=== PATIENT | female | born 1985 | race Caucasian/White ===

== ENCOUNTER 2019-11-05 19:40 | Emergency (ER) | payer OTHER, SELFPAY ==
[2019-11-05 20:01] VITALS: BP 137/81; PULSE 79; O2SAT 95
[2019-11-05 20:04] VITALS: BP 137/81; PULSE 83; RESP 15; TEMP 37.4; O2SAT 99; BMI 31.1
[2019-11-05 20:36] LABS: Add Manual Diff / Slide Review NO; Basophils Absolute Auto 0 /uL (0-100); Basophils Percent Auto 0.4 % (0-2); Eosinophils Absolute Auto 200 /uL (0-450); Hematocrit 41.1 % (36-46); Hemoglobin 14.3 g/dL (12.0-16.0); Lymphocytes Absolute Auto 2500 /uL (1100-4500); Lymphocytes Percent Auto 29.3 % (25-40); Mean Corpuscular HGB Conc 34.7 % (30-36); Mean Corpuscular Hemoglobin 32.5 PG (26-34); Mean Corpuscular Volume 93.7 fL (80-100); Monocytes Absolute Auto 600 /uL (0-900); Monocytes Percent Auto 7.5 % (3-14); Neutrophils Absolute Auto 5300 /uL (1500-7000); Neutrophils Percent Auto 60.8 % (50-75); Platelet Count 215 X10^3/uL (150-400); Red Blood Cell Count 4.38 X10^6/uL (4.0-5.2); Red Cell Distribution Width 12.3 % (11.6-14.8); White Blood Cell Count 8.7 X10^3/uL (4.5-11.0)
[2019-11-05 20:40] LABS: Prothrombin Time 11.8 SECONDS (10.1-12.7)
[2019-11-05 20:43] LABS: PTT Partial Thromboplastin Tim 30 SECONDS (26.4-36.2)
--- NOTE | 2019-11-05 20:51 | ED_ITS ---
HPI - <PARADISE Steele - Last Filed: 11/05/19 21:43> General Chief complaint: Urogenital-Female Stated complaint: vrt mechanic problem, bleeding, positive test Time Seen by Provider: 11/05/19 19:57 Source: patient Mode of arrival: Ambulatory Limitations: no limitations History of Present Illness HPI Narrative: This is a 34-year-old female, nonsmoker, who presents to ED with vaginal bleeding with positive home test yesterday. LMP was 10/11/18. Patient reports with 2 electve AB and 3 spontaneous AB in the past. Patient reports [facility] [place] [facility] DEVI-3 and was to follow-up in 6 weeks if pathology test was normal. Patient states has had small amount of brownish vaginal discharge after the procedure but this morning she noticed brown and red vaginal spotting and this afternoon she had soaked a panty liner with blood before coming into ED. Patient reports she and her partner have been trying to conceive and currently takes folic acid, vitamin, vitamin-D, omega-3 and anti acid. Patient reports chronic medical history as scoliosis with a corrective surgery. Patient reports mild cramping in suprapubic region and rates 3 to 7/10 pain. Date of Last Menstrual Period: 10/12/19 Related Data Home Medications Medication Instructions Recorded Confirmed No Known Home Medications 06/14/18 06/14/18 Allergies Allergy/AdvReac Type Severity Reaction Status Date / Time No Known Drug Allergies Allergy Verified 06/14/18 11:06 Review of Systems <PARADISE Steele - Last Filed: 11/05/19 21:43> Review of Systems Narrative: General: Denies fever, chills, fatigue, malaise, sweats. HEENT: Denies sinus pain, ear pain, sore throat, difficulty swallowing, dizziness. Respiratory: Denies dyspnea, cough, wheezing, hemoptysis, sputum. Cardiovascular: Denies chest pain, palpitations, orthopnea, edema. Gastrointestinal: Denies nausea, vomiting, abdominal pain, diarrhea, constipation, melena. : See HPI Musculoskeletal: Denies weakness, joint pain or bony pain. Skin: Denies rash, skin lesions, or other. Neurologic: Denies weakness, headache, numbness, change in speech, confusion, seizures, incoordination. Psychiatric: No concerning psychosocial issues. 12-point review of systems is negative except for those stated above. PMFSH - <PARADISE Steele - Last Filed: 11/05/19 21:43> Past Medical History Additional medical history: Scoliosis Surgical history: Reports other (Scoliosis corrective surgery) INFORMATION SERVICES CONSULTANT history: Reports Spontaneous (3), Therapeutic (2) and Cervical Dysplasia (DEVI 3) Date of Last Menstrual Period: 10/12/19 Family History Family history: Reports non-contributory Exam <PARADISE Steele - Last Filed: 11/05/19 21:43> Narrative Exam Narrative: GEN: Alert, oriented x 3, well appearing and nourished, and in no acute distress. Head: Normal cephalic, atraumatic. No scalp or temporal tenderness, palpable mass or rash. EYES: Pupils are equal, round, and reactive to light and accommodation. Extraocular muscles are intact bilaterally. There is no subconjunctival hemorrhage, exudate and sclera non-icteric. ENT: Hearing grossly intact. Airway patent. Neck: Trachea in midline. No JVD, non-tender without lymphadenopathy. No masses or thyroid megaly. Supple, non-tender and no meningeal signs. RESPIRATORY:No cough, wheezes. No stridor, respiratory distress, increase work of breathing, or accessary muscle used. ABD: Abdomen soft, nontender and non-distended. No guarding or rebound tenderness to palpate. Bowel sounds are normal in all 4 quadrants. There is no palpable masses or organomegaly. EXT: Full painless ROM of all extremities with no loss of sensation, strength, effusion or edema. SKIN: Warm, dry, normal color for patient. No erythema, lesions or rash over visible areas. BACK: Nontender without deformity or crepitance. No flank tenderness. NEUROLOGICAL: Alert and oriented to place, time and person. Sensation and motor function intact bilaterally. No facial droops, dysphasia. PSYCHIATRIC: Good judgement and reason, without hallucinations, abnormal affect or abnormal behaviors during the examination. Patient is not suicidal. Initial Vital Signs Initial Vital Signs: Vital Signs Pulse Rate 79 11/05/19 20:01 Blood Pressure 137/81 11/05/19 20:01 Pulse Oximetry 95 11/05/19 20:01 External Female Exam: normal external appearance Speculum Exam - Vagina: normal appearance of the vagina, no lacerations, no lesions, No tissue present in vagina, no masses and no swelling Speculum Exam - Cervix: closed and abnormal cervical discharge (scant amount fo blood tinged discharge) bloody and clear OB/External & Speculum: no tissue noted in vagina <Sima Mcclellan MD - Last Filed: 11/05/19 23:05> Initial Vital Signs Initial Vital Signs: Vital Signs Pulse Rate 79 11/05/19 20:01 Blood Pressure 137/81 11/05/19 20:01 Pulse Oximetry 95 11/05/19 20:01 Scores <PARADISE Steele - Last Filed: 11/05/19 21:43> GCS Proctor coma scale eye opening: Spontaneous Proctor coma scale verbal response: Orientated Proctor coma scale motor response: Obey commands Proctor coma scale total score: 15 Course <PARADISE Steele - Last Filed: 11/05/19 21:43> Orders Ordered: ED Orders 11/05/19 20:25 ABO RH Type Stat Complete Blood Count AUTO DIFF Stat HCG Quantitative /Beta subunit Stat Partial Thromboplastin Time Stat Prothrombin Time INR Stat Vital Signs Vital signs: Vital Signs - 8 hr 11/05/19 20:01 11/05/19 20:04 11/05/19 21:32 Temperature 99.3 F Pulse Rate 79 83 84 Respiratory Rate 15 18 Blood Pressure 137/81 137/81 133/69 Pulse Oximetry 95 99 97 <Sima Mcclellan MD - Last Filed: 11/05/19 23:05> Orders Ordered: ED Orders 11/05/19 20:25 ABO RH Type Stat Complete Blood Count AUTO DIFF Stat HCG Quantitative /Beta subunit Stat Partial Thromboplastin Time Stat Prothrombin Time INR Stat Vital Signs Vital signs: Vital Signs - 8 hr 11/05/19 20:01 11/05/19 20:04 11/05/19 21:32 Temperature 99.3 F Pulse Rate 79 83 84 Respiratory Rate 15 18 Blood Pressure 137/81 137/81 133/69 Pulse Oximetry 95 99 97 MDM - OB/Uterine Contractions <PARADISE Steele - Last Filed: 11/05/19 21:43> Differential Diagnosis Differential diagnosis: Likely other (vaginal bleedin during , threaten , s/p LEEP procedure and bleeding) Medical Records Attestation: I reviewed the patient's medical records. Lab Data Attestation: I reviewed the patient's lab results. Result diagrams: 11/05/19 20:25 Labs: Lab Results 11/05/19 11/05/19 11/05/19 Range/Units 20:25 20:25 20:25 WBC 8.7 (4.5-11.0) X10^3/uL RBC 4.38 (4.0-5.2) X10^6/uL Hgb 14.3 (12.0-16.0) g/dL Hct 41.1 (36-46) % MCV 93.7 (80-100) fL MCH 32.5 (26-34) PG MCHC 34.7 (30-36) % RDW 12.3 (11.6-14.8) % Plt Count 215 (150-400) X10^3/uL Neut % (Auto) 60.8 (50-75) % Lymph % (Auto) 29.3 (25-40) % [place] % (Auto) 7.5 (3-14) % Eos % (Auto) 2.0 (2-4) % Baso % (Auto) 0.4 (0-2) % Neut # (Auto) 5300 (5307-0116) /uL Lymph # (Auto) 2500 (2399-1493) /uL [place]eman # (Auto) 600 (0-900) /uL Eos # (Auto) 200 (0-450) /uL Baso # (Auto) 0 (0-100) /uL PT 11.8 (10.1-12.7) SECONDS INR 1.0 (0.9-1.3) APTT 30 (26.4-36.2) SECONDS HCG, Quant 54.8 mIU/mL Blood Type 11/05/19 Range/Units 20:25 WBC (4.5-11.0) X10^3/uL RBC (4.0-5.2) X10^6/uL Hgb (12.0-16.0) g/dL Hct (36-46) % MCV (80-100) fL MCH (26-34) PG MCHC (30-36) % RDW (11.6-14.8) % Plt Count (150-400) X10^3/uL Neut % (Auto) (50-75) % Lymph % (Auto) (25-40) % [place]eman % (Auto) (3-14) % Eos % (Auto) (2-4) % Baso % (Auto) (0-2) % Neut # (Auto) (7760-0827) /uL Lymph # (Auto) (9449-4476) /uL Hardeman # (Auto) (0-900) /uL Eos # (Auto) (0-450) /uL Baso # (Auto) (0-100) /uL PT (10.1-12.7) SECONDS INR (0.9-1.3) APTT (26.4-36.2) SECONDS HCG, Quant mIU/mL Blood Type O Positive Point of Care Testing Test Results Positive Urine Dip Bedside Urine Glucose Negative Bedside Urine Bilirubin - Negative Bedside Urine Ketone - Negative Urine Specific [place] 1.025 Bedside Urine Occult Blood + Bedside Urine pH 6.0 Bedside Urine Protein - Negative Bedside Urine Urobilinogen - Negative Bedside Urine Nitrite - Negative Bedside Urine Leukocytes - Negative Esterase MDM Narrative Medical decision making narrative: This is a 34 year old female with and s/p LEEP procedure 1 week ago presents to ED with positive home test and small amount of vaginal bleeding. Patient reports she had negative test done before the LEEP procedure and had positive urine test at home yesterday. Patient reports mild suprapubic cramping pain without nausea or vomiting. Patient reports has been healing well after LEEP with small amount of brownish vaginal discharge which turned more red today. Normal external vaginal exam with very scant of lightly blood tinged and clear fluid from cervix os and around the cervix. Normal CBC and coag results with B-HCG of 54.8 today and not meeting discriminatory quant level for ultrasound test to see a viable at this time due to early . We discussed close follow-up to recheck B-HCG, abdominal pain and bleeding in 2 days. Patient is in process of setting up PCP. Advised to call back the clinic or [place] [facility] for follow up and if unable to for next 2-3 days, then return to ED for re-evaluation. Patient advise continue her outpatient medication and informed to take Tylenol as needed for pain management. Patient verbalized understanding and in agreement with treatment plan. No further question has been expressed. <Sima Mcclellan MD - Last Filed: 11/05/19 23:05> Lab Data Labs: Lab Results 11/05/19 11/05/19 11/05/19 Range/Units 20:25 20:25 20:25 WBC 8.7 (4.5-11.0) X10^3/uL RBC 4.38 (4.0-5.2) X10^6/uL Hgb 14.3 (12.0-16.0) g/dL Hct 41.1 (36-46) % MCV 93.7 (80-100) fL MCH 32.5 (26-34) PG MCHC 34.7 (30-36) % RDW 12.3 (11.6-14.8) % Plt Count 215 (150-400) X10^3/uL Neut % (Auto) 60.8 (50-75) % Lymph % (Auto) 29.3 (25-40) % [place]eman % (Auto) 7.5 (3-14) % Eos % (Auto) 2.0 (2-4) % Baso % (Auto) 0.4 (0-2) % Neut # (Auto) 5300 (1037-9795) /uL Lymph # (Auto) 2500 (1314-8199) /uL Hardeman # (Auto) 600 (0-900) /uL Eos # (Auto) 200 (0-450) /uL Baso # (Auto) 0 (0-100) /uL PT 11.8 (10.1-12.7) SECONDS INR 1.0 (0.9-1.3) APTT 30 (26.4-36.2) SECONDS HCG, Quant 54.8 mIU/mL Blood Type 11/05/19 Range/Units 20:25 WBC (4.5-11.0) X10^3/uL RBC (4.0-5.2) X10^6/uL Hgb (12.0-16.0) g/dL Hct (36-46) % MCV (80-100) fL MCH (26-34) PG MCHC (30-36) % RDW (11.6-14.8) % Plt Count (150-400) X10^3/uL Neut % (Auto) (50-75) % Lymph % (Auto) (25-40) % Hardeman % (Auto) (3-14) % Eos % (Auto) (2-4) % Baso % (Auto) (0-2) % Neut # (Auto) (1165-7291) /uL Lymph # (Auto) (1582-5131) /uL Hardeman # (Auto) (0-900) /uL Eos # (Auto) (0-450) /uL Baso # (Auto) (0-100) /uL PT (10.1-12.7) SECONDS INR (0.9-1.3) APTT (26.4-36.2) SECONDS HCG, Quant mIU/mL Blood Type O Positive Point of Care Testing Test Results Positive Urine Dip Bedside Urine Glucose Negative Bedside Urine Bilirubin - Negative Bedside Urine Ketone - Negative Urine Specific [place] 1.025 Bedside Urine Occult Blood + Bedside Urine pH 6.0 Bedside Urine Protein - Negative Bedside Urine Urobilinogen - Negative Bedside Urine Nitrite - Negative Bedside Urine Leukocytes - Negative Esterase Discharge Plan Departure Patient Disposition: Home Clinical Impression: Vaginal bleeding during , Status post LEEP (loop electrosurgical excision procedure) of cervix Discharge Date/Time: 11/05/19 21:43 Instructions: DI for Loop Electrosurgical Excision Procedure, DI for Vaginal Bleeding During Activity Restrictions/Additional Instructions: You have been diagnosed with [vaginal bleeding during early and s/p L EEP procedure. CBC and coag tests were unremarkable. Your blood type is O positive. Quantitative hCG today is 54.8 and normal level during 1-10 week is between 44-256,740. No significant vaginal bleeding according to pelvic exam. At this time, it is unable to see viable pulse ultrasound test since your is too early given 1 week ago test was negative before LEEP procedure. It is not clear the vaginal bleeding is due to early , threatened , or s/p LEEP procedure at this time.]. What to do: *Take your medications as directed. You can continue your current medications vitamin, folic acid and etc. you can take Tylenol as needed for pain management. *Follow up with your primary care provider in 2-3 days, call for an appointment. It is very important to follow-up on quantitative hCG and abdominal pain. Let them know you were seen in the ED and that we asked you to be seen in follow up. If you are not be able [facility] or future primary care physician, you can return to ED for the follow-up test. *Return to ED if you have any new, worsening, or concerning symptoms, such as [chest pain, breathing difficulty, fever, increasing bleeding that you have to change regular pad every hour for 3 hours, dizziness, severe abdominal pain or any other acute concerns]. Prescriptions: No Action No Known Home Medications RF: 0 <Sima Mcclellan MD - Last Filed: 11/05/19 23:05> Cosign ED Attending Cosignature Attestation: I was immediately available in the department for consultation throughout this patient's visit. I agree with documentation as above. Sima Mcclellan MD
[2019-11-05 21:01] LABS: HCG Quantitative /Beta subunit 54.8 mIU/mL
[2019-11-05 21:32] VITALS: BP 133/69; PULSE 84; RESP 18; O2SAT 97
== END 2019-11-05 21:43 | disposition home or self-care (01) ==
PROVIDERS: Emergency Provider Nurse Practitioner Family
DX: Z98.890 Other specified postprocedural states (principal); O20.9 Hemorrhage in early pregnancy, unspecified
CPT/HCPCS: 36415; 81003; 81025; 84702; 85025; 85610; 85730; 86900; 86901; 99282; 99283

== ENCOUNTER → 2019-12-10 19:23 | Outpatient (ROUT) | payer OTHER, SELFPAY ==
[2019-12-10 21:08] LABS: Urine N gonorrhoeae NOT DETECTED
[2019-12-10 21:13] LABS: Urine Chlamydia NOT DETECTED
== END ==
PROVIDERS: Visit Provider Obstetrics & Gynecology
DX: Z34.81 Encounter for supervision of other normal pregnancy, first trimester (principal); Z3A.08 8 weeks gestation of pregnancy
CPT/HCPCS: 87491; 87591

== ENCOUNTER → 2019-12-31 15:49 | Outpatient (CLI) | payer OTHER, SELFPAY ==
[2019-12-31 17:30] LABS: Appearance Urine UA CLEAR; Bilirubin Urine UA NEGATIVE (NEGATIVE); Color Urine UA YELLOW; Glucose Urine UA NEGATIVE (Negative); Ketones Urine UA NEGATIVE (NEGATIVE); Leukocyte Esterase Urine UA NEGATIVE (NEGATIVE); Nitrite Urine UA NEGATIVE (Negative); Occult Blood Urine UA NEGATIVE (Negative); Protein Urine UA NEGATIVE (Negative); Specific Gravity Urine UA 1.015 (1.000-1.035); Urobilinogen Urine UA 0.2 E.U./dL (0.2)
[2019-12-31 18:07] LABS: Add Manual Diff / Slide Review NO; Basophils Absolute Auto 0 /uL (0-100); Basophils Percent Auto 0.3 % (0-2); Eosinophils Absolute Auto 0 /uL (0-450); Eosinophils Percent Auto 0.6 % (2-4); Hematocrit 42.5 % (36-46); Hemoglobin 14.8 g/dL (12.0-16.0); Lymphocytes Absolute Auto 1700 /uL (1100-4500); Lymphocytes Percent Auto 20.4 % (25-40); Mean Corpuscular HGB Conc 34.7 % (30-36); Mean Corpuscular Hemoglobin 33.1 PG (26-34); Mean Corpuscular Volume 95.6 fL (80-100); Monocytes Absolute Auto 600 /uL (0-900); Monocytes Percent Auto 6.5 % (3-14); Neutrophils Absolute Auto 6200 /uL (1500-7000); Neutrophils Percent Auto 72.2 % (50-75); Platelet Count 190 X10^3/uL (150-400); Red Blood Cell Count 4.45 X10^6/uL (4.0-5.2); Red Cell Distribution Width 12.5 % (11.6-14.8); White Blood Cell Count 8.5 X10^3/uL (4.5-11.0)
[2020-01-01 06:01] LABS: RPR Screen Non Reactive (Non Reactive)
[2020-01-01 08:09] LABS: Varicella IgG Antibody >4000 index (Immune >165)
[2020-01-03 17:45] LABS: HIV 1 & 2 Ab/Ag 4th Gen Combo NEGATIVE (NEGATIVE); Hep C Virus Ab w/Reflex Quant NEGATIVE s/c (NEGATIVE); Hepatitis B Surface Antigen NEGATIVE s/c (NEGATIVE); Rubella Antibody IgG 34.5 IU/mL (>15)
== END ==
PROVIDERS: Referring Provider Obstetrics & Gynecology; Visit Provider Obstetrics & Gynecology
DX: Z34.01 Encounter for supervision of normal first pregnancy, first trimester (principal)
CPT/HCPCS: 36415; 80055; 81003; 86787; 86803; 86850; 86900; 86901; 87086; 87389

== ENCOUNTER → 2020-02-01 16:26 | Outpatient (CLI) | payer OTHER, SELFPAY ==
[2020-02-04 21:07] LABS: AFP Value 38.8 ng/mL (.); Gestational Age Ultrasound (.); Insulin Dep Diabetes No (.); OSBR Risk 1IN 3600 (.); Results Report (.); Test Results *Screen Negative* (.)
== END ==
PROVIDERS: PCP Obstetrics & Gynecology; Referring Provider Obstetrics & Gynecology; Visit Provider Obstetrics & Gynecology
DX: Z34.82 Encounter for supervision of other normal pregnancy, second trimester (principal); Z3A.16 16 weeks gestation of pregnancy
CPT/HCPCS: 36415; 82105

== ENCOUNTER → 2020-03-02 12:46 | Outpatient (CLI) | payer OTHER, SELFPAY ==
--- NOTE | 2020-03-02 12:46 | DI.US.S_ITS ---
PROCEDURE: US OB >= 14 WEEKS FETUS INDICATIONS: 20 week anatomy scan OUTSIDE/PRIOR DATING DATA: Last menstrual period (LMP): 10/12/19. LMP-based estimated date of delivery (MARJORIE): 07/18/20 First dating scan (date and location): 03/02/20 Estimated date of delivery (MARJORIE) from first dating scan: 07/11/20 TECHNIQUE: Real-time scanning was performed of the fetus, with image documentation and biometric measurements. Endovaginal scanning: Not needed. COMPARISON: [facility], , OB >= 14 WEEKS FETUS, 01/31/2020, 16:38. FINDINGS: General: A single living intrauterine gestation is present. Presentation: Vertex. Placenta: Placental position is anterior , without previa. Amniotic fluid index: 16.2 cm, normal range is 5-24 cm. heart rate: 162 beats per minute. Maternal cervical canal: 4.0 cm long. Normal lower limit is 2.5 cm. biometrics: Biparietal diameter: 5.0 cm, 21 weeks 1 day Head circumference: 18.8 cm, 21 weeks 1 day Abdominal circumference: 16.5 cm, 21 weeks 4 days Femur length: 3.6 cm, 21 weeks 3 days Estimated gestational age from initial scan: not applicable. Composite gestational age from present scan: 21 weeks 2 days Estimated weight and percentile: 424 g, upper 95th percentile Measurement variability for biometric dating: +/- 7 days from 14 weeks to 15 weeks 6 days gestation, +/- 10 days from 16 weeks to 21 weeks 6 days gestation, +/- 2 weeks from 22 weeks to 27 weeks 6 days gestation, +/- 3 weeks for 28 weeks gestation or later. weight reference: 4500 g or EFW >90/95% is considered macrosomia or large for gestational age. EFW <10% is small for gestational age. EFW 5% or less is considered intra-uterine growth restriction. Anatomic survey: Neuro: Ventricles are non-dilated at less than 10 mm. Cisterna magna is normal at 3-11 mm. Cerebellum is normal in size and morphology. Nuchal skin fold: Normal at less than 6 mm between 14-21 weeks gestational age. Face: Nose and lips, facial profile are normal. Spine: No evidence for spina bifida. Heart: 4-chambered heart is present, with normal ventricular outflow tracts. Diaphragm: Diaphragm is intact. Stomach: Left-sided stomach is present. Kidneys: No hydronephrosis. Normal is less than 5 mm in 2nd trimester, less than 7 mm in 3rd trimester. Cord: 3-vessel cord has orthotopic insertion. Bladder: Normal in size. Extremities: All 4 extremities identified. IMPRESSION: The current estimated weight is at the upper 95th percentile in this with current gestational age estimate 21 weeks 2 days. Follow-up biometry is recommended in 2 weeks to determine whether early macrosomia is developing. Normal survey of anatomy. The delivery date is projected to be centered on 07/11/20. Dictated by: Vern Brandon M.D. on 03/02/2020 at 14:14 Approved by: Vern Brandon M.D. on 03/02/2020 at 14:17
== END ==
PROVIDERS: Referring Provider Obstetrics & Gynecology; Visit Provider Obstetrics & Gynecology
DX: Z34.82 Encounter for supervision of other normal pregnancy, second trimester (principal); Z3A.21 21 weeks gestation of pregnancy
CPT/HCPCS: 76811

== ENCOUNTER 2020-03-18 07:33 | Emergency (ER) | payer OTHER, MEDICAID, SELFPAY ==
[2020-03-18 07:39] VITALS: BP 122/84; PULSE 91; RESP 16; TEMP 36.5; O2SAT 98; BMI 34.0
--- NOTE | 2020-03-18 07:42 | ED_ITS ---
HPI - URI/Sore Throat General Chief Complaint: Upper Respiratory Symptoms Stated Complaint: asthma issues/couldnt sleep Time Seen by Provider: 03/18/20 07:38 Source: patient Mode of arrival: Ambulatory Limitations: no limitations History of Present Illness HPI Narrative: Patient is a 34-year-old female who is , currently 20 weeks with history of asthma presenting with shortness of breath. She states she could not sleep lying down last night because she was so short of breath she needed to sleep with 4 pillows. She denies any dyspnea with exertion. She does have some cough but it is just phlegm. She feels some chest pressure. She has not had any asthma related issues for years. They are doing some construction at home and thought that some of the dust may have irritated her asthma. She feels that she is wheezing now. She has not had any fever. She denies any abdominal pain vaginal bleeding or fluid. She has noticed some blood streaked stools off and on. MD Complaint: cough Related Data Home Medications Medication Instructions Recorded Confirmed calcium carbonate-magnesium tab PO 11/24/19 01/31/20 hydroxide 412 mg-80 mg chewable tablet cholecalciferol (vitamin D3) 50 50 mcg PO DAILY 11/24/19 01/31/20 mcg (2,000 unit) capsule docosahexaenoic acid 200 mg capsule mg PO 11/24/19 01/31/20 folic acid 800 mcg tablet 0.8 mg PO DAILY 11/24/19 01/31/20 prenat.vits,eber,mty-zbdm-swmsh 1 tab PO DAILY 11/24/19 01/31/20 Previous Rx's Medication Instructions Recorded ondansetron 4 mg disintegrating 4 mg PO Q8H PRN #20 tab 02/24/20 tablet Allergies Allergy/AdvReac Type Severity Reaction Status Date / Time mint Allergy Severe Lips swell Verified 03/18/20 07:41 up Review of Systems Review of Systems Narrative: GENERAL: Denies chills, fatigue, malaise, fever, sweats, travel HEENT: Denies sinus pain, ear pain, sore throat, difficulty swallowing, neck pain RESPIRATORY: See HPI CARDIOVASCULAR: Denies chest pain, palpitations, orthopnea, edema GASTROINTESTINAL: Denies nausea, vomiting, abdominal pain, diarrhea, constipation, melena. : Denies dysuria, frequency, incontinence, hematuria, urinary retention, flank pain. MUSCULOSKELETAL: Denies weakness, joint pain, or bony pain SKIN: No rash, no erythema, no pruritus NEUROLOGIC: Denies weakness, dizziness, headache, numbness, change in speech, confusion PSYCHIATRIC: No concerning psychosocial issues. 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 Father Medication administered in error Grandfather Hepatic sclerosis Grandmother No problems noted. 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 HEENT: Head atraumatic,EOMI, pupils reactive, face symmetric, moist mucous membr anes CARDIOVASCULAR: Regular rate and rhythm without murmurs, rubs or gallops. RESPIRATORY: Speaks in full sentences without difficulty wheezing is noted on right no sign of respiratory distress ABDOMEN: Soft, gravid nontender EXTREMITIES: Normal range of motion, no clubbing or edema. Neurovascularly intact NEUROLOGICAL: Alert and oriented x4.Normal gait and speech. SKIN: Warm, dry, no laceration, no petechiae, no rashes or lesions. Course Orders Ordered: ED Orders 03/18/20 07:43 RT Consult Eval and Treat NOW 03/18/20 07:50 Consult to Respiratory Therapy Evaluate & Treat EKG-12 Lead Stat 03/18/20 07:55 Complete Blood Count AUTO DIFF Stat Comprehensive Metabolic Panel Stat Magnesium Stat NT-proBNP (BNP-Adult 18+) Stat Troponin & CK Cardiac Panel Stat Discontinued Medications Albuterol (Albuterol Hfa Prepack) 1 box MISC SEEINSTR ONE Stop: 03/18/20 07:50 Last Admin: 03/18/20 08:30 Dose: 1 box Documented by: Vital Signs Vital signs: Vital Signs - 8 hr 03/18/20 07:39 03/18/20 08:34 03/18/20 08:40 Temperature 97.7 F Pulse Rate 91 H 89 Respiratory Rate 16 18 12 Blood Pressure 122/84 Pulse Oximetry 98 98 99 MDM - URI/Sore Throat Lab Data Attestation: I reviewed the patient's lab results. Result diagrams: 03/18/20 07:55 03/18/20 07:55 Labs: Lab Results 03/18/20 03/18/20 03/18/20 Range/Units 07:55 07:55 07:55 WBC 10.1 (4.5-11.0) X10^3/uL RBC 3.81 L (4.0-5.2) X10^6/uL Hgb 12.6 (12.0-16.0) g/dL Hct 36.5 (36-46) % MCV 95.9 (80-100) fL MCH 33.2 (26-34) PG MCHC 34.6 (30-36) % RDW 13.0 (11.6-14.8) % Plt Count 140 L (150-400) X10^3/uL Neut % (Auto) 66.6 (50-75) % Lymph % (Auto) 23.6 L (25-40) % [place] % (Auto) 7.7 (3-14) % Eos % (Auto) 1.7 L (2-4) % Baso % (Auto) 0.4 (0-2) % Neut # (Auto) 6700 (2815-3763) /uL Lymph # (Auto) 2400 (4984-8734) /uL [place] # (Auto) 800 (0-900) /uL Eos # (Auto) 200 (0-450) /uL Baso # (Auto) 0 (0-100) /uL Sodium 133 L (137-145) mmol/L Potassium 3.9 (3.4-5.1) mmol/L Chloride 106 (98-107) mmol/L Carbon Dioxide 25 (22-32) mmol/L BUN 8 (7-17) mg/dL Creatinine 0.42 L (0.52-1.04) mg/dL Estimated GFR > 60.0 (>60) mL/min BUN/Creatinine Ratio 19.0 (6-22) Glucose 94 (70-100) mg/dL Calcium 8.8 (8.4-10.2) mg/dL Magnesium 1.7 (1.6-2.3) mg/dL Total Bilirubin 0.3 (0.2-1.3) mg/dL AST 39 H (14-36) IU/L ALT 46 H (<35) IU/L Alkaline Phosphatase 63 (38-126) U/L Total Creatine Kinase 49 (30-135) U/L CK-MB (CK-2) TNP CK-MB (CK-2) Rel Index TNP Troponin I < 0.012 (0.01-0.034) ng/mL NT-Pro-B Natriuret Pep 26 (<125) pg/mL Total Protein 6.7 (6.3-8.2) g/dL Albumin 3.5 (3.5-5.0) g/dL Globulin 3.2 (1.7-4.1) g/dL Albumin/Globulin Ratio 1.1 (1.0-2.8) ECG Data Attestation: I personally reviewed and interpreted this ECG as follows: Prior ECG tracings: not available for review Interpretation: Normal sinus rhythm rate 91 p.r. interval 132 QRS [address] changes or T-wave inversions MDM Narrative Medical decision making narrative: Patient improved significantly with al buterol. BNP is negative no sign of -induced congestion of heart failure/cardiomyopathy. At this time recommend outpatient follow-up. Discharge Plan Departure Patient Disposition: Home Clinical Impression: Acute asthma exacerbation Qualifiers: Asthma severity: moderate Asthma persistence: unspecified Qualified Code(s): J45.901 - Unspecified asthma with (acute) exacerbation Instructions: Asthma -- Adult Activity Restrictions/Additional Instructions: *You have been diagnosed with asthma *What to do: At this time it appears that her having an asthma reaction. *Continue to take medications as directed Albuterol inhaler 1-2 puffs with spacer if needed for shortness of breath or wheezing *Follow up with your primary care provider in 2-3 days *Return to ER if you should have increasing shortness of breath, chest pain[or] any new, worsening or concerning symptoms Prescriptions: No Action prenat.vits,eber,pfl-sexk-ncfdk Tablet 1 tab PO DAILY RF: 0 folic acid 800 mcg tablet 0.8 mg PO DAILY RF: 0 cholecalciferol (vitamin D3) 50 mcg (2,000 unit) capsule 50 mcg PO DAILY RF: 0 ondansetron 4 mg tablet,disintegrating 4 mg PO Q8H PRN (Reason: nausea and vomiting) Qty: 20 RF: 2 Algal [place]occas[place]-3 DHA 200 mg capsule PO RF: 0 calcium carbonate-mag hydroxid 412-80 mg tablet,chewable PO RF: 0 Referrals: Paulina Burch MD [Primary Care Provider] -
[2020-03-18 08:05] LABS: Add Manual Diff / Slide Review NO; Basophils Absolute Auto 0 /uL (0-100); Basophils Percent Auto 0.4 % (0-2); Eosinophils Absolute Auto 200 /uL (0-450); Eosinophils Percent Auto 1.7 % (2-4); Hematocrit 36.5 % (36-46); Hemoglobin 12.6 g/dL (12.0-16.0); Lymphocytes Absolute Auto 2400 /uL (1100-4500); Lymphocytes Percent Auto 23.6 % (25-40); Mean Corpuscular HGB Conc 34.6 % (30-36); Mean Corpuscular Hemoglobin 33.2 PG (26-34); Mean Corpuscular Volume 95.9 fL (80-100); Monocytes Absolute Auto 800 /uL (0-900); Monocytes Percent Auto 7.7 % (3-14); Neutrophils Absolute Auto 6700 /uL (1500-7000); Neutrophils Percent Auto 66.6 % (50-75); Platelet Count 140 X10^3/uL (150-400); Red Blood Cell Count 3.81 X10^6/uL (4.0-5.2); White Blood Cell Count 10.1 X10^3/uL (4.5-11.0)
[2020-03-18 08:15] LABS: Alanine Aminotransferase 46 IU/L (<35); Albumin 3.5 g/dL (3.5-5.0); Albumin Globulin Ratio 1.1 (1.0-2.8); Alkaline Phosphatase 63 U/L (38-126); Aspartate Aminotransferase 39 IU/L (14-36); Bilirubin Total 0.3 mg/dL (0.2-1.3); Blood Urea Nitrogen 8 mg/dL (7-17); Calcium 8.8 mg/dL (8.4-10.2); Carbon Dioxide 25 mmol/L (22-32); Chloride 106 mmol/L (98-107); Creatine Kinase 49 U/L (30-135); Estimated Glomerular Filt Rate > 60.0 mL/min (>60); Globulin 3.2 g/dL (1.7-4.1); Glucose 94 mg/dL (70-100); HEMOLYSIS < 15 (0-50); Magnesium 1.7 mg/dL (1.6-2.3); Potassium 3.9 mmol/L (3.4-5.1); Sodium 133 mmol/L (137-145); Total Protein 6.7 g/dL (6.3-8.2)
[2020-03-18 08:23] LABS: NT-proBNP (BNP-Adult 18+) 26 pg/mL (<125)
[2020-03-18 08:26] LABS: Troponin I < 0.012 ng/mL (0.01-0.034)
[2020-03-18] MEDS: ALBUTEROL HFA PREPACK 1 BOX MISC (08:30)
[2020-03-18 08:34] VITALS: PULSE 89; RESP 18; O2SAT 98
[2020-03-18 08:40] VITALS: RESP 12; O2SAT 99
[2020-03-18 08:54] VITALS: BP 121/74
== END 2020-03-18 08:56 | disposition home or self-care (01) ==
PROVIDERS: Emergency Provider Emergency Medicine; PCP Obstetrics & Gynecology
DX: J45.901 Unspecified asthma with (acute) exacerbation (principal); J02.9 Acute pharyngitis, unspecified; R05 Cough
CPT/HCPCS: 36415; 80053; 81003; 82550; 83735; 83880; 84484; 85025; 93005; 93010; 94150; 94640; 99283

== ENCOUNTER → 2020-03-31 10:57 | Outpatient (CLI) | payer OTHER, MEDICAID, SELFPAY ==
--- NOTE | 2020-03-31 10:58 | DI.US.S_ITS ---
PROCEDURE: US OB FOLLOW UP INDICATIONS: GROWTH OUTSIDE/PRIOR DATING DATA: Last menstrual period (LMP): 09/22/2019. LMP-based estimated date of delivery (MARJORIE): 07/18/2020 . First dating scan (date and location): 03/02/2020 . Estimated date of delivery (MARJORIE) from first dating scan: 07/11/2020 . TECHNIQUE: Real-time scanning was performed of the fetus, with image documentation and biometric measurements. Endovaginal scanning: No COMPARISON: [facility], OB >= 14 WEEKS FETUS, 01/31/2020, 16:38. [facility], , OB >= 14 WEEKS FETUS, 03/02/2020, 13:16. FINDINGS: General: A single living intrauterine gestation is present. Presentation: Transverse. Placenta: Placental position is anterior , without previa. Amniotic fluid index: 19.8 cm, normal range is 5-24 cm. heart rate: 140 beats per minute. Maternal cervical canal: 3.8 cm long. Normal lower limit is 2.5 cm. biometrics: Biparietal diameter: 25 weeks 0 days Head circumference: 24 weeks 3 days Abdominal circumference: 26 weeks 4 days Femur length: 24 weeks 6 days Estimated gestational age from initial scan: 25 weeks 3 days Composite gestational age from present scan: 25 weeks 2 days Estimated weight and percentile: 840 g; 51st percentile Measurement variability for biometric dating: +/- 7 days from 14 weeks to 15 weeks 6 days gestation, +/- 10 days from 16 weeks to 21 weeks 6 days gestation, +/- 2 weeks from 22 weeks to 27 weeks 6 days gestation, +/- 3 weeks for 28 weeks gestation or later. weight reference: 4500 g or EFW >90/95% is considered macrosomia or large for gestational age. EFW <10% is small for gestational age. EFW 5% or less is considered intra-uterine growth restriction. Other: Not applicable. IMPRESSION: 1. Single living IUP redemonstrated and interval growth is normal. Dictated by: Vladimir Simons [facility] Interpreted: Delmy Herron MD on 03/31/2020 at 16:55 Approved by: Delmy Herron M.D. on 03/31/2020 at 17:58
== END ==
PROVIDERS: PCP Registered Nurse; Referring Provider Obstetrics & Gynecology; Visit Provider Obstetrics & Gynecology
DX: Z36.89 Encounter for other specified antenatal screening (principal); Z3A.25 25 weeks gestation of pregnancy
CPT/HCPCS: 76816

== ENCOUNTER → 2020-04-27 13:24 | Outpatient (CLI) | payer OTHER, MEDICAID, SELFPAY ==
[2020-04-27 15:41] LABS: Hematocrit 37.7 % (36-46); Hemoglobin 13.1 g/dL (12.0-16.0)
[2020-04-27 16:15] LABS: GTT (PREG) 1 Hour PP 50gm Dose 123 mg/dL (76-139)
== END ==
PROVIDERS: PCP Registered Nurse; Referring Provider Obstetrics & Gynecology; Visit Provider Obstetrics & Gynecology
DX: Z34.82 Encounter for supervision of other normal pregnancy, second trimester (principal); Z3A.26 26 weeks gestation of pregnancy
CPT/HCPCS: 36415; 82950; 85014; 85018

== ENCOUNTER 2020-05-23 05:35 | Observation (INO) | payer OTHER, MEDICAID, SELFPAY | END 2020-05-23 06:05 | disposition home or self-care (01) | LOC: AC 05:39 → LABOR 07:38 | PROVIDERS: Admitting Provider Obstetrics & Gynecology; PCP Registered Nurse; Referring Provider Obstetrics & Gynecology; Visit Provider Obstetrics & Gynecology | DX: O99.213 Obesity complicating pregnancy, third trimester (principal); R07.81 Pleurodynia; R06.02 Shortness of breath; Z3A.32 32 weeks gestation of pregnancy | CPT/HCPCS: G0378; G0379 ==

== ENCOUNTER 2020-05-23 06:07 | Emergency (ER) | payer OTHER, MEDICAID, SELFPAY ==
[2020-05-23] VITALS (10 sets, daily range): BP systolic 109–138; BP diastolic 67–87; PULSE 89–115; RESP 15–22; TEMP 37; O2SAT 94–98; BMI 35.8
--- NOTE | 2020-05-23 06:21 | DI.US.S_ITS ---
PROCEDURE: US PERIPH VENOUS LOW EXTREM BI INDICATIONS: CHEST PAIN TECHNIQUE: Real-time imaging, as well as color and pulse Doppler interrogation, were performed of the deep veins of both legs from the inguinal ligament to the popliteal fossa. COMPARISON: None. FINDINGS: Right: The common femoral, femoral and popliteal veins are normally compressible, and free of intraluminal thrombus. Color and pulse Doppler demonstrate normal phasic intravascular flow. There is normal augmentation response to distal compression maneuver. Left: The common femoral, femoral and popliteal veins are normally compressible, and free of intraluminal thrombus. Color and pulse Doppler demonstrate normal phasic intravascular flow. There is normal augmentation response to distal compression maneuver. IMPRESSION: No sonographic evidence of deep venous thrombosis in the bilateral lower extremities. Dictated by: Sharif Foote M.D. on 05/23/2020 at 8:07 Approved by: Sharif Foote M.D. on 05/23/2020 at 8:08
--- NOTE | 2020-05-23 06:24 | ED.CHESTPAIN ---
HPI - Chest Pain <Joyce C OscaredgardoDO - Last Filed: 05/30/20 09:26> General Chief Complaint: Abdominal Pain Stated Complaint: sharp pain right side Time Seen by Provider: 05/23/20 06:19 Source: patient and family Mode of arrival: Wheelchair Limitations: no limitations History of Present Illness HPI narrative: This is a 34-year-old female comes to the emergency department with complaint of pain on the right side of her chest, patient describes it as pleuritic, worse with cough, sneeze or deep inspiration. She denies fevers or chills. She has had a cough, she does have a history of asthma. She tried her albuterol healer which is helpful for the cough which then resulted in her not being is uncomfortable. She states she does not really feel like she is tight or wheezy. Pain is on the right lateral side of her chest. She denies any falls, trauma, ecchymosis or skin changes. Patient denies any abdominal pain. She has had morning sickness throughout her and states that it got significantly worse and she threw up multiple times over the last day or so. She has not had any changes with bowel movements. She has had some urinary frequency but no urgency, dysuria. No vaginal bleeding or discharge. She is 32 weeks . She states she has had 3 prior miscarriages all before 20 weeks, with 2 prior abortions. She does have a history of Asthma, Spinal fusion surgery for scoliosis. Patient states she has had a sister who had a DVT in her upper extremity with her 4th . Patient denies any tob, etoh or illicit. Related Data Home Medications Medication Instructions Recorded Confirmed calcium carbonate-magnesium tab PO 11/24/19 05/29/20 hydroxide 412 mg-80 mg chewable tablet cholecalciferol (vitamin D3) 50 50 mcg PO DAILY 11/24/19 05/29/20 mcg (2,000 unit) capsule folic acid 800 mcg tablet 0.8 mg PO DAILY 11/24/19 05/29/20 prenat.vits,eber,xrw-zepx-anqru 1 tab PO DAILY 11/24/19 05/29/20 acetaminophen 325 mg capsule 325 mg PO ONCE PRN 03/27/20 05/29/20 Previous Rx's Medication Instructions Recorded albuterol sulfate 90 mcg/actuation 2 puff INHALATION Q4-6H PRN #18 g 03/27/20 aerosol inhaler budesonide 90 mcg/actuation breath 1 inh INHALATION DAILY #1 ea 03/28/20 activated powder inhaler ondansetron 4 mg disintegrating 4 mg PO Q8H PRN #20 tab 04/25/20 tablet Double Electric Breast Pump 1 ea TOPICAL .prn #1 ea 05/01/20 cefuroxime axetil 250 mg tablet 250 mg PO BID #20 tab 05/10/20 pantoprazole 20 mg tablet,delayed 20 mg PO DAILY #30 tab 05/29/20 release Allergies Allergy/AdvReac Type Severity Reaction Status Date / Time mint Allergy Severe Lips swell Verified 05/30/20 08:39 up Review of Systems <Joyce Daly DO - Last Filed: 05/30/20 09:26> Review of Systems ROS Unobtainable: All systems reviewed & are unremarkable except as noted in HPI and below Patient History <Joyce Daly DO - Last Filed: 05/30/20 09:26> Medical History Acne (~2002) Asthma DEVI III (cervical intraepithelial neoplasia grade III) with severe dysplasia (~09/06/18) Heart burn HPV (human papilloma virus) 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 Father Medication administered in error Grandfather Hepatic sclerosis Grandmother No problems noted. 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 Patient ambulated into the department. HEENT: Head normocephalic, atraumatic, EOMI, pupils reactive, face symmetric, moist mucous membranes NECK: Supple, full range of motion CARDIOVASCULAR: Tachycardic but Regular rate and rhythm without murmurs, rubs or gallops. RESPIRATORY: Breath sounds equal bilaterally, no wheezes rales or rhonchi. Mild tachypnea. The patient speaks in full sentences. ABDOMEN: Soft, nontender. Normoactive bowel sounds all 4 quadrants. No guarding or rebound, rigidity, no mass : No CVA tenderness EXTREMITIES: Normal range of motion, no clubbing, mild bilateral lower extremity edema. Neurovascularly intact NEUROLOGICAL: Cranial nerves II through XII grossly intact. Moving all extremities SKIN: Warm, dry, no petechiae, no rashes or lesions. Initial Vital Signs Initial Vital Signs: Vital Signs Temperature 98.6 F 05/23/20 06:10 Pulse Rate 103 H 05/23/20 06:10 Respiratory Rate 05/23/20 06:10 Blood Pressure 136/87 05/23/20 06:10 Pulse Oximetry 97 05/23/20 06:10 <Nik Herron DO - Last Filed: 05/23/20 10:12> Initial Vital Signs Initial Vital Signs: Vital Signs Temperature 98.6 F 05/23/20 06:10 Pulse Rate 103 H 05/23/20 06:10 Respiratory Rate 05/23/20 06:10 Blood Pressure 136/87 05/23/20 06:10 Pulse Oximetry 97 05/23/20 06:10 Course <DO Eduar Santos Last Filed: 05/30/20 09:26> Orders Ordered: Discontinued Medications Acetaminophen (Acetaminophen 325 Mg Tablet) 650 mg PO NOW ONE Stop: 05/23/20 06:20 Last Admin: 05/23/20 06:32 Dose: 650 mg Documented by: JUANA Al Hydrox/Mg Hydrox/Simethicone 20 ml/ Lidocaine HCl 15 ml 0 ml PO NOW ONE Stop: 05/23/20 06:20 Last Admin: 05/23/20 07:19 Dose: Not Given Documented by: JUANA Sodium Chloride (Normal Saline 0.9%) 1,000 mls @ 1,000 mls/hr IV BOLUS ONE Stop: 05/23/20 07:18 Last Infusion: 05/23/20 07:38 Dose: 0 mls/hr Documented by: Admin: 05/23/20 06:32 Dose: 1,000 mls/hr Documented by: JUANA Pantoprazole Sodium (Pantoprazole 40 Mg Vial) 40 mg IV NOW ONE Stop: 05/23/20 06:32 Last Admin: 05/23/20 06:35 Dose: 40 mg Documented by: JUANA Vital Signs Vital signs: Vital Signs - 8 hr 05/23/20 06:10 05/23/20 06:30 05/23/20 06:31 Temperature 98.6 F Pulse Rate 103 H 115 H Respiratory Rate 22 Blood Pressure 136/87 113/77 Pulse Oximetry 97 96 05/23/20 07:00 05/23/20 07:30 Temperature Pulse Rate 99 H 112 H Respiratory Rate Blood Pressure 111/70 Pulse Oximetry 97 94 <Nik Herron DO - Last Filed: 05/23/20 10:12> Orders Ordered: Discontinued Medications Acetaminophen (Acetaminophen 325 Mg Tablet) 650 mg PO NOW ONE Stop: 05/23/20 06:20 Last Admin: 05/23/20 06:32 Dose: 650 mg Documented by: JUANA Randall Hydrox/Mg Hydrox/Simethicone 20 ml/ Lidocaine HCl 15 ml 0 ml PO NOW ONE Stop: 05/23/20 06:20 Last Admin: 05/23/20 07:19 Dose: Not Given Documented by: JUANA Sodium Chloride (Normal Saline 0.9%) 1,000 mls @ 1,000 mls/hr IV BOLUS ONE Stop: 05/23/20 07:18 Last Infusion: 05/23/20 07:38 Dose: 0 mls/hr Documented by: Admin: 05/23/20 06:32 Dose: 1,000 mls/hr Documented by: JUANA Pantoprazole Sodium (Pantoprazole 40 Mg Vial) 40 mg IV NOW ONE Stop: 05/23/20 06:32 Last Admin: 05/23/20 06:35 Dose: 40 mg Documented by: JUANA Vital Signs Vital signs: Vital Signs - 8 hr 05/23/20 06:10 05/23/20 06:30 05/23/20 06:31 Temperature 98.6 F Pulse Rate 103 H 115 H Respiratory Rate 22 Blood Pressure 136/87 113/77 Pulse Oximetry 97 96 05/23/20 07:00 05/23/20 07:30 Temperature Pulse Rate 99 H 112 H Respiratory Rate Blood Pressure 111/70 Pulse Oximetry 97 94 MDM - Chest Pain <Joyce Daly DO - Last Filed: 05/30/20 09:26> Lab Data Attestation: I reviewed the patient's lab results. Result diagrams: 05/23/20 06:10 05/23/20 06:10 Labs: Lab Results 05/23/20 05/23/20 05/23/20 Range/Units 06:10 06:10 06:10 WBC 12.1 H (4.5-11.0) X10^3/uL RBC 4.28 (4.0-5.2) X10^6/uL Hgb 13.7 (12.0-16.0) g/dL Hct 40.7 (36-46) % MCV 95.1 (80-100) fL MCH 31.9 (26-34) PG MCHC 33.5 (30-36) % RDW 13.1 (11.6-14.8) % Plt Count 153 (150-400) X10^3/uL Neut % (Auto) 71.8 (50-75) % Lymph % (Auto) 18.7 L (25-40) % Brantley % (Auto) 8.3 (3-14) % Eos % (Auto) 1.0 L (2-4) % Baso % (Auto) 0.2 (0-2) % Neut # (Auto) 8700 H (7979-2772) /uL Lymph # (Auto) 2300 (5215-0908) /uL Brantley # (Auto) 1000 H (0-900) /uL Eos # (Auto) 100 (0-450) /uL Baso # (Auto) 0 (0-100) /uL PT 11.6 (10.1-12.7) SECONDS INR 1.0 (0.9-1.3) APTT 26 L (26.4-36.2) SECONDS D-Dimer 430 H (<230) ng/mL Sodium 134 L (137-145) mmol/L Potassium 3.7 (3.4-5.1) mmol/L Chloride 103 (98-107) mmol/L Carbon Dioxide 25 (22-32) mmol/L BUN 4 L (7-17) mg/dL Creatinine 0.55 (0.52-1.04) mg/dL Estimated GFR > 60.0 (>60) mL/min BUN/Creatinine Ratio 7.3 (6-22) Glucose 123 H (70-100) mg/dL Calcium 9.7 (8.4-10.2) mg/dL Total Bilirubin 0.3 (0.2-1.3) mg/dL AST 25 (14-36) IU/L ALT 16 (<35) IU/L Alkaline Phosphatase 108 (38-126) U/L Total Creatine Kinase 58 (30-135) U/L CK-MB (CK-2) TNP CK-MB (CK-2) Rel Index TNP Troponin I < 0.012 (0.01-0.034) ng/mL Total Protein 7.2 (6.3-8.2) g/dL Albumin 3.9 (3.5-5.0) g/dL Globulin 3.3 (1.7-4.1) g/dL Albumin/Globulin Ratio 1.2 (1.0-2.8) Lipase 50 (23-300) U/L SARS-CoV-2 (PCR) (Negative) 05/23/20 Range/Units 07:05 WBC (4.5-11.0) X10^3/uL RBC (4.0-5.2) X10^6/uL Hgb (12.0-16.0) g/dL Hct (36-46) % MCV (80-100) fL MCH (26-34) PG MCHC (30-36) % RDW (11.6-14.8) % Plt Count (150-400) X10^3/uL Neut % (Auto) (50-75) % Lymph % (Auto) (25-40) % Brantley % (Auto) (3-14) % Eos % (Auto) (2-4) % Baso % (Auto) (0-2) % Neut # (Auto) (2957-5041) /uL Lymph # (Auto) (9838-8111) /uL Brantley # (Auto) (0-900) /uL Eos # (Auto) (0-450) /uL Baso # (Auto) (0-100) /uL PT (10.1-12.7) SECONDS INR (0.9-1.3) APTT (26.4-36.2) SECONDS D-Dimer (<230) ng/mL Sodium (137-145) mmol/L Potassium (3.4-5.1) mmol/L Chloride (98-107) mmol/L Carbon Dioxide (22-32) mmol/L BUN (7-17) mg/dL Creatinine (0.52-1.04) mg/dL Estimated GFR (>60) mL/min BUN/Creatinine Ratio (6-22) Glucose (70-100) mg/dL Calcium (8.4-10.2) mg/dL Total Bilirubin (0.2-1.3) mg/dL AST (14-36) IU/L ALT (<35) IU/L Alkaline Phosphatase (38-126) U/L Total Creatine Kinase (30-135) U/L CK-MB (CK-2) CK-MB (CK-2) Rel Index Troponin I (0.01-0.034) ng/mL Total Protein (6.3-8.2) g/dL Albumin (3.5-5.0) g/dL Globulin (1.7-4.1) g/dL Albumin/Globulin Ratio (1.0-2.8) Lipase (23-300) U/L SARS-CoV-2 (PCR) Negative (Negative) ECG Data Attestation: I personally reviewed and interpreted this ECG as follows: Prior ECG tracings: not available for review Interpretation: Sinus tachycardia, rate of 102, pr of 124, qrs of 88, qtc of 450. Non specific change. MDM Narrative Medical decision making narrative: Patient signed out to Dr. Herron while pending imaging results and covid swab. Discussed concerns for asthma exacerbation in , pe, cardiac involvement. Patient was seen in center initially and fetus was evaluated and cleared to come to ER. <Nik Herron, DO - Last Filed: 05/23/20 10:12> Lab Data Attestation: I reviewed the patient's lab results. Labs: Lab Results 05/23/20 05/23/20 05/23/20 Range/Units 06:10 06:10 06:10 WBC 12.1 H (4.5-11.0) X10^3/uL RBC 4.28 (4.0-5.2) X10^6/uL Hgb 13.7 (12.0-16.0) g/dL Hct 40.7 (36-46) % MCV 95.1 (80-100) fL MCH 31.9 (26-34) PG MCHC 33.5 (30-36) % RDW 13.1 (11.6-14.8) % Plt Count 153 (150-400) X10^3/uL Neut % (Auto) 71.8 (50-75) % Lymph % (Auto) 18.7 L (25-40) % Brantley % (Auto) 8.3 (3-14) % Eos % (Auto) 1.0 L (2-4) % Baso % (Auto) 0.2 (0-2) % Neut # (Auto) 8700 H (4954-7105) /uL Lymph # (Auto) 2300 (7573-1358) /uL Brantley # (Auto) 1000 H (0-900) /uL Eos # (Auto) 100 (0-450) /uL Baso # (Auto) 0 (0-100) /uL PT 11.6 (10.1-12.7) SECONDS INR 1.0 (0.9-1.3) APTT 26 L (26.4-36.2) SECONDS D-Dimer 430 H (<230) ng/mL Sodium 134 L (137-145) mmol/L Potassium 3.7 (3.4-5.1) mmol/L Chloride 103 (98-107) mmol/L Carbon Dioxide 25 (22-32) mmol/L BUN 4 L (7-17) mg/dL Creatinine 0.55 (0.52-1.04) mg/dL Estimated GFR > 60.0 (>60) mL/min BUN/Creatinine Ratio 7.3 (6-22) Glucose 123 H (70-100) mg/dL Calcium 9.7 (8.4-10.2) mg/dL Total Bilirubin 0.3 (0.2-1.3) mg/dL AST 25 (14-36) IU/L ALT 16 (<35) IU/L Alkaline Phosphatase 108 (38-126) U/L Total Creatine Kinase 58 (30-135) U/L CK-MB (CK-2) TNP CK-MB (CK-2) Rel Index TNP Troponin I < 0.012 (0.01-0.034) ng/mL Total Protein 7.2 (6.3-8.2) g/dL Albumin 3.9 (3.5-5.0) g/dL Globulin 3.3 (1.7-4.1) g/dL Albumin/Globulin Ratio 1.2 (1.0-2.8) Lipase 50 (23-300) U/L SARS-CoV-2 (PCR) (Negative) 05/23/20 Range/Units 07:05 WBC (4.5-11.0) X10^3/uL RBC (4.0-5.2) X10^6/uL Hgb (12.0-16.0) g/dL Hct (36-46) % MCV (80-100) fL MCH (26-34) PG MCHC (30-36) % RDW (11.6-14.8) % Plt Count (150-400) X10^3/uL Neut % (Auto) (50-75) % Lymph % (Auto) (25-40) % Brantley % (Auto) (3-14) % Eos % (Auto) (2-4) % Baso % (Auto) (0-2) % Neut # (Auto) (0296-2252) /uL Lymph # (Auto) (9912-5753) /uL Brantley # (Auto) (0-900) /uL Eos # (Auto) (0-450) /uL Baso # (Auto) (0-100) /uL PT (10.1-12.7) SECONDS INR (0.9-1.3) APTT (26.4-36.2) SECONDS D-Dimer (<230) ng/mL Sodium (137-145) mmol/L Potassium (3.4-5.1) mmol/L Chloride (98-107) mmol/L Carbon Dioxide (22-32) mmol/L BUN (7-17) mg/dL Creatinine (0.52-1.04) mg/dL Estimated GFR (>60) mL/min BUN/Creatinine Ratio (6-22) Glucose (70-100) mg/dL Calcium (8.4-10.2) mg/dL Total Bilirubin (0.2-1.3) mg/dL AST (14-36) IU/L ALT (<35) IU/L Alkaline Phosphatase (38-126) U/L Total Creatine Kinase (30-135) U/L CK-MB (CK-2) CK-MB (CK-2) Rel Index Troponin I (0.01-0.034) ng/mL Total Protein (6.3-8.2) g/dL Albumin (3.5-5.0) g/dL Globulin (1.7-4.1) g/dL Albumin/Globulin Ratio (1.0-2.8) Lipase (23-300) U/L SARS-CoV-2 (PCR) Negative (Negative) Imaging Data US - DVT: Radiologist's Impression: [address] [id number] ReportSigned Patient: Arleen Higgins R#: [id number]: 1985Acct:[id number]/Sex: 34 / FDate of Service: 05/23/20Loc: EDAccession Number: [id number] Procedure: US periph venous low extrem bi Ordering Provider: Joyce Daly D.O. PROCEDURE: US PERIPH VENOUS LOW EXTREM BI INDICATIONS: CHEST PAIN TECHNIQUE: Real-time imaging, as well as color and pulse Doppler interrogation, were performed of the deep veins of both legs from the inguinal ligament to the popliteal fossa. COMPARISON: None. FINDINGS: Right: The common femoral, femoral and popliteal veins are normally compressible, and free of intraluminal thrombus. Color and pulse Doppler demonstrate normal phasic intravascular flow. There is normal augmentation response to distal compression maneuver. Left: The common femoral, femoral and popliteal veins are normally compressible, and free of intraluminal thrombus. Color and pulse Doppler demonstrate normal phasic intravascular flow. There is normal augmentation response to distal compression maneuver. IMPRESSION: No sonographic evidence of deep venous thrombosis in the bilateral lower extremities. Dictated by: Sharif Foote M.D. on 05/23/2020 at 8:07 Approved by: Sharif Foote M.D. on 05/23/2020 at 8:08 Chest x-ray: Radiologist's Impression: [address] [id number] ReportSigned Patient: Arleen Higgins RMR#: [id number]: 1985Acct:[id number]/Sex: 34 / FDate of Service: 05/23/20Loc: EDAccession Number: [id number] Procedure: XR chest 1V Ordering Provider: Joyce Daly D.O. PROCEDURE: XR CHEST 1V INDICATIONS: shortness of breath, right sided chest pain, TECHNIQUE: One view of the chest was acquired. COMPARISON: None. FINDINGS: Surgical changes and devices: Thoracic spinal fixation hardware is seen and there is dextroconvex curvature of the midthoracic spine. Lungs and pleura: Mildly low lung volumes bilaterally. Slightly prominent perihilar interstitial markings are seen bilaterally without a focal airspace opacity. No pleural effusion or pneumothorax. Mediastinum: Mediastinal contours appear normal. Heart size is normal. Bones and chest wall: No suspicious bony lesions. Overlying soft tissues appear unremarkable. IMPRESSION: Mildly prominent interstitial markings are seen in both lungs, which are nonspecific and may be related to low lung volumes, mild volume overload, and/or an infectious or inflammatory interstitial process. There is no significant discrepancy when compared to the overnight Teleradiology report. Dictated by: Sharif Foote M.D. on 05/23/2020 at 8:03 Approved by: Sharif Foote M.D. on 05/23/2020 at 8:07 [facility] Narrative Medical decision making narrative: Dr herron: Received turned over from Dr daly. Reviewed patient's history and physical. Review patient's labs and workup up to this point. Performed my own independent examination. Patient's EKG is unremarkable. Chest x-ray shows no definitive diagnosis for her symptoms today. Her ultrasound of lower extremities showed no signs of DVT. Had a long discussion with her regarding her symptoms. We did discuss the concerns about pulmonary embolism. We did discuss CT scans of the risks and benefits of this to include finding the pulmonary embolism which would result in treatment with anticoagulation. We discussed the risks with this. We also discuss radiation exposure to both her and her child. We also discussed the risks of not doing the CT scan. After this discussion the patient opted to not have the CT scan performed. I do have a low suspicion for pulmonary embolism given her presentation. She has been vomiting. He suspect this is musculoskeletal. She is going to use Tylenol at home. She is not having any cramping or vaginal bleeding. She is afebrile. Will have her keep all of her scheduled OB appointments. She was given strict return precautions. She expressed understanding and agreement. Discharge Plan Departure Patient Disposition: Home Clinical Impression: , Right-sided chest wall pain Activity Restrictions/Additional Instructions: The CT scan today showed no signs of pulmonary embolism or other lung issues. Continue all of your medications as directed. Keep all of your scheduled medical ointments. You can take Tylenol for any discomfort like we discussed. Return to the emergency department for any new or worsening symptoms Prescriptions: No Action prenat.vits,eber,usz-pcjs-eulrb Tablet 1 tab PO DAILY RF: 0 folic acid 800 mcg tablet 0.8 mg PO DAILY RF: 0 cholecalciferol (vitamin D3) 50 mcg (2,000 unit) capsule 50 mcg PO DAILY RF: 0 budesonide 90 mcg/actuation aerosol powdr breath activated 1 inh inhalation DAILY Qty: 1 RF: 2 ondansetron 4 mg tablet,disintegrating 4 mg PO Q8H PRN (Reason: nausea and vomiting) Qty: 20 RF: 2 Double Electric Breast Pump 1 ea topical .prn Qty: 1 RF: 0 calcium carbonate-mag hydroxid 412-80 mg tablet,chewable PO RF: 0 acetaminophen [Tylenol] 325 mg capsule 325 mg PO ONCE PRNRF: 0 albuterol sulfate 90 mcg/actuation HFA aerosol inhaler 2 puff inhalation Q4-6H PRN (Reason: shortness of breath or wheezing) Qty: 18 RF: 3 cefuroxime axetil 250 mg tablet 250 mg PO BID Qty: 20 RF: 0 pantoprazole 20 mg tablet,delayed release (DR/EC) 20 mg PO DAILY Qty: 30 RF: 2 Referrals: Boo Oliver ARNP [Primary Care Provider] -
[2020-05-23 06:29] LABS: Add Manual Diff / Slide Review NO; Basophils Absolute Auto 0 /uL (0-100); Basophils Percent Auto 0.2 % (0-2); Eosinophils Absolute Auto 100 /uL (0-450); Hematocrit 40.7 % (36-46); Hemoglobin 13.7 g/dL (12.0-16.0); Lymphocytes Absolute Auto 2300 /uL (1100-4500); Lymphocytes Percent Auto 18.7 % (25-40); Mean Corpuscular HGB Conc 33.5 % (30-36); Mean Corpuscular Hemoglobin 31.9 PG (26-34); Mean Corpuscular Volume 95.1 fL (80-100); Monocytes Absolute Auto 1000 /uL (0-900); Monocytes Percent Auto 8.3 % (3-14); Neutrophils Absolute Auto 8700 /uL (1500-7000); Neutrophils Percent Auto 71.8 % (50-75); Platelet Count 153 X10^3/uL (150-400); Red Blood Cell Count 4.28 X10^6/uL (4.0-5.2); Red Cell Distribution Width 13.1 % (11.6-14.8); White Blood Cell Count 12.1 X10^3/uL (4.5-11.0)
[2020-05-23 06:30] LABS: Prothrombin Time 11.6 SECONDS (10.1-12.7)
[2020-05-23] MEDS: SODIUM CHLORIDE 0.9% 1,000 ML 1000 ML IV (06:32)
[2020-05-23] MEDS: ACETAMINOPHEN 325 MG TABLET 650 MG PO (06:32)
[2020-05-23 06:33] LABS: PTT Partial Thromboplastin Tim 26 SECONDS (26.4-36.2)
[2020-05-23 06:35] LABS: Alanine Aminotransferase 16 IU/L (<35); Albumin 3.9 g/dL (3.5-5.0); Albumin Globulin Ratio 1.2 (1.0-2.8); Alkaline Phosphatase 108 U/L (38-126); Aspartate Aminotransferase 25 IU/L (14-36); BUN Creatinine Ratio 7.3 (6-22); Bilirubin Total 0.3 mg/dL (0.2-1.3); Blood Urea Nitrogen 4 mg/dL (7-17); Calcium 9.7 mg/dL (8.4-10.2); Carbon Dioxide 25 mmol/L (22-32); Chloride 103 mmol/L (98-107); Creatine Kinase 58 U/L (30-135); Estimated Glomerular Filt Rate > 60.0 mL/min (>60); Globulin 3.3 g/dL (1.7-4.1); Glucose 123 mg/dL (70-100); HEMOLYSIS < 15 (0-50); Lipase 50 U/L (23-300); Potassium 3.7 mmol/L (3.4-5.1); Sodium 134 mmol/L (137-145); Total Protein 7.2 g/dL (6.3-8.2)
[2020-05-23] MEDS: PANTOPRAZOLE 40 MG VIAL IV (06:35)
[2020-05-23 06:36] LABS: D Dimer 430 ng/mL (<230)
[2020-05-23 06:47] LABS: Troponin I < 0.012 ng/mL (0.01-0.034)
--- NOTE | 2020-05-23 06:57 | DI.RAD.S_ITS ---
PROCEDURE: XR CHEST 1V INDICATIONS: shortness of breath, right sided chest pain, TECHNIQUE: One view of the chest was acquired. COMPARISON: None. FINDINGS: Surgical changes and devices: Thoracic spinal fixation hardware is seen and there is dextroconvex curvature of the midthoracic spine. Lungs and pleura: Mildly low lung volumes bilaterally. Slightly prominent perihilar interstitial markings are seen bilaterally without a focal airspace opacity. No pleural effusion or pneumothorax. Mediastinum: Mediastinal contours appear normal. Heart size is normal. Bones and chest wall: No suspicious bony lesions. Overlying soft tissues appear unremarkable. IMPRESSION: Mildly prominent interstitial markings are seen in both lungs, which are nonspecific and may be related to low lung volumes, mild volume overload, and/or an infectious or inflammatory interstitial process. There is no significant discrepancy when compared to the overnight Teleradiology report. Dictated by: Sharif Foote M.D. on 05/23/2020 at 8:03 Approved by: Sharif Foote M.D. on 05/23/2020 at 8:07
[2020-05-23 07:30] LABS: COVID19 -Nasal RAPID Negative (Negative)
--- NOTE | 2020-05-23 08:57 | DI.CT.S_ITS ---
PROCEDURE: CT ANGIO CHEST PE PROTOCOL INDICATIONS: , right-sided chest pain, eval for PE TECHNIQUE: After the administration of intravenous contrast, 2 mm thick sections acquired from the pulmonary apices to the posterior costophrenic angles. 3-dimensional maximum intensity projection (MIP) coronal and sagittal reformats were then acquired through the thorax. For radiation dose reduction, the following was used: automated exposure control, adjustment of mA and/or kV according to patient size. COMPARISON: None. FINDINGS: Image quality: Distal branches are suboptimally opacified for evaluation. Pulmonary arteries: Pulmonary arteries are normal in size, and demonstrate no intraluminal filling defects to suggest central pulmonary embolism. Lungs and pleura: Lungs are clear. No pleural effusions or pneumothorax. Central and peripheral airways are patent. Mediastinum: Heart size is normal, with trace pericardial effusion. No mediastinal or hilar adenopathy. Thoracic aorta is normal in caliber and enhancement. Esophagus demonstrates mild distal thickening with hiatal hernia. Bones and chest wall: No suspicious bony lesions. Ribs and thoracic spine appear intact throughout. Thyroid gland demonstrates bilateral low attenuation foci. No axillary or supraclavicular adenopathy. Abdomen: Visualized upper abdominal solid organs appear normal in the early arterial phase of enhancement. IMPRESSION: 1. No central pulmonary embolism. Distal branches are suboptimally evaluated secondary to contrast injection timing. 2. No consolidations or effusions. 3. Mild distal esophageal thickening with hiatal hernia. Thickening could be secondary to esophagitis. However, recommend clinical correlation and further evaluation with upper GI or endoscopy as indicated. Dictated by: Adrienne Joseph M.D. on 05/23/2020 at 9:14 Approved by: Adrienne Joseph M.D. on 05/23/2020 at 9:59
== END 2020-05-23 10:22 | disposition home or self-care (01) ==
PROVIDERS: Emergency Medicine; Emergency Provider Emergency Medicine; PCP Registered Nurse
DX: O26.893 Other specified pregnancy related conditions, third trimester (principal); R07.81 Pleurodynia; R06.02 Shortness of breath; O99.213 Obesity complicating pregnancy, third trimester; Z3A.32 32 weeks gestation of pregnancy
CPT/HCPCS: 36415; 59025; 71045; 71275; 80053; 82550; 83690; 84484; 85025; 85379; 85610; 85730; 87635; 93005; 93970; 96361; 96374; 99284; C9803; G0378; C9113; G0379; Q9967

== ENCOUNTER → 2020-06-22 16:26 | Outpatient (CLI) | payer OTHER, MEDICAID, SELFPAY ==
[2020-06-23 16:03] LABS: Strep Grp B PCR NEG for Grp B Strep
== END ==
PROVIDERS: PCP Registered Nurse; Visit Provider Obstetrics & Gynecology
DX: Z34.83 Encounter for supervision of other normal pregnancy, third trimester (principal); Z3A.36 36 weeks gestation of pregnancy
CPT/HCPCS: 87653

== ENCOUNTER 2020-07-20 16:35 | Observation (INO) | payer OTHER, MEDICAID, SELFPAY ==
[2020-07-20 18:16] LABS: Creatinine Urine Random 61.4 mg/dL; Protein (Total) Urine Random 18 mg/dL (0-12); Protein Creatinine Ratio Urine 0.29 GRAM/24H
[2020-07-20 18:27] LABS: Add Manual Diff / Slide Review NO; Basophils Absolute Auto 100 /uL (0-100); Basophils Percent Auto 0.4 % (0-2); Eosinophils Absolute Auto 100 /uL (0-450); Eosinophils Percent Auto 1.1 % (2-4); Hematocrit 36.6 % (36-46); Hemoglobin 12.6 g/dL (12.0-16.0); Lymphocytes Absolute Auto 2100 /uL (1100-4500); Lymphocytes Percent Auto 16.7 % (25-40); Mean Corpuscular HGB Conc 34.4 % (30-36); Mean Corpuscular Hemoglobin 32.1 PG (26-34); Mean Corpuscular Volume 93.4 fL (80-100); Monocytes Absolute Auto 900 /uL (0-900); Neutrophils Absolute Auto 9300 /uL (1500-7000); Neutrophils Percent Auto 74.8 % (50-75); Platelet Count 108 X10^3/uL (150-400); Red Blood Cell Count 3.93 X10^6/uL (4.0-5.2); Red Cell Distribution Width 13.8 % (11.6-14.8); White Blood Cell Count 12.5 X10^3/uL (4.5-11.0)
[2020-07-20 18:36] LABS: Alanine Aminotransferase 14 IU/L (<35); Albumin 3.5 g/dL (3.5-5.0); Albumin Globulin Ratio 1.1 (1.0-2.8); Alkaline Phosphatase 160 U/L (38-126); Aspartate Aminotransferase 28 IU/L (14-36); BUN Creatinine Ratio 13.8 (6-22); Bilirubin Total 0.3 mg/dL (0.2-1.3); Blood Urea Nitrogen 8 mg/dL (7-17); Calcium 9.1 mg/dL (8.4-10.2); Carbon Dioxide 20 mmol/L (22-32); Chloride 104 mmol/L (98-107); Estimated Glomerular Filt Rate > 60.0 mL/min (>60); Globulin 3.1 g/dL (1.7-4.1); Glucose 78 mg/dL (70-100); HEMOLYSIS < 15 (0-50); Lactate Dehydrogenase 373 U/L (313-618); Potassium 3.8 mmol/L (3.4-5.1); Sodium 133 mmol/L (137-145); Total Protein 6.6 g/dL (6.3-8.2)
[2020-07-20 20:06] VITALS: BP 131/78; PULSE 90
[2020-07-20] MEDS: LABETALOL 100 MG TABLET PO (20:06)
[2020-07-20 20:36] LABS: COVID19 - ADMIT (NP swab/PCR) Negative (Negative)
[2020-07-21 00:28] LABS: Add Manual Diff / Slide Review NO; Basophils Absolute Auto 0 /uL (0-100); Basophils Percent Auto 0.2 % (0-2); Eosinophils Absolute Auto 100 /uL (0-450); Eosinophils Percent Auto 0.6 % (2-4); Hemoglobin 11.9 g/dL (12.0-16.0); Lymphocytes Absolute Auto 2000 /uL (1100-4500); Mean Corpuscular HGB Conc 33.8 % (30-36); Mean Corpuscular Hemoglobin 31.9 PG (26-34); Mean Corpuscular Volume 94.3 fL (80-100); Monocytes Absolute Auto 900 /uL (0-900); Monocytes Percent Auto 7.2 % (3-14); Neutrophils Absolute Auto 9600 /uL (1500-7000); Platelet Count 109 X10^3/uL (150-400); Red Blood Cell Count 3.71 X10^6/uL (4.0-5.2); Red Cell Distribution Width 13.7 % (11.6-14.8); White Blood Cell Count 12.7 X10^3/uL (4.5-11.0)
[2020-07-21 00:35] LABS: Alanine Aminotransferase 15 IU/L (<35); Albumin 3.2 g/dL (3.5-5.0); Albumin Globulin Ratio 1.1 (1.0-2.8); Alkaline Phosphatase 142 U/L (38-126); Aspartate Aminotransferase 27 IU/L (14-36); BUN Creatinine Ratio 13.3 (6-22); Bilirubin Total 0.2 mg/dL (0.2-1.3); Blood Urea Nitrogen 8 mg/dL (7-17); Calcium 8.8 mg/dL (8.4-10.2); Carbon Dioxide 23 mmol/L (22-32); Chloride 104 mmol/L (98-107); Estimated Glomerular Filt Rate > 60.0 mL/min (>60); Globulin 2.9 g/dL (1.7-4.1); Glucose 125 mg/dL (70-100); HEMOLYSIS < 15 (0-50); Potassium 3.5 mmol/L (3.4-5.1); Sodium 134 mmol/L (137-145); Total Protein 6.1 g/dL (6.3-8.2); Uric Acid 4.5 mg/dL (2.5-6.2)
--- NOTE | 2020-07-21 07:26 | PM.OBHP.1 ---
OB HPI Date/Time Date of admission: 07/20/20 Date Patient Seen: 07/20/20 Time Patient Seen: 16:30 History of Present Condition Chief complaint: EVAL OF LABOR : 6 Para: 1 Estimated Date of Delivery: 07/18/20 Estimated Gestational Age (weeks): 40 Narrative: Arleen Higgins is a 34 year old [id number] @40+2 by 1st trimester US, presenting for postdates testing and found to have elevated BPs. Patient reports feeling well with no dFM, contractions, VB, or LOF, and denies BELLO, visual changes, RUQ pain, chest pain, malaise, increased swelling, or any additional symptoms. Patient has had a complicated by asthma and by persistent musculoskeletal pain, which has been effectively managed by OMT performed by Dr. Moncada. She has a history of genital herpes and has been on suppressive valtrex since 36 weeks, a history of a LEEP for CIN3, and of multiple early SABs and two elective abortions. History of Present Dating criteria: LMP confirmed by 1st trimester US Ultrasounds: normal mid trimester US Obstetrical complications: other (elevated BPs not meeting diagnostic criteria for gHTN) Medical complications: respiratory (worsening asthma) Preadmission Labs Blood type: O (+) positive -: Antibody screen: negative, GBS status: negative, HBsAG: negative, HIV: negative and RPR/VDLR: negative -: Rubella: immune and Varicella: immune PAP: Normal Cell-free DNA: wnl, MSAFP wnl Urine: no growth 1 hr GTT: 123 Prior (ies) History: G1: 04/21/05, 16 weeks, elective , [place] G2: 04/21/06, 5 weeks, SAB, [place] G3: 07/20/10, 12 weeks, elective , [place] G4: 04/21/14, 8 weeks SAB, [place] G5: 06/20/15, 4 weeks, SAB, [place] Evaluation Evaluation Baseline heart rate: 125 Variability: Moderate (11-25) monitor accelerations: Present monitor decelerations: Absent Contraction Frequency (minutes): 15 Category of Tracing: Reactive Status: Category l Cervical dilation (cm): 1 Cervical effacement (%): 50 station: -2 Laboratory results: Laboratory Tests 07/20/20 07/20/20 07/20/20 17:50 18:20 18:20 WBC 12.5 H RBC 3.93 L Hgb 12.6 Hct 36.6 MCV 93.4 MCH 32.1 MCHC 34.4 RDW 13.8 Plt Count 108 L Neut % (Auto) 74.8 Lymph % (Auto) 16.7 L [place] % (Auto) 7.0 Eos % (Auto) 1.1 L Baso % (Auto) 0.4 Neut # (Auto) 9300 H Lymph # (Auto) 2100 [place] # (Auto) 900 Eos # (Auto) 100 Baso # (Auto) 100 Sodium 133 L Potassium 3.8 Chloride 104 Carbon Dioxide 20 L BUN 8 Creatinine 0.58 Estimated GFR > 60.0 BUN/Creatinine Ratio 13.8 Glucose 78 Uric Acid 4.0 Calcium 9.1 Total Bilirubin 0.3 AST 28 ALT 14 Alkaline Phosphatase 160 H Lactate Dehydrogenase 373 Total Protein 6.6 Albumin 3.5 Globulin 3.1 Albumin/Globulin Ratio 1.1 U Random Total Protein 18 H Urine Creatinine 61.4 Protein/Creatinin Ratio 0.29 SARS-CoV-2 (PCR) Blood Type Antibody Screen 07/20/20 07/20/20 07/21/20 18:50 19:20 00:15 WBC 12.7 H RBC 3.71 L Hgb 11.9 L Hct 35.0 L MCV 94.3 MCH 31.9 MCHC 33.8 RDW 13.7 Plt Count 109 L Neut % (Auto) 76.0 H Lymph % (Auto) 16.0 L [place] % (Auto) 7.2 Eos % (Auto) 0.6 L Baso % (Auto) 0.2 Neut # (Auto) 9600 H Lymph # (Auto) 2000 [place] # (Auto) 900 Eos # (Auto) 100 Baso # (Auto) 0 Sodium Potassium Chloride Carbon Dioxide BUN Creatinine Estimated GFR BUN/Creatinine Ratio Glucose Uric Acid Calcium Total Bilirubin AST ALT Alkaline Phosphatase Lactate Dehydrogenase Total Protein Albumin Globulin Albumin/Globulin Ratio U Random Total Protein Urine Creatinine Protein/Creatinin Ratio SARS-CoV-2 (PCR) Negative Blood Type O Positive Antibody Screen Negative 07/21/20 07/21/20 00:15 00:15 WBC RBC Hgb Hct MCV MCH MCHC RDW Plt Count Neut % (Auto) Lymph % (Auto) [place] % (Auto) Eos % (Auto) Baso % (Auto) Neut # (Auto) Lymph # (Auto) [place] # (Auto) Eos # (Auto) Baso # (Auto) Sodium 134 L Potassium 3.5 Chloride 104 Carbon Dioxide 23 BUN 8 Creatinine 0.60 Estimated GFR > 60.0 BUN/Creatinine Ratio 13.3 Glucose 125 H Uric Acid 4.5 Calcium 8.8 Total Bilirubin 0.2 AST 27 ALT 15 Alkaline Phosphatase 142 H Lactate Dehydrogenase Total Protein 6.1 L Albumin 3.2 L Globulin 2.9 Albumin/Globulin Ratio 1.1 U Random Total Protein Urine Creatinine Protein/Creatinin Ratio SARS-CoV-2 (PCR) Blood Type Antibody Screen Comments: EFW 8#8 [facility] Medical History Acne (~2002) Acute pain of right shoulder Asthma Bilateral carpal tunnel syndrome Cervical somatic dysfunction DEVI III (cervical intraepithelial neoplasia grade III) with severe dysplasia (~09/06/18) Heart burn 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 Father Medication administered in error Grandfather Hepatic sclerosis Grandmother No problems noted. 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 Smoking Status: Never smoker Tobacco: How many years used: 15 second hand exposure: No alcohol intake: former substance use type: does not use Meds Home Medications and Allergies Home Medications Medication Instructions Recorded Confirmed Type calcium carbonate-magnesium tab PO 11/24/19 07/11/20 History hydroxide 412 mg-80 mg chewable tablet cholecalciferol (vitamin D3) 50 50 mcg PO DAILY 11/24/19 07/11/20 History mcg (2,000 unit) capsule folic acid 800 mcg tablet 0.8 mg PO DAILY 11/24/19 07/11/20 History prenat.vits,eber,ioq-qjzm-tubzq 1 tab PO DAILY 11/24/19 07/11/20 History acetaminophen 325 mg capsule 325 mg PO ONCE PRN 03/27/20 07/11/20 History albuterol sulfate 90 mcg/actuation 2 puff INHALATION Q4-6H PRN #18 g 03/27/20 07/11/20 Rx aerosol inhaler budesonide 90 mcg/actuation breath 1 inh INHALATION DAILY #1 ea 03/28/20 07/11/20 Rx activated powder inhaler Double Electric Breast Pump 1 ea TOPICAL .prn #1 ea 05/01/20 07/11/20 Rx cefuroxime axetil 250 mg tablet 250 mg PO BID #20 tab 05/10/20 07/11/20 Rx famotidine 20 mg tablet 20 mg PO BID #180 tab 06/09/20 07/11/20 Rx ondansetron 4 mg disintegrating 4 mg PO Q8H PRN #20 tab 07/19/20 Rx tablet pantoprazole 20 mg tablet,delayed 20 mg PO DAILY #30 tab 07/19/20 Rx release valacyclovir 500 mg tablet 500 mg PO .COMPLEX #60 tab 07/19/20 Rx labetalol 100 mg PO BID #30 tab 07/21/20 Rx Allergies Allergy/AdvReac Type Severity Reaction Status Date / Time mint Allergy Severe Lips swell Verified 07/21/20 02:56 up Review of Systems Constitutional Constitutional: Reports system reviewed and no additional complaints, except as documented Cardiovascular Cardiovascular: Reports system reviewed and no additional complaints, except as documented Respiratory Respiratory: Reports system reviewed and no additional complaints, except as documented Gastrointestinal Gastrointestinal: Reports system reviewed and no additional complaints, except as documented Genitourinary Genitourinary: Reports system reviewed and no additional complaints, except as documented Musculoskeletal Musculoskeletal: Reports system reviewed and no additional complaints, except as documented Neurologic Neurologic: Reports system reviewed and no additional complaints, except as documented Hematologic/Lymphatic Hematologic/Lymphatic: Reports system reviewed and no additional complaints, except as documented Exam Narrative Exam Narrative: Patient well appearing, resting in bed eating breakfast. Reports copious movement overnight. Const General: cooperative, healthy appearing and comfortable Resp Effort & Inspection: normal respiratory effort Auscultation: clear to auscultation bilaterally Cardio Rate: regular rate Rhythm: regular rhythm GI Palpation: soft and No tender Extrem General: normal to inspection (LE trace edema, 1+ DTRs) Objective Labs Result Diagrams: 07/21/20 07:35 07/21/20 07:35 Labs: Laboratory Results - last 24 hr 07/20/20 07/20/20 07/20/20 17:50 18:20 18:20 WBC 12.5 H RBC 3.93 L Hgb 12.6 Hct 36.6 MCV 93.4 MCH 32.1 MCHC 34.4 RDW 13.8 Plt Count 108 L Neut % (Auto) 74.8 Lymph % (Auto) 16.7 L [place] % (Auto) 7.0 Eos % (Auto) 1.1 L Baso % (Auto) 0.4 Neut # (Auto) 9300 H Lymph # (Auto) 2100 [place] # (Auto) 900 Eos # (Auto) 100 Baso # (Auto) 100 Sodium 133 L Potassium 3.8 Chloride 104 Carbon Dioxide 20 L BUN 8 Creatinine 0.58 Estimated GFR > 60.0 BUN/Creatinine Ratio 13.8 Glucose 78 Uric Acid 4.0 Calcium 9.1 Total Bilirubin 0.3 AST 28 ALT 14 Alkaline Phosphatase 160 H Lactate Dehydrogenase 373 Total Protein 6.6 Albumin 3.5 Globulin 3.1 Albumin/Globulin Ratio 1.1 U Random Total Protein 18 H Urine Creatinine 61.4 Protein/Creatinin Ratio 0.29 SARS-CoV-2 (PCR) Blood Type Antibody Screen 07/20/20 07/20/20 07/21/20 18:50 19:20 00:15 WBC 12.7 H RBC 3.71 L Hgb 11.9 L Hct 35.0 L MCV 94.3 MCH 31.9 MCHC 33.8 RDW 13.7 Plt Count 109 L Neut % (Auto) 76.0 H Lymph % (Auto) 16.0 L [place] % (Auto) 7.2 Eos % (Auto) 0.6 L Baso % (Auto) 0.2 Neut # (Auto) 9600 H Lymph # (Auto) 2000 [place] # (Auto) 900 Eos # (Auto) 100 Baso # (Auto) 0 Sodium Potassium Chloride Carbon Dioxide BUN Creatinine Estimated GFR BUN/Creatinine Ratio Glucose Uric Acid Calcium Total Bilirubin AST ALT Alkaline Phosphatase Lactate Dehydrogenase Total Protein Albumin Globulin Albumin/Globulin Ratio U Random Total Protein Urine Creatinine Protein/Creatinin Ratio SARS-CoV-2 (PCR) Negative Blood Type O Positive Antibody Screen Negative 07/21/20 07/21/20 00:15 00:15 WBC RBC Hgb Hct MCV MCH MCHC RDW Plt Count Neut % (Auto) Lymph % (Auto) [place] % (Auto) Eos % (Auto) Baso % (Auto) Neut # (Auto) Lymph # (Auto) [place] # (Auto) Eos # (Auto) Baso # (Auto) Sodium 134 L Potassium 3.5 Chloride 104 Carbon Dioxide 23 BUN 8 Creatinine 0.60 Estimated GFR > 60.0 BUN/Creatinine Ratio 13.3 Glucose 125 H Uric Acid 4.5 Calcium 8.8 Total Bilirubin 0.2 AST 27 ALT 15 Alkaline Phosphatase 142 H Lactate Dehydrogenase Total Protein 6.1 L Albumin 3.2 L Globulin 2.9 Albumin/Globulin Ratio 1.1 U Random Total Protein Urine Creatinine Protein/Creatinin Ratio SARS-CoV-2 (PCR) Blood Type Antibody Screen Assessment and Plan Assessment and Plan Assessment and Plan narrative: This patient presents for postdates testing, and while status was reassuring, maternal hypertension and low platelets though not below 100 were concerning for incipient PIH or HELLP syndrome. The patient's BPs improved significantly on a low dose of labetalol, labs remained stable overnight, and the patient's testing remain reassuring. The patient should be induced as soon as feasible, but the full and already overwhelmed conditions on the labor floor mean that her induction would not be able to take place until tomorrow. We discussed having the patient remain admitted for monitoring of vital signs, repeat labs, and wellbeing. We discussed the risk of progression to gestational hypertension, HELLP syndrome, or eclampsia. We discussed precautions for return, home blood pressure monitoring, and repeat NST and labs tomorrow AM in the center. We discussed the realistic timeline of induction based on conditions in center. The patient and her partner vocalized understanding of the risks of discharge, but strongly desire discharge home with close follow up and live within 5 minutes of the hospital. Precautions for return were again stressed, and she will return for repeat labs and NST tomorrow AM with plan to induce by the next night at the latest.
[2020-07-21 07:46] LABS: Add Manual Diff / Slide Review NO; Basophils Absolute Auto 100 /uL (0-100); Basophils Percent Auto 0.8 % (0-2); Eosinophils Absolute Auto 100 /uL (0-450); Eosinophils Percent Auto 1.2 % (2-4); Hematocrit 36.4 % (36-46); Hemoglobin 12.3 g/dL (12.0-16.0); Lymphocytes Absolute Auto 2100 /uL (1100-4500); Lymphocytes Percent Auto 18.9 % (25-40); Mean Corpuscular HGB Conc 33.9 % (30-36); Mean Corpuscular Hemoglobin 31.8 PG (26-34); Mean Corpuscular Volume 93.7 fL (80-100); Monocytes Absolute Auto 900 /uL (0-900); Monocytes Percent Auto 7.5 % (3-14); Neutrophils Absolute Auto 8100 /uL (1500-7000); Neutrophils Percent Auto 71.6 % (50-75); Platelet Count 121 X10^3/uL (150-400); Red Blood Cell Count 3.88 X10^6/uL (4.0-5.2); Red Cell Distribution Width 13.7 % (11.6-14.8); White Blood Cell Count 11.4 X10^3/uL (4.5-11.0)
[2020-07-21 07:59] LABS: Alanine Aminotransferase 14 IU/L (<35); Albumin 3.3 g/dL (3.5-5.0); Albumin Globulin Ratio 1.1 (1.0-2.8); Alkaline Phosphatase 140 U/L (38-126); Aspartate Aminotransferase 28 IU/L (14-36); BUN Creatinine Ratio 16.4 (6-22); Bilirubin Total 0.2 mg/dL (0.2-1.3); Blood Urea Nitrogen 9 mg/dL (7-17); Calcium 9.3 mg/dL (8.4-10.2); Carbon Dioxide 24 mmol/L (22-32); Chloride 106 mmol/L (98-107); Estimated Glomerular Filt Rate > 60.0 mL/min (>60); Globulin 2.9 g/dL (1.7-4.1); Glucose 87 mg/dL (70-100); HEMOLYSIS < 15 (0-50); Potassium 3.8 mmol/L (3.4-5.1); Sodium 135 mmol/L (137-145); Total Protein 6.2 g/dL (6.3-8.2); Uric Acid 4.4 mg/dL (2.5-6.2)
[2020-07-23 13:02] LABS: Lactate Dehydrogenase 399 U/L (313-618)
[2020-07-23 13:03] LABS: Lactate Dehydrogenase 404 U/L (313-618)
== END 2020-07-21 09:30 | disposition home or self-care (01) ==
PROVIDERS: Admitting Provider Obstetrics & Gynecology; PCP Registered Nurse; Referring Provider Obstetrics & Gynecology; Visit Provider Obstetrics & Gynecology
DX: O48.0 Post-term pregnancy (principal); Z3A.40 40 weeks gestation of pregnancy; R03.0 Elevated blood-pressure reading, without diagnosis of hypertension; Z20.822 Contact with and (suspected) exposure to COVID-19
CPT/HCPCS: 36415; 59025; 80053; 82570; 83615; 84156; 84550; 85025; 86850; 86900; 86901; 87635; G0378; G0379

== ENCOUNTER 2020-07-21 23:58 | Outpatient (CLI) | payer OTHER, MEDICAID, SELFPAY ==
[2020-07-22 00:49] LABS: Add Manual Diff / Slide Review NO; Basophils Absolute Auto 0 /uL (0-100); Basophils Percent Auto 0.3 % (0-2); Eosinophils Absolute Auto 100 /uL (0-450); Eosinophils Percent Auto 1.3 % (2-4); Hematocrit 34.8 % (36-46); Lymphocytes Absolute Auto 2300 /uL (1100-4500); Lymphocytes Percent Auto 20.5 % (25-40); Mean Corpuscular HGB Conc 34.5 % (30-36); Mean Corpuscular Hemoglobin 32.8 PG (26-34); Mean Corpuscular Volume 95.2 fL (80-100); Monocytes Absolute Auto 900 /uL (0-900); Monocytes Percent Auto 7.7 % (3-14); Neutrophils Absolute Auto 7800 /uL (1500-7000); Neutrophils Percent Auto 70.2 % (50-75); Platelet Count 118 X10^3/uL (150-400); Red Blood Cell Count 3.65 X10^6/uL (4.0-5.2); Red Cell Distribution Width 13.7 % (11.6-14.8); White Blood Cell Count 11.1 X10^3/uL (4.5-11.0)
[2020-07-22 01:00] LABS: Creatinine Urine Random 56.6 mg/dL; Protein (Total) Urine Random 20 mg/dL (0-12); Protein Creatinine Ratio Urine 0.35 GRAM/24H
[2020-07-22 01:02] LABS: Alanine Aminotransferase 14 IU/L (<35); Albumin 3.1 g/dL (3.5-5.0); Albumin Globulin Ratio 1.1 (1.0-2.8); Alkaline Phosphatase 146 U/L (38-126); Aspartate Aminotransferase 28 IU/L (14-36); BUN Creatinine Ratio 17.5 (6-22); Bilirubin Total 0.1 mg/dL (0.2-1.3); Blood Urea Nitrogen 10 mg/dL (7-17); Carbon Dioxide 24 mmol/L (22-32); Chloride 106 mmol/L (98-107); Estimated Glomerular Filt Rate > 60.0 mL/min (>60); Globulin 2.9 g/dL (1.7-4.1); Glucose 104 mg/dL (70-100); HEMOLYSIS < 15 (0-50); Potassium 3.5 mmol/L (3.4-5.1); Sodium 135 mmol/L (137-145); Uric Acid 4.1 mg/dL (2.5-6.2)
== END 2020-07-22 01:30 | disposition home or self-care (01) ==
LOC: OB 07-24 15:38
PROVIDERS: Family Medicine; PCP Registered Nurse; Referring Provider Obstetrics & Gynecology; Visit Provider Obstetrics & Gynecology
DX: O14.93 Unspecified pre-eclampsia, third trimester (principal); O48.0 Post-term pregnancy; Z3A.40 40 weeks gestation of pregnancy
CPT/HCPCS: 36415; 59025; 80053; 82570; 84156; 84550; 85025; G0378; G0379

== ENCOUNTER 2020-07-22 09:22 | Inpatient (IN) | payer OTHER, MEDICAID, SELFPAY ==
--- NOTE | 2020-07-22 | DI.US.S_ITS ---
PROCEDURE: US OB BIOPHYSICAL PROFILE INDICATIONS: postdates OUTSIDE/PRIOR DATING DATA: Last menstrual period (LMP): 10/12/2019. LMP-based estimated date of delivery (MARJORIE): 07/18/2020. First dating scan: Performed at 21 weeks 2 days. Estimated date of delivery (MARJORIE) from first dating scan: 07/11/2020. TECHNIQUE: Real-time scanning was performed of the fetus for biophysical profile, with image documentation. Endovaginal scanning: Not performed COMPARISON: None. FINDINGS: General: A single living intrauterine gestation is present. Presentation: Vertex Placenta: Placental position is anterior left, without previa. Amniotic fluid index: 24.7 cm, normal range is 5-24 cm. Within the inner fluid, there is layering debris. heart rate: 149 beats per minute. Maternal cervical canal: Not measured. Estimated gestational age from initial scan: 41 weeks 4 days. diaphragm appears intact. No evidence of pyloric stenosis. Urinary bladder not well visualized. Biophysical profile: Tone: 2 points. Movement: 2 points. Respiration: 2 points. Largest pocket of fluid: 2 points. IMPRESSION: 1. Single living intrauterine with heart rate of 149 beats per minute 2. Borderline polyhydramnios with amniotic fluid index of 24.7 centimeter. There is also nonspecific layering debris within the amniotic fluid. 3. Biophysical profile score 8 of 8. Dictated by: Jean Hernandez M.D. on 07/22/2020 at 10:21 Approved by: Jean Hernandez M.D. on 07/22/2020 at 10:32
[2020-07-22 09:57] LABS: Add Manual Diff / Slide Review NO; Basophils Absolute Auto 0 /uL (0-100); Basophils Percent Auto 0.4 % (0-2); Eosinophils Absolute Auto 200 /uL (0-450); Eosinophils Percent Auto 1.5 % (2-4); Hematocrit 34.7 % (36-46); Lymphocytes Absolute Auto 1700 /uL (1100-4500); Lymphocytes Percent Auto 16.7 % (25-40); Mean Corpuscular HGB Conc 34.5 % (30-36); Mean Corpuscular Hemoglobin 32.6 PG (26-34); Mean Corpuscular Volume 94.4 fL (80-100); Monocytes Absolute Auto 700 /uL (0-900); Monocytes Percent Auto 6.8 % (3-14); Neutrophils Absolute Auto 7600 /uL (1500-7000); Neutrophils Percent Auto 74.6 % (50-75); Platelet Count 97 X10^3/uL (150-400); Red Blood Cell Count 3.68 X10^6/uL (4.0-5.2); Red Cell Distribution Width 14.2 % (11.6-14.8); White Blood Cell Count 10.2 X10^3/uL (4.5-11.0)
[2020-07-22 10:10] LABS: Aspartate Aminotransferase 29 IU/L (14-36); BUN Creatinine Ratio 15.1 (6-22); Blood Urea Nitrogen 8 mg/dL (7-17); Estimated Glomerular Filt Rate > 60.0 mL/min (>60); Uric Acid 4.5 mg/dL (2.5-6.2)
[2020-07-22 10:11] LABS: Alanine Aminotransferase 16 IU/L (<35); Albumin 3.2 g/dL (3.5-5.0); Albumin Globulin Ratio 1.1 (1.0-2.8); Alkaline Phosphatase 141 U/L (38-126); Aspartate Aminotransferase 29 IU/L (14-36); BUN Creatinine Ratio 14.8 (6-22); Bilirubin Total 0.2 mg/dL (0.2-1.3); Blood Urea Nitrogen 8 mg/dL (7-17); Calcium 8.8 mg/dL (8.4-10.2); Carbon Dioxide 19 mmol/L (22-32); Chloride 107 mmol/L (98-107); Estimated Glomerular Filt Rate > 60.0 mL/min (>60); Globulin 2.8 g/dL (1.7-4.1); Glucose 125 mg/dL (70-100); HEMOLYSIS < 15 (0-50); Potassium 3.3 mmol/L (3.4-5.1); Sodium 135 mmol/L (137-145)
[2020-07-22 11:23] VITALS: BP 132/82
--- NOTE | 2020-07-22 12:19 | P.HPOB_ITS ---
OB HPI Date/Time Date of admission: 07/22/20 Date Patient Seen: 07/22/20 Time Patient Seen: 12:19 History of Present Condition Chief complaint: observation of labor : 6 Para: 0 Estimated Date of Delivery: 07/18/20 Estimated Gestational Age (weeks): 40 Narrative: Arleen Higgins is a 34 year old female admitted for induction for mild preeclampsia and 40 weeks Indications Indication for induction OB: medical complication (Mild preeclampsia) History of Present care: good care, initiated at week # (6), number of visits (16) and pounds weight gain (44) Dating criteria: LMP confirmed by 1st trimester US Ultrasounds: normal mid trimester US Obstetrical complications: preeclampsia Medical complications: respiratory (Asthma, needed a steroid inhaler mid trimester but has not needed it recently) Preadmission Labs Blood type: O (+) positive -: Antibody screen: negative, GBS status: negative, HBsAG: negative, HIV: negat helder, HSV 1: positive and RPR/VDLR: negative -: Chlamydia screen: not detected and Gonorrhea screen: not detected -: Rubella: immune and Varicella: immune HCAB: reactive Cell-free DNA: Normal 1 hr GTT: 123 Prior (ies) History: 2 terminations and 3 miscarriages Evaluation Evaluation Baseline heart rate: 130 Variability: Moderate (11-25) monitor accelerations: Present monitor decelerations: Absent Uterine Contraction Intensity: Mild Category of Tracing: Reactive Status: Category l Cervical dilation (cm): 1 Cervical effacement (%): 60 station: -1 Laboratory results: Laboratory Tests 07/22/20 07/22/20 07/22/20 09:45 09:45 09:45 WBC 10.2 RBC 3.68 L Hgb 12.0 Hct 34.7 L MCV 94.4 MCH 32.6 MCHC 34.5 RDW 14.2 Plt Count 97 L Neut % (Auto) 74.6 Lymph % (Auto) 16.7 L [place] % (Auto) 6.8 Eos % (Auto) 1.5 L Baso % (Auto) 0.4 Neut # (Auto) 7600 H Lymph # (Auto) 1700 [place] # (Auto) 700 Eos # (Auto) 200 Baso # (Auto) 0 Sodium 135 L Potassium 3.3 L Chloride 107 Carbon Dioxide 19 L BUN 8 8 Creatinine 0.53 0.54 Estimated GFR > 60.0 > 60.0 BUN/Creatinine Ratio 15.1 14.8 Glucose 125 H Uric Acid 4.5 Cancelled Calcium 8.8 Total Bilirubin 0.2 AST 29 29 ALT 16 Alkaline Phosphatase 141 H Total Protein 6.0 L Albumin 3.2 L Globulin 2.8 Albumin/Globulin Ratio 1.1 [facility] Medical History (Updated 07/21/20 @ 14:52 by Finesse Moncada DO) Acne (~2002) Acute pain of right shoulder Asthma Bilateral carpal tunnel syndrome Cervical somatic dysfunction DEVI III (cervical intraepithelial neoplasia grade III) with severe dysplasia (~09/06/18) Cranial somatic dysfunction Heart burn 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 Father Medication administered in error Grandfather Hepatic sclerosis Grandmother No problems noted. 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 Smoking Status: Never smoker Tobacco: How many years used: 15 second hand exposure: No alcohol intake: former substance use type: does not use Meds Home Medications and Allergies Home Medications Medication Instructions Recorded Confirmed Type calcium carbonate-magnesium tab PO 11/24/19 07/21/20 History hydroxide 412 mg-80 mg chewable tablet cholecalciferol (vitamin D3) 50 50 mcg PO DAILY 11/24/19 07/21/20 History mcg (2,000 unit) capsule folic acid 800 mcg tablet 0.8 mg PO DAILY 11/24/19 07/21/20 History prenat.vits,eber,fym-ndjz-yoxzj 1 tab PO DAILY 11/24/19 07/21/20 History acetaminophen 325 mg capsule 325 mg PO ONCE PRN 03/27/20 07/21/20 History albuterol sulfate 90 mcg/actuation 2 puff INHALATION Q4-6H PRN #18 g 03/27/20 07/21/20 Rx aerosol inhaler budesonide 90 mcg/actuation breath 1 inh INHALATION DAILY #1 ea 03/28/20 07/21/20 Rx activated powder inhaler Double Electric Breast Pump 1 ea TOPICAL .prn #1 ea 05/01/20 07/21/20 Rx cefuroxime axetil 250 mg tablet 250 mg PO BID #20 tab 05/10/20 07/21/20 Rx famotidine 20 mg tablet 20 mg PO BID #180 tab 06/09/20 07/21/20 Rx ondansetron 4 mg disintegrating 4 mg PO Q8H PRN #20 tab 07/19/20 07/21/20 Rx tablet pantoprazole 20 mg tablet,delayed 20 mg PO DAILY #30 tab 07/19/20 07/21/20 Rx release valacyclovir 500 mg tablet 500 mg PO .COMPLEX #60 tab 07/19/20 07/21/20 Rx labetalol 100 mg PO BID #30 tab 07/21/20 07/21/20 Rx Allergies Allergy/AdvReac Type Severity Reaction Status Date / Time eucalyptus Allergy Severe Swelling Verified 07/22/20 11:52 of Lip/Tongue/Throat mint Allergy Severe Lips swell Verified 07/22/20 11:19 up orange Allergy Severe Swelling Verified 07/22/20 11:52 of Lip/Tongue/Throat Review of Systems Review of Systems Narrative: Patient denies headaches. Yesterday she did have an episode short term of scotomata. No epigastric pain. Good movement. No leakage of fluid. No labor symptoms. Patient with no current symptoms of HSV. She only has oral not gentital. ROS: Yes All systems reviewed with the patient and are negative except as otherwise documented Exam Vital Signs (past 8 hours): Blood pressure 132/82, pulse of 92, temperature 36.4?- 07/22/20 11:23 Blood Pressure 132/82 Narrative Exam Narrative: HEENT exam within normal limits. Lungs are clear to auscultation percussion. Heart is regular rate and rhythm no S3-S4 or murmurs. Abdomen is gravid. Fetus is vertex. Extremities with +1 edema and nontender. DTRs are normal. Speculum was placed in the vagina. Gonsales bulb was placed through the cervix and the balloon inflated with 60 cc of saline. The Gonsales was taped to the patient's leg under pressure. Will start Pitocin at 3 units. When Gonsales is expelled from the cervix will increase Pitocin. Objective Labs Result Diagrams: 07/22/20 09:45 07/22/20 09:45 Labs: Laboratory Results - last 24 hr 07/22/20 07/22/20 07/22/20 09:45 09:45 09:45 WBC 10.2 RBC 3.68 L Hgb 12.0 Hct 34.7 L MCV 94.4 MCH 32.6 MCHC 34.5 RDW 14.2 Plt Count 97 L Neut % (Auto) 74.6 Lymph % (Auto) 16.7 L [place] % (Auto) 6.8 Eos % (Auto) 1.5 L Baso % (Auto) 0.4 Neut # (Auto) 7600 H Lymph # (Auto) 1700 [place] # (Auto) 700 Eos # (Auto) 200 Baso # (Auto) 0 Sodium 135 L Potassium 3.3 L Chloride 107 Carbon Dioxide 19 L BUN 8 8 Creatinine 0.53 0.54 Estimated GFR > 60.0 > 60.0 BUN/Creatinine Ratio 15.1 14.8 Glucose 125 H Uric Acid 4.5 Cancelled Calcium 8.8 Total Bilirubin 0.2 AST 29 29 ALT 16 Alkaline Phosphatase 141 H Total Protein 6.0 L Albumin 3.2 L Globulin 2.8 Albumin/Globulin Ratio 1.1 Assessment and Plan Assessment and Plan Assessment and Plan narrative: Patient with gradually increasing proteinuria, mild blood pressure elevations, platelets borderline, normal LFTs. Patient with 1 episode of scotomata short lived yesterday. Probably mild preeclampsia developing. Decision made to proceed with induction rather than waiting until tomorrow night. Discussed with the anesthesiologist on-call about the patient's borderline platelets. Will repeat at 4:00 p.m. if continuing to decrease will order platelets so that patient may have regional anesthesia.
[2020-07-22] MEDS: OXYTOCIN PREMIX 30 UNIT/500 ML PLAST..BAG IV (15:30)
[2020-07-22] MEDS: LACTATED RINGERS 1,000 ML 100 ML IV (15:30)
[2020-07-22 16:29] LABS: Platelet Count 110 X10^3/uL (150-400)
[2020-07-23] MEDS: fentaNYL 100 MCG/2 ML INJ (00:23)
--- NOTE | 2020-07-23 00:56 | PM.PREOP ---
Pre-operative Note COVID-19 COVID-19 status: Negative Result date/Date tested (Pos, Neg/Pending): 07/20/20 Interval Note History & Physical reviewed/Exam performed by Physician: Yes Changes to H&P: Yes H&P completed within 30 days and has changed as indicated here:: 1st stage arrest
--- NOTE | 2020-07-23 00:57 | PM.OBPNLAB ---
Date/Time Date Patient Seen: 07/23/20 Time Patient Seen: 00:57 Pain Control Comments: Patient did not receive any pain relief with epidurals x2 Pelvic Exam Dilation (cm): 6 Effacement (%): 80 station: 0 Amniotic membrane status: Ruptured (Clear fluid) Contractions Monitor mode: External Pitocin rate (mU/min): 6 Contraction frequency (min): 2 Contraction duration (min): 1 Contraction pattern: Regular Contraction intensity: Strong/Firm Status status: Category l Heart Rate Baseline: 145 Monitor Accelerations: Present Monitor Decelerations: Absent Monitor Variability: Moderate Assessment and Plan Plan: (Patient with no cervical dilation change in over 4 hours with no pain control) Comments: Patient is agreeable to proceed with section for 1st stage arrest. Risk of damage to bowel, bladder, ureters that could require additional surgery to repair. Risk of infection, risk of bleeding enough to require blood transfusion. Patient is agreeable to blood transfusion. Reaction to medication or anesthesia. Consent form signed and questions answered.
[2020-07-23] MEDS: CEFAZOLIN 2 GM/100 ML FROZ.PIGGY IV (01:54)
--- NOTE | 2020-07-23 02:05 | SUR.OPER ---
Supine on Padded OR bed, head on pillow, safety belt at thigh, arms secured on padded arm boards at <90 degrees abduction. Bump under right buttock. Legs uncrossed with pillow under knees, gel pad to heels, tape over blanket to lower legs.
[2020-07-23] MEDS: CARBOPROST 250 MCG/ML AMPUL IM (02:10)
[2020-07-23] MEDS: LACTATED RINGERS 1,000 ML 100 ML IV ×2 (02:15→11:38)
--- NOTE | 2020-07-23 02:23 | SUR.OPER ---
FHR 154. Cord blood and placenta to L&D with L&D RN. TOB live male @0205.
[2020-07-23 02:51] VITALS: BP 111/69; PULSE 119; RESP 17; TEMP 37; O2SAT 96
[2020-07-23 02:56] VITALS: BP 126/74; PULSE 108; RESP 17; O2SAT 96
[2020-07-23 03:01] VITALS: BP 133/82; PULSE 106; RESP 16; O2SAT 96
--- NOTE | 2020-07-23 03:01 | P.OP_ITS ---
Operative Date/Time/Diagnoses Date of procedure: 07/23/20 Time of procedure: 03:01 Pre-op diagnosis: 1st stage arrest 40 week gestation with mild preeclampsia Post-op diagnosis: same Procedure & Clinicians Procedure: Primary low-transverse section Same procedure as scheduled: Yes Indications: 1st stage arrest, patient did not progress past 6 cm Surgeon: Ale Garcia Aircraft Engine Mechanic: Kiara Harper Anesthesia Type: General Operative Notes Findings: Normal tubes, ovaries, uterus. Viable male with Apgars of 9 and 9 weighing 8 lb 3 oz Closure Type: primary Intraoperative meds administered: Hemabate (Intrauterine) and Pitocin Applied: Catheter (Gonsales) Estimated Blood Loss (mL): 650 Blood products transfused: none Complications: none Baby 1: Infant Gender: Male Presentation: vertex Position: Right Occiput Anterior Placental Delivery Description: Expressed and Normal Configuration Cord Vessel Description: 3 Vessels score (1 min): 9 score (5 min): 9 weight: 8 lb 3.2 oz Narrative: The patient was brought to the operating room where she was placed in a supine position with a left lateral tilt. A Gonsales catheter was in place. Pulsatile stockings were placed and functional throughout the case. 2 g of Ancef were given IV prior to the incision. Warming was in place. The patient was prepped and draped in usual sterile fashion. The patient underwent a general anesthesia. A low transverse incision was made with a scalpel and the incision was carried down to the fascial layer which was incised transversely with scissors. The pediatric dental assistant did her side of the incision. The midline attachments are superiorly and inferiorly. The rectus muscles were in the midline and the peritoneal incision was made with no damage to internal structures. The peritoneum was incised and superiorly and inferiorly. The incision was stretched with the surgeon and pediatric dental assistant placing traction. Bladder blade was placed and a bladder flap was developed and the bladder held away from the lower uterine segment. An incision was made in the uterus with the scalpel and the incision was extended with stretching. The head was elevated out of the abdomen and with fundal pressure by the pediatric dental assistant the baby was delivered. The was bulb suctioned for clear fluid and handed off to the warmer. Cord blood was collected. The placenta delivered spontaneously with traction. The uterus was cleaned with clean laps. The uterine incision was closed in 2 layers of 0 chromic suture the first a running locking layer the second an imbricating layer. The pediatric dental assistant was helping to expose the incision. The bladder peritoneum was repaired with 2-0 Vicryl suture. The gutters were cleaned of any remaining fluids and ovaries and tubes were observed to be normal. Adequate hemostasis was noted. The perineum was closed with 2-0 Vicryl suture. The fascia layer was closed with 0 Vicryl suture with 2 stitches. The pediatric dental assistant repairing half the incision with helping to retract and expose the incision for the other half. The incision was irrigated and adequate hemostasis noted. The incision was closed with interrupted 3-0 Vicryl sutures and then a subcuticular stitch of 4-0 Vicryl suture. Steri-Strips were placed. The uterus was massaged to remove any clots. The patient went to recovery room in good condition. Counts of instruments and sponges were correct. Dr. Harper was present throughout the case to assist with retraction, fundal pressure to deliver the , and cutting and suturing half the fascia. Post-operative Condition: stable Disposition: other ( Center) Aftercare: routine postop
[2020-07-23 03:07] VITALS: BP 137/69; PULSE 105; RESP 16; O2SAT 96
[2020-07-23] MEDS: OXYCODONE IR 5 MG TABLET PO ×5 (04:31→22:34)
[2020-07-23] MEDS: ACETAMINOPHEN 325 MG TABLET 650 MG PO ×3 (04:32→20:38)
[2020-07-23] MEDS: KETOROLAC 30 MG/ML VIAL IV ×2 (08:36→14:33)
[2020-07-23] MEDS: DOCUSATE 250 MG CAPSULE PO (08:37)
[2020-07-23] MEDS: LABETALOL 100 MG TABLET PO ×2 (08:37→20:38)
[2020-07-23] MEDS: OXYTOCIN 10 UNIT/ML VIAL 20 UNIT (10:30)
[2020-07-23 11:58] LABS: Add Manual Diff / Slide Review NO; Basophils Absolute Auto 100 /uL (0-100); Basophils Percent Auto 0.3 % (0-2); Eosinophils Absolute Auto 0 /uL (0-450); Hematocrit 25.7 % (36-46); Hemoglobin 8.7 g/dL (12.0-16.0); Lymphocytes Absolute Auto 1200 /uL (1100-4500); Lymphocytes Percent Auto 5.1 % (25-40); Mean Corpuscular HGB Conc 33.8 % (30-36); Mean Corpuscular Hemoglobin 32.1 PG (26-34); Mean Corpuscular Volume 94.9 fL (80-100); Monocytes Absolute Auto 1300 /uL (0-900); Monocytes Percent Auto 5.6 % (3-14); Neutrophils Absolute Auto 21000 /uL (1500-7000); Platelet Count 115 X10^3/uL (150-400); White Blood Cell Count 23.6 X10^3/uL (4.5-11.0)
--- NOTE | 2020-07-23 12:01 | PM.OBPN.1 ---
Subjective - OB Subjective Patient comments: pain well controlled [place] baby status: doing well and nursing well [place] feeding status: exclusively breast feeding Narrative: Patient denies headaches, scotomata, epigastric pain. She does not have excessive pain. She denies any nausea. Date Patient Seen: 07/23/20 Time Patient Seen: 12:02 Interval history: Postoperative day #1 primary section for 1st stage arrest. Exam Vital Signs (past 8 hours): Blood pressure 127/76 with the highest blood pressure since her of 132/83. Pulse of 103. Temperature 97.8? Oxygen Delivery Method Room Air Narrative Exam Narrative: Abdomen is soft, nontender. Uterus is firm, at U, nontender. Dressing is clean, dry, intact. Extremities with trace edema and nontender. Patient however despite having a firm uterus has continued to have increased bleeding. Patient with hypertension, asthma and did not respond to Pitocin. With a firm uterus decision made to try tranxemic acid to control the patient's bleeding Objective Labs Result Diagrams: 07/23/20 11:50 07/22/20 09:45 Labs: Laboratory Results - last 24 hr 07/22/20 07/22/20 07/23/20 13:30 16:15 11:50 WBC 23.6 H D RBC 2.70 L Hgb 8.7 L Hct 25.7 L MCV 94.9 MCH 32.1 MCHC 33.8 RDW 14.0 Plt Count 110 L 115 L Neut % (Auto) 89.0 H Lymph % (Auto) 5.1 L [place] % (Auto) 5.6 Eos % (Auto) 0.0 L Baso % (Auto) 0.3 Neut # (Auto) 51567 H Lymph # (Auto) 1200 [place] # (Auto) 1300 H Eos # (Auto) 0 Baso # (Auto) 100 Blood Type O Positive Antibody Screen Negative Assessment & Plan Assessment and Plan (1) Delivery by section using transverse incision of lower segment of uterus: Status: Acute Plan day: 1 plan OB: routine postop care Comments: Will try to control bleeding with tranxemic acid. Time Spent With Patient Time: Total time spent is greater than 50% in coordination of care (as documented) at patient's floor/unit and/or counseling patient: Time with patient: less than 15 minutes
[2020-07-23] MEDS: TRANEXAMIC ACID 1,000 MG in SODIUM CHLORIDE 0.9% 100 ML 400 ML IV ×2 (12:04→18:23)
[2020-07-23 12:09] LABS: Aspartate Aminotransferase 40 IU/L (14-36); BUN Creatinine Ratio 9.8 (6-22); Blood Urea Nitrogen 6 mg/dL (7-17); Estimated Glomerular Filt Rate > 60.0 mL/min (>60); Uric Acid 4.2 mg/dL (2.5-6.2)
[2020-07-23 13:05] LABS: Lactate Dehydrogenase 388 U/L (313-618)
--- NOTE | 2020-07-23 16:58 | DI.US.S_ITS ---
PROCEDURE: US PELVIC LIMITED INDICATIONS: VAGINAL BLEEDING - EVALUATE FOR RETAINED PRODUCTS OF CONCEPTION. TRANSABDOMINAL UTERUS ONLY. TECHNIQUE: Real-time transabdominal scanning was performed of the pelvic organs, with image documentation. COMPARISON: [facility], US, US OB >= 14 WEEKS FETUS, 07/20/2020, 15:43. FINDINGS: Overlying bandaging from section scar limits acoustic windows to the uterus. Uterus: Uterus measures 12.4 centimeter in transverse dimension and 8.1 centimeter in AP dimension. Longitudinal dimension not able to be accurately assessed by overlying section scar bandaging. Endometrial thickness measures 11 millimeter. No definite sites of increased vascularity in or adjacent to the endometrium. There is a hypoechoic focus within the posterior myometrium measuring 2.3 x 2.4 x 1.3 centimeter which does not abut the endometrium and may represent a fibroid. Ovaries: Not imaged. Other: No free pelvic fluid. IMPRESSION: Limited assessment without findings suspicious for retained products of conception. Appearance of the uterus and endometrium are not unexpected in the setting. Possible posterior intramural 2.4 centimeter fibroid. Dictated by: Jean Hernandez M.D. on 07/23/2020 at 17:11 Approved by: Jean Hernandez M.D. on 07/23/2020 at 17:16
--- NOTE | 2020-07-23 17:04 | P.PNOB_ITS ---
Subjective - OB Subjective Date Patient Seen: 07/23/20 Time Patient Seen: 17:05 Interval history: Patient with continued bright red, constant trickle of vaginal bleeding despite a firm uterus. Patient received 1 dose of tranexamic acid. Exam Vital Signs (past 8 hours): Oxygen Delivery Method Room Air Narrative Exam Narrative: Patient was placed in stirrups and a speculum placed. The entire cervix was evaluated and there were no cervical, vaginal or perineal tears. Abdominal ultrasound was ordered and there did not appear to be any retained products of conception. Objective Labs Result Diagrams: 07/23/20 11:50 07/23/20 11:50 Labs: Laboratory Results - last 24 hr 07/22/20 07/23/20 07/23/20 09:45 11:50 11:50 WBC 23.6 H D RBC 2.70 L Hgb 8.7 L Hct 25.7 L MCV 94.9 MCH 32.1 MCHC 33.8 RDW 14.0 Plt Count 115 L Neut % (Auto) 89.0 H Lymph % (Auto) 5.1 L [place] % (Auto) 5.6 Eos % (Auto) 0.0 L Baso % (Auto) 0.3 Neut # (Auto) 38490 H Lymph # (Auto) 1200 [place] # (Auto) 1300 H Eos # (Auto) 0 Baso # (Auto) 100 BUN 6 L Creatinine 0.61 Estimated GFR > 60.0 BUN/Creatinine Ratio 9.8 Uric Acid 4.2 AST 40 H Lactate Dehydrogenase 388 Assessment & Plan Assessment and Plan (1) Delivery by section using transverse incision of lower segment of uterus: Status: Acute (2) hemorrhage, delivered, current hospitalization: Status: Acute Plan day: 1 Comments: No obvious cause for patient's bleeding. Will continue to monitor. Will hold next Toradol dose and give 1 more dose of tranexemic acid. Time Spent With Patient Time: Total time spent is greater than 50% in coordination of care (as documented) at patient's floor/unit and/or counseling patient: Time with patient: 25 - 35 minutes
[2020-07-23 19:08] LABS: Add Manual Diff / Slide Review NO; Basophils Absolute Auto 100 /uL (0-100); Basophils Percent Auto 0.4 % (0-2); Eosinophils Absolute Auto 0 /uL (0-450); Eosinophils Percent Auto 0.1 % (2-4); Hematocrit 24.6 % (36-46); Hemoglobin 8.2 g/dL (12.0-16.0); Lymphocytes Absolute Auto 2000 /uL (1100-4500); Lymphocytes Percent Auto 9.8 % (25-40); Mean Corpuscular HGB Conc 33.5 % (30-36); Mean Corpuscular Hemoglobin 31.8 PG (26-34); Monocytes Absolute Auto 1400 /uL (0-900); Monocytes Percent Auto 6.9 % (3-14); Neutrophils Absolute Auto 16500 /uL (1500-7000); Neutrophils Percent Auto 82.8 % (50-75); Platelet Count 110 X10^3/uL (150-400); Red Blood Cell Count 2.58 X10^6/uL (4.0-5.2); White Blood Cell Count 19.9 X10^3/uL (4.5-11.0)
[2020-07-23 20:38] VITALS: BP 136/84; PULSE 120
[2020-07-24 00:45] VITALS: PULSE 110; RESP 20; O2SAT 95
[2020-07-24] MEDS: ALBUTEROL HFA MDI 60 PUFF/8 GM INHALER INH (00:45)
[2020-07-24] MEDS: ACETAMINOPHEN 325 MG TABLET 650 MG PO ×3 (02:31→20:40)
[2020-07-24] MEDS: OXYCODONE IR 5 MG TABLET PO ×3 (02:32→20:30)
[2020-07-24] MEDS: OXYCODONE IR 10 MG TABLET PO (06:18)
--- NOTE | 2020-07-24 07:49 | P.PNOB_ITS ---
Subjective - OB Subjective Patient comments: pain well controlled and tolerating diet [place] baby status: doing well and nursing well [place] feeding status: exclusively breast feeding Date Patient Seen: 07/24/20 Time Patient Seen: 07:49 Interval history: Patient is post operative day # 1.She has had no further episodes of hemorrhage. Patient denies headaches, scotomata, epigastric pain. She denies any problems with her asthma. She is breast-feeding without difficulty. She is tolerating the pain. She is ambulatory and denies any nausea. Exam Vital Signs (past 8 hours): Blood pressure 119/76, pulse 108, temperature 98.6?- 07/24/20 00:45 Pulse Rate 110 H Respiratory Rate 20 Pulse Oximetry 95 Oxygen Delivery Method Room Air Narrative Exam Narrative: Patient's abdomen is soft, nontender. Uterus is firm, at U, appropriately tender. Dressing is clean, dry, intact. Mild lochia. Extremi ties with +1 edema and nontender. Objective Labs Result Diagrams: 07/23/20 19:00 07/23/20 11:50 Labs: Laboratory Results - last 24 hr 07/22/20 07/23/20 07/23/20 09:45 11:50 11:50 WBC 23.6 H D RBC 2.70 L Hgb 8.7 L Hct 25.7 L MCV 94.9 MCH 32.1 MCHC 33.8 RDW 14.0 Plt Count 115 L Neut % (Auto) 89.0 H Lymph % (Auto) 5.1 L [place] % (Auto) 5.6 Eos % (Auto) 0.0 L Baso % (Auto) 0.3 Neut # (Auto) 43906 H Lymph # (Auto) 1200 [place] # (Auto) 1300 H Eos # (Auto) 0 Baso # (Auto) 100 BUN 6 L Creatinine 0.61 Estimated GFR > 60.0 BUN/Creatinine Ratio 9.8 Uric Acid 4.2 AST 40 H Lactate Dehydrogenase 388 07/23/20 19:00 WBC 19.9 H RBC 2.58 L Hgb 8.2 L Hct 24.6 L MCV 95.0 MCH 31.8 MCHC 33.5 RDW 14.0 Plt Count 110 L Neut % (Auto) 82.8 H Lymph % (Auto) 9.8 L [place] % (Auto) 6.9 Eos % (Auto) 0.1 L Baso % (Auto) 0.4 Neut # (Auto) 22296 H Lymph # (Auto) 2000 [place] # (Auto) 1400 H Eos # (Auto) 0 Baso # (Auto) 100 BUN Creatinine Estimated GFR BUN/Creatinine Ratio Uric Acid AST Lactate Dehydrogenase Assessment & Plan Assessment and Plan (1) Delivery by section using transverse incision of lower segment of uterus: Status: Acute (2) hemorrhage, delivered, current hospitalization: Status: Acute (3) Pre-eclampsia affecting childbirth: Status: Acute Plan day: 1 plan OB: routine postop care Comments: Patient's blood pressures remained stable. Will recheck preeclamptic labs today. Patient's bleeding appears to be under control. Routine post C- section care. Time Spent With Patient Time: Total time spent is greater than 50% in coordination of care (as documented) at patient's floor/unit and/or counseling patient: Time with patient: less than 15 minutes
[2020-07-24 08:25] VITALS: BP 143/90; PULSE 122
[2020-07-24] MEDS: IBUPROFEN 600 MG TABLET PO (08:25)
[2020-07-24] MEDS: LABETALOL 100 MG TABLET PO (08:25)
[2020-07-24] MEDS: DOCUSATE 250 MG CAPSULE PO (08:25)
[2020-07-24 09:46] LABS: Add Manual Diff / Slide Review NO; Basophils Absolute Auto 0 /uL (0-100); Basophils Percent Auto 0.2 % (0-2); Eosinophils Absolute Auto 100 /uL (0-450); Eosinophils Percent Auto 0.3 % (2-4); Hematocrit 23.5 % (36-46); Lymphocytes Absolute Auto 1600 /uL (1100-4500); Lymphocytes Percent Auto 8.5 % (25-40); Mean Corpuscular Hemoglobin 32.4 PG (26-34); Mean Corpuscular Volume 95.3 fL (80-100); Monocytes Absolute Auto 1000 /uL (0-900); Monocytes Percent Auto 5.4 % (3-14); Neutrophils Absolute Auto 16300 /uL (1500-7000); Neutrophils Percent Auto 85.6 % (50-75); Platelet Count 127 X10^3/uL (150-400); Red Blood Cell Count 2.47 X10^6/uL (4.0-5.2); Red Cell Distribution Width 14.4 % (11.6-14.8)
[2020-07-24 10:00] LABS: Alanine Aminotransferase 19 IU/L (<35); Albumin 2.7 g/dL (3.5-5.0); Albumin Globulin Ratio 1.1 (1.0-2.8); Alkaline Phosphatase 99 U/L (38-126); Aspartate Aminotransferase 38 IU/L (14-36); BUN Creatinine Ratio 15.9 (6-22); Blood Urea Nitrogen 10 mg/dL (7-17); Calcium 8.3 mg/dL (8.4-10.2); Carbon Dioxide 24 mmol/L (22-32); Chloride 106 mmol/L (98-107); Estimated Glomerular Filt Rate > 60.0 mL/min (>60); Globulin 2.5 g/dL (1.7-4.1); Glucose 123 mg/dL (70-100); HEMOLYSIS < 15 (0-50); Potassium 3.6 mmol/L (3.4-5.1); Sodium 134 mmol/L (137-145); Total Protein 5.2 g/dL (6.3-8.2)
[2020-07-24 10:01] LABS: Bilirubin Total < 0.1 mg/dL (0.2-1.3)
[2020-07-25] MEDS: OXYCODONE IR 10 MG TABLET PO ×2 (00:08→04:12)
[2020-07-25] MEDS: ACETAMINOPHEN 325 MG TABLET 650 MG PO ×3 (04:12→15:12)
[2020-07-25 06:47] LABS: Add Manual Diff / Slide Review NO; Basophils Absolute Auto 0 /uL (0-100); Basophils Percent Auto 0.2 % (0-2); Eosinophils Absolute Auto 100 /uL (0-450); Eosinophils Percent Auto 0.6 % (2-4); Hematocrit 22.8 % (36-46); Hemoglobin 7.7 g/dL (12.0-16.0); Lymphocytes Absolute Auto 2300 /uL (1100-4500); Lymphocytes Percent Auto 12.6 % (25-40); Mean Corpuscular HGB Conc 33.8 % (30-36); Mean Corpuscular Hemoglobin 32.4 PG (26-34); Mean Corpuscular Volume 95.9 fL (80-100); Monocytes Absolute Auto 1200 /uL (0-900); Monocytes Percent Auto 6.8 % (3-14); Neutrophils Absolute Auto 14200 /uL (1500-7000); Neutrophils Percent Auto 79.8 % (50-75); Platelet Count 154 X10^3/uL (150-400); Red Blood Cell Count 2.38 X10^6/uL (4.0-5.2); Red Cell Distribution Width 14.2 % (11.6-14.8); White Blood Cell Count 17.8 X10^3/uL (4.5-11.0)
[2020-07-25 06:56] LABS: Alanine Aminotransferase 19 IU/L (<35); Albumin 2.7 g/dL (3.5-5.0); Alkaline Phosphatase 99 U/L (38-126); Aspartate Aminotransferase 34 IU/L (14-36); BUN Creatinine Ratio 17.2 (6-22); Blood Urea Nitrogen 11 mg/dL (7-17); Calcium 8.4 mg/dL (8.4-10.2); Carbon Dioxide 26 mmol/L (22-32); Chloride 104 mmol/L (98-107); Estimated Glomerular Filt Rate > 60.0 mL/min (>60); Globulin 2.7 g/dL (1.7-4.1); Glucose 88 mg/dL (70-100); HEMOLYSIS < 15 (0-50); Potassium 3.6 mmol/L (3.4-5.1); Sodium 135 mmol/L (137-145); Total Protein 5.4 g/dL (6.3-8.2)
[2020-07-25 06:57] LABS: Bilirubin Total < 0.1 mg/dL (0.2-1.3)
[2020-07-25 09:01] VITALS: BP 130/82
[2020-07-25] MEDS: DOCUSATE 250 MG CAPSULE PO (09:01)
[2020-07-25] MEDS: IBUPROFEN 600 MG TABLET PO ×2 (09:01→15:12)
[2020-07-25] MEDS: LABETALOL 100 MG TABLET PO (09:01)
[2020-07-25] MEDS: OXYCODONE IR 5 MG TABLET PO ×2 (09:01→13:19)
--- NOTE | 2020-07-25 09:18 | PM.OBDS.1 ---
Discharge Providers Provider Date of admission: 07/22/20 09:22 Discharge Date: 07/25/20 Primary care physician: PARADISE Ansari Consults: 07/22/20 11:49 Consult to Anesthesiology Urgent Comment: Consulting Provider: Anesthesiologist Reason for consultation: Epidural Has provider been notified: No 07/23/20 03:12 Consult to Assistant Manager Trainee Routine Comment: Discharge provider: Ale Garcia MD Summary Hospital Course Date Patient Seen: 07/25/20 Time Patient Seen: 09:18 Diagnoses: 40 week gestation with mild preeclampsia, 1st stage arrest Hospital Course: Patient was admitted for induction due to mild preeclampsia at 40 weeks. Patient had a Gonsales bulb placed through the cervix followed by Pitocin. Patient received an epidural catheter for pain control. She had a 1st stage arrest and underwent a primary low-transverse section. Patient had some intermittent higher blood pressures but mostly controlled on labetalol b.i.d.. Patient had low but stable platelets. She had an initial slight increase in LFTs which resolved by day 2. Patient has slight increase in temperature, max 99.6 on postoperative day 1. She is afebrile by postop day 2. Patient denies headaches, scotomata, epigastric pain. She is breast-feeding without difficulty. She is urinating and ambulating well. She is passing gas. Pain is under control when she is consistent with her pain medicines Peripartum Data Infant Delivery Method: Section Procedures: Gonsales bulb followed by Pitocin induction, epidural catheter, primary low-transverse section complications: none 1: Gender: Male Disposition of : home Discharge Diagnosis (1) Delivery by section using transverse incision of lower segment of uterus: Status: Acute (2) hemorrhage, delivered, current hospitalization: Status: Acute (3) Pre-eclampsia affecting childbirth: Status: Acute Status at Discharge Cognitive/behavioral status at discharge: oriented Functional status at discharge: independent ambulation Overall status at discharge: patient is progressing back to baseline Time Spent with Patient Time attestation: Total time spent providing and/or coordinating discharge services: Time spent: Less than 30 minutes Objective Labs Result Diagrams: 07/25/20 06:15 07/25/20 06:15 Labs: Laboratory Results - last 24 hr 07/24/20 07/24/20 07/25/20 09:35 09:35 06:15 WBC 19.0 H 17.8 H RBC 2.47 L 2.38 L Hgb 8.0 L 7.7 L Hct 23.5 L 22.8 L MCV 95.3 95.9 MCH 32.4 32.4 MCHC 34.0 33.8 RDW 14.4 14.2 Plt Count 127 L 154 Neut % (Auto) 85.6 H 79.8 H Lymph % (Auto) 8.5 L 12.6 L [place] % (Auto) 5.4 6.8 Eos % (Auto) 0.3 L 0.6 L Baso % (Auto) 0.2 0.2 Neut # (Auto) 73500 H 31836 H Lymph # (Auto) 1600 2300 [place] # (Auto) 1000 H 1200 H Eos # (Auto) 100 100 Baso # (Auto) 0 0 Sodium 134 L Potassium 3.6 Chloride 106 Carbon Dioxide 24 BUN 10 Creatinine 0.63 Estimated GFR > 60.0 BUN/Creatinine Ratio 15.9 Glucose 123 H Calcium 8.3 L Total Bilirubin < 0.1 L AST 38 H ALT 19 Alkaline Phosphatase 99 Total Protein 5.2 L Albumin 2.7 L Globulin 2.5 Albumin/Globulin Ratio 1.1 07/25/20 06:15 WBC RBC Hgb Hct MCV MCH MCHC RDW Plt Count Neut % (Auto) Lymph % (Auto) [place] % (Auto) Eos % (Auto) Baso % (Auto) Neut # (Auto) Lymph # (Auto) [place] # (Auto) Eos # (Auto) Baso # (Auto) Sodium 135 L Potassium 3.6 Chloride 104 Carbon Dioxide 26 BUN 11 Creatinine 0.64 Estimated GFR > 60.0 BUN/Creatinine Ratio 17.2 Glucose 88 Calcium 8.4 Total Bilirubin < 0.1 L AST 34 ALT 19 Alkaline Phosphatase 99 Total Protein 5.4 L Albumin 2.7 L Globulin 2.7 Albumin/Globulin Ratio 1.0 Exam Vital Signs (past 8 hours): - Blood pressure 130/82, pulse 93, temperature 98.8? 07/25/20 09:01 Blood Pressure 130/82 Oxygen Delivery Method Room Air Narrative Exam Narrative: Patient's abdomen is soft, nontender. Uterus is firm, at U, appropriately tender. Aquacel dressing is clean, dry, intact. Mild lochia. Extremities with 1+ edema and nontender. Patient is Rh positive, rubella immune, and received Tdap in the 3rd trimester. Discharge Plan Discharge Plan Patient Disposition: Home Discharge orders & Medications Prescriptions: New ibuprofen 600 mg Tablet 600 mg PO Q6HR PRN (Reason: Fever/Mild Pain (1-3)) Qty: 30 RF: 0 docusate sodium 250 mg Capsule 250 mg PO DAILY Qty: 30 RF: 0 oxycodone 5 mg Tablet 5 mg PO Q4HR PRN (Reason: Pain, Moderate (4-6)) Qty: 30 RF: 0 Continued prenat.vits,eber,vwm-wvjn-banmi Tablet 1 tab PO DAILY RF: 0 valacyclovir 500 mg tablet 500 mg PO .COMPLEX Qty: 60 RF: 1 pantoprazole 20 mg tablet,delayed release (DR/EC) 20 mg PO DAILY Qty: 30 RF: 2 ondansetron 4 mg tablet,disintegrating 4 mg PO Q8H PRN (Reason: nausea and vomiting) Qty: 20 RF: 2 Double Electric Breast Pump 1 ea topical .prn Qty: 1 RF: 0 acetaminophen [Tylenol] 325 mg capsule 325 mg PO ONCE PRN (Reason: Pain, Mild) RF: 0 albuterol sulfate 90 mcg/actuation HFA aerosol inhaler 2 puff inhalation Q4-6H PRN (Reason: shortness of breath or wheezing) Qty: 18 RF: 3 labetalol 100 mg tablet 100 mg PO BID Qty: 30 RF: 0 Discontinued folic acid 800 mcg tablet 0.8 mg PO DAILY RF: 0 calcium carbonate-mag hydroxid 412-80 mg tablet,chewable 1 tab PO PRN PRN (Reason: Heartburn) RF: 0 Follow up/Referrals: Paulina Burch MD [Physician] - 1 Week (BP check, Aquacel removal on August 01Friday at 12:[address] Garcia) Boo Oliver ARNP [Primary Care Provider] - Diet/Activity/Treatments Diet: Regular Activity: Nothing in vagina or lifting over 20 lb for 6 weeks Skin/Wound/Dressing Care Report to your healthcare provider any signs of infection, such as:: chills, fever and increased pain Dressing: Leave dressing on until 1 week postop visit Visit Report/Discharge Packet Stand Alone Forms: Discharge: Care Discharge Data Primary Care Provider: Boo Oliver
[2020-07-25 09:27] VITALS: BP 130/82; PULSE 93; RESP 16; TEMP 37.1
== END 2020-07-25 16:30 | disposition home or self-care (01) | DRG 540 ==
PROVIDERS: Obstetrics & Gynecology; Admitting Provider Family Medicine; PCP Registered Nurse; Visit Provider Specialist
PROC: 10D00Z1 Extraction of Products of Conception, Low, Open Approach (ICD-10-PCS; CPT 59514; principal; 2020-07-23 02:00)
DX: O14.04 Mild to moderate pre-eclampsia, complicating childbirth (principal); O72.1 Other immediate postpartum hemorrhage; O98.52 Other viral diseases complicating childbirth; B00.89 Other herpesviral infection; Z3A.40 40 weeks gestation of pregnancy; Z37.0 Single live birth; O62.1 Secondary uterine inertia; O99.52 Diseases of the respiratory system complicating childbirth; J45.909 Unspecified asthma, uncomplicated
CPT/HCPCS: 01967; 01968; 36415; 59025; 59050; 59514; 76819; 76857; 80053; 82570; 83615; 84156; 84450; 84550; 85025; 85049; 86850; 86900; 86901; 94640; G0378; A9270; G0379; J0330; J0690; J1100; J1170; J1885; J2405; J2590; J2704; J3010

== ENCOUNTER → 2020-10-06 09:26 | Outpatient (CLI) | payer OTHER, MEDICAID, SELFPAY ==
[2020-10-06 10:01] LABS: Add Manual Diff / Slide Review NO; Basophils Absolute Auto 0 /uL (0-100); Basophils Percent Auto 0.6 % (0-2); Eosinophils Absolute Auto 200 /uL (0-450); Eosinophils Percent Auto 3.5 % (2-4); Hematocrit 39.9 % (36-46); Hemoglobin 13.2 g/dL (12.0-16.0); Lymphocytes Absolute Auto 1800 /uL (1100-4500); Lymphocytes Percent Auto 34.3 % (25-40); Mean Corpuscular Hemoglobin 29.5 PG (26-34); Mean Corpuscular Volume 89.5 fL (80-100); Monocytes Absolute Auto 500 /uL (0-900); Monocytes Percent Auto 8.8 % (3-14); Neutrophils Absolute Auto 2800 /uL (1500-7000); Neutrophils Percent Auto 52.8 % (50-75); Platelet Count 201 X10^3/uL (150-400); Red Blood Cell Count 4.46 X10^6/uL (4.0-5.2); White Blood Cell Count 5.4 X10^3/uL (4.5-11.0)
[2020-10-06 10:37] LABS: Alanine Aminotransferase 55 IU/L (<35); Albumin Globulin Ratio 1.3 (1.0-2.8); Alkaline Phosphatase 105 U/L (38-126); Aspartate Aminotransferase 38 IU/L (14-36); BUN Creatinine Ratio 16.9 (6-22); Bilirubin Total 0.4 mg/dL (0.2-1.3); Blood Urea Nitrogen 14 mg/dL (7-17); Calcium 9.1 mg/dL (8.4-10.2); Carbon Dioxide 26 mmol/L (22-32); Chloride 107 mmol/L (98-107); Estimated Glomerular Filt Rate > 60.0 mL/min (>60); Globulin 3.1 g/dL (1.7-4.1); Glucose 96 mg/dL (70-100); HEMOLYSIS < 15 (0-50); Potassium 4.1 mmol/L (3.4-5.1); Sodium 139 mmol/L (137-145); Total Protein 7.1 g/dL (6.3-8.2)
[2020-10-06 10:51] LABS: Vitamin D 25 Hydroxy (D3) 51.3 ng/mL (30.0-100.0)
[2020-10-06 10:57] LABS: Free T3, Triiodothyronine Free 3.77 pg/mL (2.77-5.27); Free T4, Direct Thyroxine 0.87 ng/dL (0.78-2.19)
[2020-10-06 11:11] LABS: Thyroid Stimulating Hormone 1.51 uIU/mL (0.47-4.68)
== END ==
PROVIDERS: PCP Family Medicine; Referring Provider Family Medicine; Visit Provider Family Medicine
DX: R53.83 Other fatigue (principal); Z13.21 Encounter for screening for nutritional disorder; Z87.59 Personal history of other complications of pregnancy, childbirth and the puerperium
CPT/HCPCS: 36415; 80053; 82306; 84439; 84443; 84481; 85025

== ENCOUNTER → 2020-11-29 15:02 | Outpatient (CLI) | payer OTHER, MEDICAID, SELFPAY ==
[2020-11-29 15:33] LABS: COVID19 -Nasal RAPID POSITIVE (Negative)
== END ==
PROVIDERS: PCP Family Medicine; Visit Provider Student in an Organized Health Care Education/Training Program
DX: U07.1 COVID-19 (principal)
CPT/HCPCS: 87635

== ENCOUNTER → 2021-08-02 15:29 | Outpatient (CLI) | payer OTHER, MEDICAID, SELFPAY ==
[2021-08-02 15:58] LABS: COVID19 -Nasal RAPID Negative (Negative)
== END ==
PROVIDERS: PCP Family Medicine; Visit Provider Obstetrics & Gynecology
DX: Z20.822 Contact with and (suspected) exposure to COVID-19 (principal); Z01.812 Encounter for preprocedural laboratory examination
CPT/HCPCS: 87635; C9803

== ENCOUNTER 2021-08-03 07:32 | Day surgery (SDC) | payer OTHER, MEDICAID, SELFPAY ==
[2021-08-02 07:51] VITALS: BMI 35.3
[2021-08-03 07:59] VITALS: BP 106/71; PULSE 76; RESP 16; TEMP 36.9; O2SAT 98; BMI 35.9
[2021-08-03] MEDS: LACTATED RINGERS 1,000 ML 100 ML IV (08:12)
--- NOTE | 2021-08-03 08:41 | PM.PREOP ---
Pre-operative Note COVID-19 COVID-19 status: Negative Result date/Date tested (Pos, Neg/Pending): 08/02/21 Criteria for continued procedure: Expected advancement of disease process Interval Note History & Physical reviewed/Exam performed by Physician: Yes Changes to H&P: No H&P completed within 30 days and has changed as indicated here:: Heart: RRR Lungs: CTAB
[2021-08-03] MEDS: LIDOCAINE 1% W/EPI 20 ML INJ (09:18)
[2021-08-03] MEDS: POTASSIUM IODIDE/IODINE 473 ML SOLUTION TOP (09:19)
[2021-08-03] MEDS: FERRIC SUBSULFATE 8 GM SOLUTION 8 ML TOP (09:21)
--- NOTE | 2021-08-03 09:33 | SUR.OPER ---
Lithotomy on padded OR bed, head on pillow, arms secured on padded arm boards at <90 degrees abduction. Legs secured in padded yellow fins stirrups.
[2021-08-03 09:40] VITALS: BP 107/66; PULSE 95; RESP 10; TEMP 36.5; O2SAT 98
--- NOTE | 2021-08-03 09:44 | PM.GYNOP.1 ---
Operative Date/Time/Diagnoses Date of procedure: 08/03/21 Time of procedure: 08:45 Pre-op diagnosis: CIN2 Post-op diagnosis: same Procedure & Clinicians Procedure: Procedures Operation Date: 08/03/21 08:45 Actual Procedure Side Surgeon p LEEP Procedure Paulina Burch MD Indications: cervical dysplasia Surgeon: Paulina Burch Anesthesia Type: MAC +/- Operative Notes Findings: Normal vulva and vagina. Cervix with poor lugols uptake around the cervical canal. Specimen(s): other (Anterior and posterior lips of cervix, endocervical canal, endocervical curettings) Estimated blood loss (mL): 5 Procedure in detail: After proper consents were obtained, the patient was taken to the operating room. IV sedation was induced, and she was placed in the dorsal lithotomy position and draped in the normal sterile fashion. The patient had voided en route to the OR. A coated speculum was placed in to the vagina and good visualization of the cervix was achieved. The cervix was coated with Lugol's solution, and the above findings noted. 5ccms of 1% lidocaine with epi were injected into the stroma of the cervix. A [id number] LEEP loop was used to removed the anterior and posterior lip of the cervix, and then the endocervical canal. An endocervical curettage was performed. Hemostasis was achieved with roller ball cautery, and monsels solution placed as well. The patient tolerated the procedure well, and all counts were correct. She was taken to the PACU in stable condition. IVF: 800ccs LR Complications: none Post-operative Condition: stable Disposition: PACU Plan for aftercare: Routine postop care
[2021-08-03 09:45] VITALS: BP 82/58; PULSE 80; RESP 13; O2SAT 96
[2021-08-03 09:55] VITALS: BP 97/52; PULSE 85; RESP 14; TEMP 36.3; O2SAT 99
[2021-08-03 10:02] VITALS: BP 110/64; PULSE 74; RESP 13; TEMP 36.5; O2SAT 99
== END 2021-08-03 10:20 | disposition home or self-care (01) ==
PROVIDERS: PCP Family Medicine; Visit Provider Obstetrics & Gynecology
PROC: 0UBC7ZZ Excision of Cervix, Via Natural or Artificial Opening (ICD-10-PCS; CPT 57522; principal; 2021-08-03 08:45)
DX: N87.1 Moderate cervical dysplasia (principal); J45.909 Unspecified asthma, uncomplicated; K21.9 Gastro-esophageal reflux disease without esophagitis
CPT/HCPCS: 57460; 81025; A9270; J1100; J1885; J2250; J2405; J2704; J3010

== ENCOUNTER → 2021-08-16 13:49 | Outpatient (CLI) | payer OTHER, MEDICAID, SELFPAY | PROVIDERS: PCP Family Medicine; Visit Provider Physician Assistant Medical | DX: N89.8 Other specified noninflammatory disorders of vagina (principal) | CPT/HCPCS: 87210 ==

== ENCOUNTER 2021-10-22 11:40 | Emergency (ER) | payer OTHER, MEDICAID, SELFPAY ==
[2021-10-22 12:06] VITALS: BP 138/100; PULSE 90; RESP 18; TEMP 36.8; O2SAT 97; BMI 35.5
[2021-10-22 12:54] LABS: Add Manual Diff / Slide Review NO; Basophils Absolute Auto 0 /uL (0-100); Basophils Percent Auto 0.8 % (0-2); Eosinophils Absolute Auto 200 /uL (0-450); Hematocrit 44.3 % (36-46); Hemoglobin 15.2 g/dL (12.0-16.0); Lymphocytes Absolute Auto 1900 /uL (1100-4500); Lymphocytes Percent Auto 30.6 % (25-40); Mean Corpuscular HGB Conc 34.2 % (30-36); Mean Corpuscular Hemoglobin 31.7 PG (26-34); Mean Corpuscular Volume 92.6 fL (80-100); Monocytes Absolute Auto 600 /uL (0-900); Monocytes Percent Auto 9.6 % (3-14); Neutrophils Absolute Auto 3400 /uL (1500-7000); Platelet Count 166 X10^3/uL (150-400); Red Blood Cell Count 4.78 X10^6/uL (4.0-5.2); Red Cell Distribution Width 12.3 % (11.6-14.8); White Blood Cell Count 6.2 X10^3/uL (4.5-11.0)
[2021-10-22 12:57] LABS: UR Morphine/Opiate cutoff 300 Negative (Negative); Ur Creatinine Normal (Normal); Ur Specific Gravity Normal (Normal); Urine Amphetamines Negative (Negative); Urine Barbiturates Negative (Negative); Urine Benzodiazepines Negative (Negative); Urine Cocaine Negative (Negative); Urine MDMA Negative (Negative); Urine Methadone Negative (Negative); Urine Methamphetamines Negative (Negative); Urine Oxycodone Negative (Negative); Urine Phencyclidine Negative (Negative); Urine Tetrahydrocannabinol Positive (Negative); Urine Tricyclic Antidepressant Negative (Negative); Urine pH Normal (Normal)
[2021-10-22 13:00] LABS: Acetaminophen < 10 ug/mL (10-30); Alanine Aminotransferase 57 IU/L (<35); Albumin 4.6 g/dL (3.5-5.0); Albumin Globulin Ratio 1.4 (1.0-2.8); Alkaline Phosphatase 98 U/L (38-126); Aspartate Aminotransferase 38 IU/L (14-36); BUN Creatinine Ratio 17.9 (6-22); Bilirubin Total 0.5 mg/dL (0.2-1.3); Blood Urea Nitrogen 14 mg/dL (7-17); Calcium 8.8 mg/dL (8.4-10.2); Carbon Dioxide 26 mmol/L (22-32); Chloride 105 mmol/L (98-107); Estimated Glomerular Filt Rate > 60 mL/min (>60); Ethanol (ETOH) < 10 mg/dL; Globulin 3.3 g/dL (1.7-4.1); Glucose 105 mg/dL (70-100); HEMOLYSIS < 15 (0-50); Potassium 4.2 mmol/L (3.4-5.1); Salicylate < 1.0 mg/dL (<20); Sodium 137 mmol/L (137-145); Total Protein 7.9 g/dL (6.3-8.2)
[2021-10-22 13:03] LABS: Bacteria Urine Many (>30); Culture Indicated Urine Cult Not Indicated; RBC Urine 1-5/HPF (0-5/HPF); Squamous Epithelial Cell Urine 5-10 /HPF (0-5/HPF); WBC Urine 1-5/HPF (0-5/HPF)
[2021-10-22 13:23] LABS: Free T4, Direct Thyroxine 1.09 ng/dL (0.78-2.19)
--- NOTE | 2021-10-22 13:34 | ED_ITS ---
HPI - Psych <Cynthia Hector Barbara, [facility] - Last Filed: 10/22/21 17:26> General Chief Complaint: Psychiatric Symptoms Stated Complaint: Mental Health Time Seen by Provider: 10/22/21 13:16 Source: patient Mode of arrival: Ambulatory History of Present Illness HPI Narrative: This is a 36-year-old female is , has a [id number], she is brought into the emergency department by herself for concern about threats of suicide earlier today with her . Patient endorses that she feels like she is sided relationship she became angry car tried to get out of the car [place] on the freeway today because she states that she wanted to get away from him. Patient states that he she isn't loved by her and he loves their child instead. Patient denies any ingestion, recent trauma, any attempts at suicide in the past. She denies any homicidal ideation. She states that when she becomes very angry nothing is safe in her way, she states that she throws things often but does not intend to hurt anybody. Patient endorses starting Zoloft three months ago, she states that she takes half a pill, she is prescribed 25 mg tabs. Patient's primary care provider is Dr. Ambrosio, states that she has only appointment about this is passed, she endorses she has appointment with her therapist tomorrow. She denies being in any therapy with her at this time. She states that he does not harm her and she is safe at home however they were sleeping in separate beds and she is not happy with him. She states that she can see positive life outside of him but feels suicidal when she was with him. She states that she thinks about suicide often but does not have a plan. She denies drinking alcohol, does not smoke cigarettes, endorses occasional marijuana use. Related Data Previous Rx's Medication Instructions Recorded valacyclovir 500 mg tablet 500 mg PO .COMPLEX History of 07/19/20 genital herpes #60 tabs sertraline 25 mg tablet 25 mg PO DAILY #30 tabs 08/02/21 clobetasol 0.05 % topical cream 1 applic topical DAILY #15 grams 08/28/21 Symbicort 80 mcg-4.5 mcg/actuation 2 puff inhalation BID #10.2 grams 09/07/21 HFA aerosol inhaler (budesonide-formoterol) famotidine 20 mg tablet (Acid 20 mg PO BID heartburn 30 days #60 09/10/21 Supervisor Policy Change Clerks (famotidine)) tabs Allergies Allergy/AdvReac Type Severity Reaction Status Date / Time eucalyptus Allergy Severe Swelling Verified 10/22/21 12:18 of Lip/Tongue/Throat mint Allergy Severe Lips swell Verified 10/22/21 12:18 up orange Allergy Severe Swelling Verified 10/22/21 12:18 of Lip/Tongue/Throat Review of Systems <PARADISE Melton - Last Filed: 10/22/21 17:26> Review of Systems Narrative: General: denies fever, chills Head/Neck: denies headache, neck pain Eyes: denies visual changes, eye pain Cardio: denies chest pain, palpitations Respiratory: denies shortness of breath, cough GI: denies abdominal pain, nausea, vomiting, or diarrhea : denies dysuria, hematuria or flank pain MSK: denies new joint pain, muscle weakness or swelling Skin: denies rash, itching or wound Neuro: denies numbness, tingling, dizziness Psych: She denies acute suicidal ideation, homicidal ideation, previous or intended self-harm, audio or visual hallucinations, ingestion or intoxication Patient History <PARADISE Melton - Last Filed: 10/22/21 17:26> Medical History Acne (~2002) Acute pain of right shoulder Asthma Asthma Bilateral carpal tunnel syndrome Cervical somatic dysfunction DEVI III (cervical intraepithelial neoplasia grade III) with severe dysplasia (~09/06/18) COVID-19 tamiko gilbert Cranial somatic dysfunction Encounter for vitamin deficiency screening Fatigue Heart burn History of hemorrhage HPV (human papilloma virus) 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 Moderate cervical dysplasia (~10/29/19) depression associated with first hemorrhage, delivered, current hospitalization Rib pain on right side Scoliosis Segmental and somatic dysfunction of abdomen and other regions Segmental and somatic dysfunction of rib cage Stiff neck Stress incontinence Thoracic region somatic dysfunction Three previous spontaneous abortions (SAB) affecting care of mother, antepartum Upper extremity somatic dysfunction Surgical History Anesthesia H/O dilation and curettage (~2005) H/O LEEP (~10/29/19) History of dilatation and curettage (~07/2010) History of spinal fusion for scoliosis (~2003) Family History Mother No problems noted. Father Medication administered in error Grandfather Hepatic sclerosis Grandmother No problems noted. 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 General: Awake, alert, nontoxic, no cardiorespiratory distress Head/Neck: Atraumatic, neck supple Eyes: EOMI, conjunctiva normal Nose: nares patent, no rhinorrhea Mouth/Throat: moist mucus membranes, posterior pharynx without erythema or lesion Cardio: Regular rate and rhythm, no peripheral edema Respiratory: respirations unlabored without wheezing, stridor, or rales. No retractions, hypoxia or tachypnea GI: Abdomen soft, nontender to palpation x4 quadrants, no guarding or rebound tenderness MSK: Moves all extremities, neurovascularly intact, range of motion without deficit Skin: Normal capillary refill, no rash Neuro: Normal speech and cognition, normal gait Psych: Patient is anxious, tearful, A&O x3, denies any suicidal ideation or isabelle icidal ideation at this time, denies any substance abuse or ingestion, her speech is clear, she is interacting appropriately Initial Vital Signs Initial Vital Signs: Vital Signs Temperature 98.3 F 10/22/21 12:06 Pulse Rate 90 10/22/21 12:06 Respiratory Rate 18 10/22/21 12:06 Blood Pressure 138/100 H 10/22/21 12:06 Pulse Oximetry 97 10/22/21 12:06 Oxygen Delivery Method 10/22/21 12:06 <Olga Garcia DO - Last Filed: 10/23/21 07:31> Initial Vital Signs Initial Vital Signs: Vital Signs Temperature 98.3 F 10/22/21 12:06 Pulse Rate 90 10/22/21 12:06 Respiratory Rate 18 10/22/21 12:06 Blood Pressure 138/100 H 10/22/21 12:06 Pulse Oximetry 97 10/22/21 12:06 Oxygen Delivery Method 10/22/21 12:06 Course <PARADISE Melton - Last Filed: 10/22/21 17:26> Orders Ordered: ED Orders 10/22/21 12:33 Urine Drug Screen, Rapid Stat Urine Microscopic Stat 10/22/21 12:40 Acetaminophen Stat Complete Blood Count AUTO DIFF Stat Comprehensive Metabolic Panel Stat Ethanol (ETOH) Stat Free T4, Direct Thyroxine Stat Salicylate Stat Thyroid Stimulating Hormone Stat 10/22/21 13:32 [place] to [facility] [place] [facility] Stat 10/22/21 14:21 COVID19 -Nasal RAPID/Pre-Proc Stat Vital Signs Vital signs: Vital Signs - 8 hr 10/22/21 12:06 10/22/21 14:45 Temperature 98.3 F Pulse Rate 90 79 Respiratory Rate 18 18 Blood Pressure 138/100 H 119/73 Pulse Oximetry 97 96 Oxygen Delivery Method Room Air <Olga Garcia DO - Last Filed: 10/23/21 07:31> Orders Ordered: ED Orders 10/22/21 12:33 Urine Drug Screen, Rapid Stat Urine Microscopic Stat 10/22/21 12:40 Acetaminophen Stat Complete Blood Count AUTO DIFF Stat Comprehensive Metabolic Panel Stat Ethanol (ETOH) Stat Free T4, Direct Thyroxine Stat Salicylate Stat Thyroid Stimulating Hormone Stat 10/22/21 13:32 Consult to [facility] [place] Digital Cartographer Stat 10/22/21 14:21 COVID19 -Nasal RAPID/Pre-Proc Stat Vital Signs Vital signs: Vital Signs - 8 hr 10/22/21 12:06 10/22/21 14:45 Temperature 98.3 F Pulse Rate 90 79 Respiratory Rate 18 18 Blood Pressure 138/100 H 119/73 Pulse Oximetry 97 96 Oxygen Delivery Method Room Air MDM - Psych <Cynthia Hector [place], [facility] - Last Filed: 10/22/21 17:26> Lab Data Result diagrams: 10/22/21 12:40 10/22/21 12:40 Labs: Lab Results 10/22/21 10/22/21 10/22/21 Range/Units 12:33 12:33 12:40 WBC 6.2 (4.5-11.0) X10^3/uL RBC 4.78 (4.0-5.2) X10^6/uL Hgb 15.2 (12.0-16.0) g/dL Hct 44.3 (36-46) % MCV 92.6 (80-100) fL MCH 31.7 (26-34) PG MCHC 34.2 (30-36) % RDW 12.3 (11.6-14.8) % Plt Count 166 (150-400) X10^3/uL Neut % (Auto) 55.0 (50-75) % Lymph % (Auto) 30.6 (25-40) % Gilliam % (Auto) 9.6 (3-14) % Eos % (Auto) 4.0 (2-4) % Baso % (Auto) 0.8 (0-2) % Neut # (Auto) 3400 (0734-6545) /uL Lymph # (Auto) 1900 (2211-9812) /uL Gilliam # (Auto) 600 (0-900) /uL Eos # (Auto) 200 (0-450) /uL Baso # (Auto) 0 (0-100) /uL Sodium (137-145) mmol/L Potassium (3.4-5.1) mmol/L Chloride (98-107) mmol/L Carbon Dioxide (22-32) mmol/L BUN (7-17) mg/dL Creatinine (0.52-1.04) mg/dL Estimated GFR (>60) mL/min BUN/Creatinine Ratio (6-22) Glucose (70-100) mg/dL Calcium (8.4-10.2) mg/dL Total Bilirubin (0.2-1.3) mg/dL AST (14-36) IU/L ALT (<35) IU/L Alkaline Phosphatase (38-126) U/L Total Protein (6.3-8.2) g/dL Albumin (3.5-5.0) g/dL Globulin (1.7-4.1) g/dL Albumin/Globulin Ratio (1.0-2.8) TSH (0.47-4.68) uIU/mL Free T4 (0.78-2.19) ng/dL Urine RBC 1-5/hpf (0-5/HPF) Urine WBC 1-5/hpf (0-5/HPF) Ur Squamous Epith Cells 5-10 /hpf H (0-5/HPF) Urine Bacteria Many (>30) H (None) Ur Culture Indicated? Cult not indicated Salicylates (<20) mg/dL U Opiates 300ng/mL cut Negative (Negative) Ur Oxycodone Screen Negative (Negative) Urine Methadone Screen Negative (Negative) Acetaminophen (10-30) ug/mL Ur Barbiturates Screen Negative (Negative) U Tricyclic Antidepress Negative (Negative) Ur Phencyclidine Scrn Negative (Negative) Ur Amphetamines Screen Negative (Negative) U Methamphetamines Scrn Negative (Negative) Ur MDMA Scrn (Ecstasy) Negative (Negative) U Benzodiazepines Scrn Negative (Negative) Urine Cocaine Screen Negative (Negative) U Marijuana (THC) Screen Positive H (Negative) Ethyl Alcohol ( - 10) mg/dL SARS-CoV-2 (PCR) (Negative) 10/22/21 10/22/21 10/22/21 Range/Units 12:40 12:40 14:21 WBC (4.5-11.0) X10^3/uL RBC (4.0-5.2) X10^6/uL Hgb (12.0-16.0) g/dL Hct (36-46) % MCV (80-100) fL MCH (26-34) PG MCHC (30-36) % RDW (11.6-14.8) % Plt Count (150-400) X10^3/uL Neut % (Auto) (50-75) % Lymph % (Auto) (25-40) % Gilliam % (Auto) (3-14) % Eos % (Auto) (2-4) % Baso % (Auto) (0-2) % Neut # (Auto) (3778-1465) /uL Lymph # (Auto) (2296-2102) /uL Gilliam # (Auto) (0-900) /uL Eos # (Auto) (0-450) /uL Baso # (Auto) (0-100) /uL Sodium 137 (137-145) mmol/L Potassium 4.2 (3.4-5.1) mmol/L Chloride 105 (98-107) mmol/L Carbon Dioxide 26 (22-32) mmol/L BUN 14 (7-17) mg/dL Creatinine 0.78 (0.52-1.04) mg/dL Estimated GFR > 60 (>60) mL/min BUN/Creatinine Ratio 17.9 (6-22) Glucose 105 H (70-100) mg/dL Calcium 8.8 (8.4-10.2) mg/dL Total Bilirubin 0.5 (0.2-1.3) mg/dL AST 38 H (14-36) IU/L ALT 57 H (<35) IU/L Alkaline Phosphatase 98 (38-126) U/L Total Protein 7.9 (6.3-8.2) g/dL Albumin 4.6 (3.5-5.0) g/dL Globulin 3.3 (1.7-4.1) g/dL Albumin/Globulin Ratio 1.4 (1.0-2.8) TSH 1.21 (0.47-4.68) uIU/mL Free T4 1.09 (0.78-2.19) ng/dL Urine RBC (0-5/HPF) Urine WBC (0-5/HPF) Ur Squamous Epith Cells (0-5/HPF) Urine Bacteria (None) Ur Culture Indicated? Salicylates < 1.0 (<20) mg/dL U Opiates 300ng/mL cut (Negative) Ur Oxycodone Screen (Negative) Urine Methadone Screen (Negative) Acetaminophen < 10 (10-30) ug/mL Ur Barbiturates Screen (Negative) U Tricyclic Antidepress (Negative) Ur Phencyclidine Scrn (Negative) Ur Amphetamines Screen (Negative) U Methamphetamines Scrn (Negative) Ur MDMA Scrn (Ecstasy) (Negative) U Benzodiazepines Scrn (Negative) Urine Cocaine Screen (Negative) U Marijuana (THC) Screen (Negative) Ethyl Alcohol < 10 ( - 10) mg/dL SARS-CoV-2 (PCR) Negative (Negative) Point of Care Testing Test Results Negative Urine Dip Bedside Urine Glucose Negative Bedside Urine Bilirubin - Negative Bedside Urine Ketone - Negative Urine Specific Alger 1.030 Bedside Urine Occult Blood + Bedside Urine pH 6.0 Bedside Urine Protein + 30 Bedside Urine Urobilinogen - Negative Bedside Urine Nitrite - Negative Bedside Urine Leukocytes - Negative Esterase MDM Narrative Medical decision making narrative: This is a 36-year-old presents emergency department complaining of history of suicidality and concerns for anxiety attack earlier today where she [place] she did not want to be near her at the time. Patient denies any wishes to but states that she gets stressed out and is trying to interact with her , and she feels unloved and in a loveless marriage. Patient was started on Zoloft approximately three months ago, states that she is taking half of a tab daily, states that she has not increased her dose in starting it and she has had follow-up with Dr. Moncada since then. Patient has an upcoming appointment with her therapist tomorrow, social Work met with the patient, she was medically cleared for voluntary admission this is what she chooses. Patient denies audiovisual hallucinations, she is not intoxicated, and has a safety contract in place for her therapist appointment tomorrow. Please see social work's note. Although patient is emotional today, she is acting appropriately, denies any intent to harm herself or any other people. Patient is not suicidal currently and is future oriented. Medical screening exam is reassuring, at this time I do not see any evidence of acute toxicologic, metabolic, or infectious derangement that would explain the patient's presentation. Patient does not meet acuity for inpatient admission for psychiatric care at this time. Discussed having her follow-up with Dr. Moncada after her therapist appointment tomorrow for a medication evaluation and reconsideration of dosing of her SSRI. We discussed that she may benefit some increasing this another antidepressant altogether. Patient is appropriate and amenable to discharge home. Vital signs are stable on repeat examination is unremarkable. Patient has been informed of results. Patient has been given strict return to ER precautions for any new or worsening symptoms. Patient understands to follow up closely with outpatient providers as instructed. Patient understands plan and agrees to discharge home. All questions and concerns answered at this time. <Olga Garcia, DO - Last Filed: 10/23/21 07:31> Lab Data Labs: Lab Results 10/22/21 10/22/21 10/22/21 Range/Units 12:33 12:33 12:40 WBC 6.2 (4.5-11.0) X10^3/uL RBC 4.78 (4.0-5.2) X10^6/uL Hgb 15.2 (12.0-16.0) g/dL Hct 44.3 (36-46) % MCV 92.6 (80-100) fL MCH 31.7 (26-34) PG MCHC 34.2 (30-36) % RDW 12.3 (11.6-14.8) % Plt Count 166 (150-400) X10^3/uL Neut % (Auto) 55.0 (50-75) % Lymph % (Auto) 30.6 (25-40) % Gilliam % (Auto) 9.6 (3-14) % Eos % (Auto) 4.0 (2-4) % Baso % (Auto) 0.8 (0-2) % Neut # (Auto) 3400 (1420-1516) /uL Lymph # (Auto) 1900 (3207-7817) /uL Gilliam # (Auto) 600 (0-900) /uL Eos # (Auto) 200 (0-450) /uL Baso # (Auto) 0 (0-100) /uL Sodium (137-145) mmol/L Potassium (3.4-5.1) mmol/L Chloride (98-107) mmol/L Carbon Dioxide (22-32) mmol/L BUN (7-17) mg/dL Creatinine (0.52-1.04) mg/dL Estimated GFR (>60) mL/min BUN/Creatinine Ratio (6-22) Glucose (70-100) mg/dL Calcium (8.4-10.2) mg/dL Total Bilirubin (0.2-1.3) mg/dL AST (14-36) IU/L ALT (<35) IU/L Alkaline Phosphatase (38-126) U/L Total Protein (6.3-8.2) g/dL Albumin (3.5-5.0) g/dL Globulin (1.7-4.1) g/dL Albumin/Globulin Ratio (1.0-2.8) TSH (0.47-4.68) uIU/mL Free T4 (0.78-2.19) ng/dL Urine RBC 1-5/hpf (0-5/HPF) Urine WBC 1-5/hpf (0-5/HPF) Ur Squamous Epith Cells 5-10 /hpf H (0-5/HPF) Urine Bacteria Many (>30) H (None) Ur Culture Indicated? Cult not indicated Salicylates (<20) mg/dL U Opiates 300ng/mL cut Negative (Negative) Ur Oxycodone Screen Negative (Negative) Urine Methadone Screen Negative (Negative) Acetaminophen (10-30) ug/mL Ur Barbiturates Screen Negative (Negative) U Tricyclic Antidepress Negative (Negative) Ur Phencyclidine Scrn Negative (Negative) Ur Amphetamines Screen Negative (Negative) U Methamphetamines Scrn Negative (Negative) Ur MDMA Scrn (Ecstasy) Negative (Negative) U Benzodiazepines Scrn Negative (Negative) Urine Cocaine Screen Negative (Negative) U Marijuana (THC) Screen Positive H (Negative) Ethyl Alcohol ( - 10) mg/dL SARS-CoV-2 (PCR) (Negative) 10/22/21 10/22/21 10/22/21 Range/Units 12:40 12:40 14:21 WBC (4.5-11.0) X10^3/uL RBC (4.0-5.2) X10^6/uL Hgb (12.0-16.0) g/dL Hct (36-46) % MCV (80-100) fL MCH (26-34) PG MCHC (30-36) % RDW (11.6-14.8) % Plt Count (150-400) X10^3/uL Neut % (Auto) (50-75) % Lymph % (Auto) (25-40) % Gilliam % (Auto) (3-14) % Eos % (Auto) (2-4) % Baso % (Auto) (0-2) % Neut # (Auto) (6089-4764) /uL Lymph # (Auto) (9346-8080) /uL Gilliam # (Auto) (0-900) /uL Eos # (Auto) (0-450) /uL Baso # (Auto) (0-100) /uL Sodium 137 (137-145) mmol/L Potassium 4.2 (3.4-5.1) mmol/L Chloride 105 (98-107) mmol/L Carbon Dioxide 26 (22-32) mmol/L BUN 14 (7-17) mg/dL Creatinine 0.78 (0.52-1.04) mg/dL Estimated GFR > 60 (>60) mL/min BUN/Creatinine Ratio 17.9 (6-22) Glucose 105 H (70-100) mg/dL Calcium 8.8 (8.4-10.2) mg/dL Total Bilirubin 0.5 (0.2-1.3) mg/dL AST 38 H (14-36) IU/L ALT 57 H (<35) IU/L Alkaline Phosphatase 98 (38-126) U/L Total Protein 7.9 (6.3-8.2) g/dL Albumin 4.6 (3.5-5.0) g/dL Globulin 3.3 (1.7-4.1) g/dL Albumin/Globulin Ratio 1.4 (1.0-2.8) TSH 1.21 (0.47-4.68) uIU/mL Free T4 1.09 (0.78-2.19) ng/dL Urine RBC (0-5/HPF) Urine WBC (0-5/HPF) Ur Squamous Epith Cells (0-5/HPF) Urine Bacteria (None) Ur Culture Indicated? Salicylates < 1.0 (<20) mg/dL U Opiates 300ng/mL cut (Negative) Ur Oxycodone Screen (Negative) Urine Methadone Screen (Negative) Acetaminophen < 10 (10-30) ug/mL Ur Barbiturates Screen (Negative) U Tricyclic Antidepress (Negative) Ur Phencyclidine Scrn (Negative) Ur Amphetamines Screen (Negative) U Methamphetamines Scrn (Negative) Ur MDMA Scrn (Ecstasy) (Negative) U Benzodiazepines Scrn (Negative) Urine Cocaine Screen (Negative) U Marijuana (THC) Screen (Negative) Ethyl Alcohol < 10 ( - 10) mg/dL SARS-CoV-2 (PCR) Negative (Negative) Point of Care Testing Test Results Negative Urine Dip Bedside Urine Glucose Negative Bedside Urine Bilirubin - Negative Bedside Urine Ketone - Negative Urine Specific Alger 1.030 Bedside Urine Occult Blood + Bedside Urine pH 6.0 Bedside Urine Protein + 30 Bedside Urine Urobilinogen - Negative Bedside Urine Nitrite - Negative Bedside Urine Leukocytes - Negative Esterase Discharge Plan Departure Patient Disposition: Home Clinical Impression: Anxiety attack, Feeling suicidal Instructions: Depression, Anxiety Disorders, DI for Suicidal Ideation-Adult Activity Restrictions/Additional Instructions: *You have been diagnosed with suicidal thoughts with anxiety and depressive component. Thank you for coming in and sharing your stressors, sorry for has your feeling. Please schedule a follow-up appointment with Dr. Moncada. You must promise to come directly to the emergency department if you have any worsening feelings of suicide, depression, or anxiety enough to harm yourself or others. Please have your therapy appointment tomorrow and discuss your medications and how to increase them. If they are not a psychiatrist, then please schedule follow-up with Dr. Moncada for medication adjustment and if you feel safe increasing your sertraline and then you can go up to 25 mg daily until you have your appointment with him. Please focus your priorities on yourself wellness and self-care. Focus on trying to meet your needs without consideration for how your meets them. Please stay hydrated, when you encounter a stressful scenario, please try to slow down your response and take deep breaths while you formulate your coping mechanism. Please prioritize safety 1st and foremost, the safety of your self and others. Please come back to the emergency department if you do not feel safe at home. Please follow-up with the resources that you have been given, thank you for trusting us with your care, I hope you feel better and can rest tonight. Your lab work is unremarkable, we will call you for COVID test is positive. I hope you feel better soon. *What to do: *Please continue to take your regular medications as directed. [ ] New medication prescriptions sent to your pharmacy: [ ] [ ] New medication written as a paper prescription [x ] No new medications given *Please follow up with your primary care provider in 2-3 days, call for an appointment. Let them know you were seen in the Emergency Department and that we asked that you be seen for follow-up. We will electronically transmit a record of today's note if your PCP is in our system *If you do not have a primary care provider please contact [phone] to establish care with one of the [facility] primary care providers. *Return to Emergency Department if you should have any new, worsening or concerning symptoms, such as [fever greater than 101F, chills, worsening pain, persistent vomiting or other bothersome symptoms] Prescriptions: No Action valacyclovir 500 mg tablet 500 mg PO .COMPLEX Qty: 60 1RF Rx Instructions: 500 mg PO BID x 7 days for outbreak, 500 mg PO daily clobetasol 0.05 % cream 1 applic topical DAILY Qty: 15 0RF Rx Instructions: Apply 0.5gm topically to external genitalia once daily for 2 weeks, then follow up with clinic. budesonide-formoterol [Symbicort] 80-4.5 mcg/actuation HFA aerosol inhaler 2 puff inhalation BID Qty: 10.2 11RF Rx Instructions: Start with 2 puffs once daily and increase to BID if needed famotidine [Acid Supervisor Policy Change Clerks (famotidine)] 20 mg tablet 20 mg PO BID 30 Days Qty: 60 5RF sertraline 25 mg tablet 25 mg PO DAILY Qty: 30 5RF Rx Instructions: start with 1/2 tab daily for two weeks and increase to 1 tab daily if needed. Referrals: [facility] [Provider Group] Finesse Moncada DO [Primary Care Provider] - Visit Report Forms: Patient Portal/API <Olga Garcia DO - Last Filed: 10/23/21 07:31> Cosign ED Attending Raymundo Attestation: I was immediately available in the department for consultation. Documentation has been reviewed. I agree with assessment and plan.
[2021-10-22 13:37] LABS: Thyroid Stimulating Hormone 1.21 uIU/mL (0.47-4.68)
[2021-10-22 14:45] VITALS: BP 119/73; PULSE 79; RESP 18; O2SAT 96
[2021-10-22 14:51] LABS: COVID19 -Nasal RAPID Negative (Negative)
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
== END 2021-10-22 14:57 | disposition home or self-care (01) ==
PROVIDERS: Emergency Medicine; Emergency Provider Nurse Practitioner Critical Care Medicine; Family Provider Family Medicine; PCP Family Medicine
DX: R45.851 Suicidal ideations (principal); F41.9 Anxiety disorder, unspecified; Z20.822 Contact with and (suspected) exposure to COVID-19
CPT/HCPCS: 36415; 80053; 80305; 80320; 80329; 81003; 81015; 81025; 84439; 84443; 85025; 87635; 99284; C9803; G0480

== ENCOUNTER 2021-11-08 14:13 | Outpatient (RCR) | payer OTHER, MEDICAID, SELFPAY ==
--- NOTE | 2021-11-08 17:20 | PT.OIE ---
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 Moderate cervical dysplasia (~10/29/19) depression associated with first hemorrhage, delivered, current hospitalization Rib pain on right side Scoliosis Segmental and somatic dysfunction of abdomen and other regions Segmental and somatic dysfunction of rib cage Stiff neck Stress incontinence Thoracic region somatic dysfunction Three previous spontaneous abortions (SAB) affecting care of mother, antepartum Upper extremity somatic dysfunction Past Surgical History (Last Reviewed 10/22/21 @ 16:05 by PARADISE Melton) Anesthesia H/O dilation and curettage (~2005) H/O LEEP (~10/29/19) History of dilatation and curettage (~07/2010) History of spinal fusion for scoliosis (~2003) Visit Care Team Role Provider Type Finesse Moncada DO Attending Provider Physician Family Provider Primary Care Provider Referring Provider Specialty: Family Practice Address: [address] [place] [address], [facility] Email: Physical Therapy Initial Evaluation PT-OP-A Visit Information Start: 10/12/21 19:15 Freq: Status: Active Protocol: Document 11/08/21 14:37 LRN (Rec: 11/08/21 17:20 LRN [id number]) Out-Patient Physical Therapy Visit Information Visit Information Visit Type Initial Evaluation Visit Start Time 14:37 Visit Stop Time 15:16 Total Visit Minutes 39 Visit Number 1 Evaluation Information Evaluation Date 11/08/21 Precautions Precautions Full spinal fusion, depression had ER visit on 10/22/21 due to anxiety attack. PT-OP-B Current Condition Start: 10/12/21 19:15 Freq: Status: Active Protocol: Document 11/08/21 14:37 LRN (Rec: 11/08/21 17:20 LRN [id number]) Current Condition History of Current Condition Onset Date Few months before childbirth and worsened. Current Complaints Stress incontinence. History of Current Condition 5, Parity 1. Stress incontinence started a few months before childbirth of her 1st child at [facility]. Pt was high risk due to hips wouldn't open because spine fused completely. She states her baby boy's was traumatic and ended up her having to have emergency due to HBP after 14 hrs of labor trying to deliver naturally. Baby boy was 8#4oz and is now 15 months old. Prior Treatments and Tests Kegel ex's were given by . Alternative treatments refused by pt, and pt requested PT. Developmental History Developmental History 19 (full spine) Spinal Fusion 2003 due to scoliosis, no issues since. No limitation in moving/bending, can lift 215#. Back and chest loss of sensation for 4 yrs, but now is normal. Treatment Goals Patient/Caregiver Goals Treatment goal: minimize incontinence with coughing or sneezing. Current Functional Impairments (Reported) Functional Limitations- ADL's Urinary leakage with coughing or sneezing. Wears panty liners (4-5) daily. Denies urinary leakage with lifting of heavy weights. Personal Factors Other Personal Factors That May Effect 19 (full spine) Spinal Fusion Therapy/Recovery 2003 due to scoliosis. Baby boy is 15 months old via C- section. 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 Uncontrolled Depression. PT-OP-C Subjective Start: 10/12/21 19:15 Freq: Status: Active Protocol: Document 11/08/21 14:37 LRN (Rec: 11/08/21 17:20 LRN [id number]) Patient Questionnaires Pelvic Pain and Urgency/Frequency Patient Symptom Scale Pelvic Pain Score 14 PT-OP-I Pelvic Floor Start: 10/12/21 19:15 Freq: Status: Active Protocol: Document 11/08/21 14:37 LRN (Rec: 11/08/21 17:20 LRN [id number]) Pelvic Floor Assessment Urine Pelvic Floor Surgery No Urinary Symptoms Pain Other Urinary Symptoms Urinary leakage with coughing, laughing or sneezing, or vigorous ex (running). Leakage Size Large Leakage Cause Cough,Sneeze Leaks Per Day all day, wets underwear and outerwear Voiding Frequency 5-7x/day Nocturia 1 Pads Used In 24 Hours 3-4 Urine Pad Type Panty Liner Pelvic Clock Pelvic Clock 6-9 Tenderness Perineal Descent Resting Absent Bearing Absent Contraction Ability Manual Muscle Testing Left 3 Manual Muscle Testing Right 3 Manual Muscle Testing Anterior 3 Manual Muscle Testing Posterior 3 Muscle Endurance (Seconds) 10 Number of Quick Contractions In 10 5 Seconds PT-OP-J Posture/Palpation/Skin Start: 10/12/21 19:15 Freq: Status: Active Protocol: Document 11/08/21 14:37 LRN (Rec: 11/08/21 17:20 LRN [id number]) Posture Evaluation Position Standing Head/C-Spine Posture Forward Head Comments Posture Comments L shoulder is low, FB hips 15 deg's, straight spine with mild Dowagers Hump, Slightly low on R Iliac Crest and deep on R SIJ. PT-OP-K Range of Motion Start: 10/12/21 19:15 Freq: Status: Active Protocol: Document 11/08/21 14:37 LRN (Rec: 11/08/21 17:20 LRN [id number]) Lumbar Spine Range of Motion Lumbar Spine Active Degrees Comments PT has lisa down spine; therefore no assessment done. Hip Goniometric Range of Motion Hip Right Passive Testing Position Supine Flexion w/Knee Flexed 110 Abduction 35 Internal Rotation 10 External Rotation 65 Left Passive Testing Position Supine Flexion w/Knee Flexed 120 Abduction 25 Internal Rotation 20 External Rotation 50 PT-OP-M Strength Start: 10/12/21 19:15 Freq: Status: Active Protocol: Document 11/08/21 14:37 LRN (Rec: 11/08/21 17:20 LRN [id number]) Trunk Strength Trunk Manual Muscle Testing Core Stabilization Pt has mild loss of core stability with MMT of hip flex and difficulty with core stab for rotation with MMT of hip AB/AD's. Hand Casing Flusher/Pinch Strength Hand Dominance Hand Dominance Right Hip Strength Hip Manual Muscle Testing Right Comments 5/5 Left Comments 5/5 PT-OP-Q Treatments Start: 10/12/21 19:15 Freq: Status: Active Protocol: Document 11/08/21 14:37 LRN (Rec: 11/08/21 17:20 LRN [id number]) Self-Care/Home Management Treatment Education Patient Education Home Exercise Program Other Education Discussed results of evaluation, goals, and plan of care (POC). Pt agreeable to goals and POC. Issued, discussed, & reviewed Bladder Diary for pt to complete over the next 7 days. Explained how to fill out diary and counting of urination times. Activities Self-Care/Home Management Activities Issued & reviewed HEP: Kegels for Aggravator strengthening. I/S pt in HEP: Happy Baby Pose stretch. PT-OP-T Assessment and Plan Start: 10/12/21 19:15 Freq: Status: Active Protocol: Document 11/08/21 14:37 LRN (Rec: 11/08/21 17:20 LRN [id number]) Physical Therapy Assessment Rehab Potential Rehabilitation Potential Good Evaluation Complexity Number of Personal Factors/Comorbidities 1-2 Number of Body Systems Impaired 4 or More Clinical Presentation at Evaluation Evolving Impairments Impairments ROM,Soft Tissue Mobility, Strength,Tone Other Impairments Stress urinary incontinence Goals Two Impairment Stress UI with urinary leakage with coughing or sneezing Impairment Wears panty liners (4-5) daily . Short Term Goal (STG) Decrease use of panty liners to 3 or less daily. STG Duration 12/14/21 Blueprinting And Photocopy Supervisor Goal (LTG) Minimize incontinence with coughing or sneezing, use of 2 or less pantiliners daily. LTG Duration 01/18/22 One Impairment Lacks appropriate self care HEP Short Term Goal (STG) Education in core/canister pressures and strategies to decrease PF pressures with coughing. STG Duration 11/16/21 Blueprinting And Photocopy Supervisor Goal (LTG) Pt will be independent in a self care HEP to manage her stress incontinence. LTG Duration 01/18/22 Assessment Summary Assessment Pt presents with stress incontinence due to PF tightness & tenderness at 6-8 of PF clock. Pt has tightness of hip R ER, L IR/AD. She demonstrates decreased core stability (worse with rotation ) and poor TA awareness. The pt will benefit from skilled physical therapy to improve hip mobility, improve awareness to relax and normalize PF ms tone, and improve core stability, in order to achieve the above stated goals. Physical Therapy Plan Frequency and Duration Frequency of Treatment 1x/Week Plan of Care Start Date 11/08/21 Plan of Care End Date 01/18/22 Therapeutic Interventions Therapeutic Interventions Home Exercise Program,Manual Therapy,Patient/Caregiver Education,Self-Care/Home Management,Soft Tissue Mobilization,Therapeutic Activities,Therapeutic Exercises Modalities Cold Pack/Ice Massage,Hot Packs Next Visit Focus/Plan Next Note Type Treatment Note Next Visit Plan Assess abdominal and scar mobility. Assess bladder diary and bowel involvement with recommendations as appropriate. HEP: PF stretching (with ex and wand, awareness training to relax PF , and relaxation techniques, Hip stretch (R ER, L IR/AB) & core strengthening (rotation, TA). Education in proper methods for transfer with coordination of breathing. Manual therapy for PF stretching (PF clock 6-8).
--- NOTE | 2021-11-08 17:21 | PT.OPPOC ---
Physical, Occupational & Speech Therapy At [facility] Current Diagnoses Stress incontinence (female) (male) (11/08/21) Visit Care Team Role Provider Type Finesse Moncada DO Attending Provider Physician Family Provider Primary Care Provider Referring Provider Specialty: Family Practice Address: [address] [place] [address], [id number] Email: Plan Of Care PT-OP-T Assessment and Plan Start: 10/12/21 19:15 Freq: Status: Active Protocol: Document 11/08/21 14:37 LRN (Rec: 11/08/21 17:20 LRN [id number]) Physical Therapy Assessment Rehab Potential Rehabilitation Potential Good Evaluation Complexity Number of Personal Factors/Comorbidities 1-2 Number of Body Systems Impaired 4 or More Clinical Presentation at Evaluation Evolving Impairments Impairments ROM,Soft Tissue Mobility, Strength,Tone Other Impairments Stress urinary incontinence Goals Two Impairment Stress UI with urinary leakage with coughing or sneezing Impairment Wears panty liners (4-5) daily . Short Term Goal (STG) Decrease use of panty liners to 3 or less daily. STG Duration 12/14/21 Longterm Goal (LTG) Minimize incontinence with coughing or sneezing, use of 2 or less pantiliners daily. LTG Duration 01/18/22 One Impairment Lacks appropriate self care HEP Short Term Goal (STG) Education in core/canister pressures and strategies to decrease PF pressures with coughing. STG Duration 11/16/21 Customer Quality Engineer Goal (LTG) Pt will be independent in a self care HEP to manage her stress incontinence. LTG Duration 01/18/22 Assessment Summary Assessment Pt presents with stress incontinence due to PF tightness & tenderness at 6-8 of PF clock. Pt has tightness of hip R ER, L IR/AD. She demonstrates decreased core stability (worse with rotation ) and poor TA awareness. The pt will benefit from skilled physical therapy to improve hip mobility, improve awareness to relax and normalize PF ms tone, and improve core stability, in order to achieve the above stated goals. Physical Therapy Plan Frequency and Duration Frequency of Treatment 1x/Week Plan of Care Start Date 11/08/21 Plan of Care End Date 01/18/22 Therapeutic Interventions Therapeutic Interventions Home Exercise Program,Manual Therapy,Patient/Caregiver Education,Self-Care/Home Management,Soft Tissue Mobilization,Therapeutic Activities,Therapeutic Exercises Modalities Cold Pack/Ice Massage,Hot Packs Next Visit Focus/Plan Next Note Type Treatment Note Next Visit Plan Assess abdominal and scar mobility. Assess bladder diary and bowel involvement with recommendations as appropriate. HEP: PF stretching (with ex and wand, awareness training to relax PF , and relaxation techniques, Hip stretch (R ER, L IR/AB) & core strengthening (rotation, TA). Education in proper methods for transfer with coordination of breathing. Manual therapy for PF stretching (PF clock 6-8). Plan of Care Dates Plan of Care Start Date 11/08/21 Plan of Care End Date 01/18/22 Electronically Signed by: Ellen De Los Santos, PT 11/08/21 9915 If you are in agreement with this Plan of Care, please return a signed and dated copy. I have reviewed this Plan of Care and certify that the skilled therapy services above are required to meet the patient?s needs. Physician Signature Date Printed Name and Credentials Clinical Instructor Signature Printed Name and Credentials
--- NOTE | 2021-12-21 12:15 | PT.OPDS ---
Current Diagnoses Stress incontinence (female) (male) (11/08/21) Visit Care Team Role Provider Type Gil Moncada DO Attending Provider Physician Family Provider Primary Care Provider Referring Provider Specialty: Family Practice Address: [address] [place] [address], [facility] Email: Visit Number Visit Number 1 Discharge Summary PT-OP-B Current Condition Start: 10/12/21 19:15 Freq: Status: Active Protocol: Document 11/08/21 14:37 LRN (Rec: 11/08/21 17:20 LRN [id number]) Current Condition History of Current Condition Onset Date Few months before childbirth and worsened. Current Complaints Stress incontinence. History of Current Condition 5, Parity 1. Stress incontinence started a few months before childbirth of her 1st child at [facility]. Pt was high risk due to hips wouldn't open because spine fused completely. She states her baby boy's was traumatic and ended up her having to have emergency due to HBP after 14 hrs of labor trying to deliver naturally. Baby boy was 8#4oz and is now 15 months old. Prior Treatments and Tests Kegel ex's were given by MD. Alternative treatments refused by pt, and pt requested PT. Developmental History Developmental History 19 (full spine) Spinal Fusion 2003 due to scoliosis, no issues since. No limitation in moving/bending, can lift 215#. Back and chest loss of sensation for 4 yrs, but now is normal. Treatment Goals Patient/Caregiver Goals Treatment goal: minimize incontinence with coughing or sneezing. Current Functional Impairments (Reported) Functional Limitations- ADL's Urinary leakage with coughing or sneezing. Wears panty liners (4-5) daily. Denies urinary leakage with lifting of heavy weights. Personal Factors Other Personal Factors That May Effect 19 (full spine) Spinal Fusion Therapy/Recovery 2003 due to scoliosis. Baby boy is 15 months old via C- section. 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 Uncontrolled Depression. PT-OP-C Subjective Start: 10/12/21 19:15 Freq: Status: Active Protocol: Document 11/08/21 14:37 LRN (Rec: 11/08/21 17:20 LRN [id number]) Patient Questionnaires Pelvic Pain and Urgency/Frequency Patient Symptom Scale Pelvic Pain Score 14 PT-OP-I Pelvic Floor Start: 10/12/21 19:15 Freq: Status: Active Protocol: Document 11/08/21 14:37 LRN (Rec: 11/08/21 17:20 LRN [id number]) Pelvic Floor Assessment Urine Pelvic Floor Surgery No Urinary Symptoms Pain Other Urinary Symptoms Urinary leakage with coughing, laughing or sneezing, or vigorous ex (running). Leakage Size Large Leakage Cause Cough,Sneeze Leaks Per Day all day, wets underwear and outerwear Voiding Frequency 5-7x/day Nocturia 1 Pads Used In 24 Hours 3-4 Urine Pad Type Panty Liner Pelvic Clock Pelvic Clock 6-9 Tenderness Perineal Descent Resting Absent Bearing Absent Contraction Ability Manual Muscle Testing Left 3 Manual Muscle Testing Right 3 Manual Muscle Testing Anterior 3 Manual Muscle Testing Posterior 3 Muscle Endurance (Seconds) 10 Number of Quick Contractions In 10 5 Seconds PT-OP-J Posture/Palpation/Skin Start: 10/12/21 19:15 Freq: Status: Active Protocol: Document 11/08/21 14:37 LRN (Rec: 11/08/21 17:20 LRN [id number]) Posture Evaluation Position Standing Head/C-Spine Posture Forward Head Comments Posture Comments L shoulder is low, FB hips 15 deg's, straight spine with mild Dowagers Hump, Slightly low on R Iliac Crest and deep on R SIJ. PT-OP-K Range of Motion Start: 10/12/21 19:15 Freq: Status: Active Protocol: Document 11/08/21 14:37 LRN (Rec: 11/08/21 17:20 LRN [id number]) Lumbar Spine Range of Motion Lumbar Spine Active Degrees Comments PT has lisa down spine; therefore no assessment done. Hip Goniometric Range of Motion Hip Right Passive Testing Position Supine Flexion w/Knee Flexed 110 Abduction 35 Internal Rotation 10 External Rotation 65 Left Passive Testing Position Supine Flexion w/Knee Flexed 120 Abduction 25 Internal Rotation 20 External Rotation 50 PT-OP-M Strength Start: 10/12/21 19:15 Freq: Status: Active Protocol: Document 11/08/21 14:37 LRN (Rec: 11/08/21 17:20 LRN [id number]) Trunk Strength Trunk Manual Muscle Testing Core Stabilization Pt has mild loss of core stability with MMT of hip flex and difficulty with core stab for rotation with MMT of hip AB/AD's. Hand Director Of Strategic Communications/Pinch Strength Hand Dominance Hand Dominance Right Hip Strength Hip Manual Muscle Testing Right Comments 08/23 Left Comments 08/23 PT-OP-T Assessment and Plan Start: 10/12/21 19:15 Freq: Status: Active Protocol: Document 12/21/21 12:11 LRN (Rec: 12/21/21 12:15 LRN [id number]) Physical Therapy Assessment Goals Two Impairment Stress UI with urinary leakage with coughing or sneezing Impairment Wears panty liners (4-5) daily . Short Term Goal (STG) Decrease use of panty liners to 3 or less daily. STG Duration 12/14/21 (12/21/21: NOT MET, lack of pt attendance). Learning Specialist Goal (LTG) Minimize incontinence with coughing or sneezing, use of 2 or less pantiliners daily. LTG Duration 01/18/22 (12/21/21: NOT MET, lack of pt attendance). One Impairment Lacks appropriate self care HEP Short Term Goal (STG) Education in core/canister pressures and strategies to decrease PF pressures with coughing. STG Duration 11/16/21 (12/21/21: NOT MET, lack of pt attendance). Learning Specialist Goal (LTG) Pt will be independent in a self care HEP to manage her stress incontinence. LTG Duration 01/18/22 (12/21/21: NOT MET, lack of pt attendance). Assessment Summary Assessment Pt was seen for her initial evaluation on 11/08/21. She cancelled 2 visits and DNS for 3rd visit; therefore the pt is being discharged from therapy due to lack of attendance. Physical Therapy Plan Discharge Physical Therapy Discharge Reasons No Longer Attending PT Discharge Comments Pt did not attend therapy after her initial evaluation. Pt is being discharged due to lack of attendance. Thank you for your referral.
== END 2021-12-26 13:53 ==
LOC: PHYS 14:13
PROVIDERS: Family Provider Family Medicine; PCP Family Medicine; Referring Provider Family Medicine; Visit Provider Family Medicine
DX: N39.3 Stress incontinence (female) (male) (principal)
CPT/HCPCS: 97162; 97535

== ENCOUNTER 2022-03-27 20:57 | Emergency (ER) | payer OTHER, MEDICAID, SELFPAY ==
[2022-03-27 21:08] VITALS: BP 135/91; PULSE 99; RESP 15; TEMP 36.1; O2SAT 99; BMI 33.9
[2022-03-28] MEDS: TET,DIPH,PERTUSS(ACELL),VAC/PF 0.5 ML SYRINGE IM (00:16)
--- NOTE | 2022-03-28 00:19 | ED_ITS ---
HPI - Wound/Laceration General Chief Complaint: Wound/Laceration Stated Complaint: cut ring finger Time Seen by Provider: 03/28/22 00:19 Source: patient Mode of arrival: Ambulatory History of Present Illness HPI narrative: Otherwise healthy 36-year-old woman was cutting vegetables the serrated relatively clean knife slipped and she has a 1 cm laceration on the palmar surface of her left 4th finger over the PIP crease. There is some bruising, she is neurovascularly intact and there does not appear to be any tendon injury. She is no other complaints today. She is not currently up-to-date on her tetanus shot Related Data Previous Rx's Medication Instructions Recorded valacyclovir 500 mg tablet 500 mg PO .COMPLEX History of 07/19/20 genital herpes #60 tabs sertraline 25 mg tablet 25 mg PO DAILY #30 tabs 08/02/21 clobetasol 0.05 % topical cream 1 applic topical DAILY #15 grams 08/28/21 Symbicort 80 mcg-4.5 mcg/actuation 2 puff inhalation BID #10.2 grams 09/07/21 HFA aerosol inhaler (budesonide-formoterol) famotidine 20 mg tablet (Acid 20 mg PO BID heartburn 30 days #60 09/10/21 Diagnostic Cardiac Sonographer (famotidine)) tabs Allergies Allergy/AdvReac Type Severity Reaction Status Date / Time eucalyptus Allergy Severe Swelling Verified 10/22/21 12:18 of Lip/Tongue/Throat mint Allergy Severe Lips swell Verified 10/22/21 12:18 up orange Allergy Severe Swelling Verified 10/22/21 12:18 of Lip/Tongue/Throat Review of Systems Review of Systems Narrative: Remainder of complete review of systems is otherwise unremarkable except for that included in the HPI. 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 Moderate cervical dysplasia (~10/29/19) depression associated with first hemorrhage, delivered, current hospitalization Rib pain on right side Scoliosis Segmental and somatic dysfunction of abdomen and other regions Segmental and somatic dysfunction of rib cage Stiff neck Stress incontinence Thoracic region somatic dysfunction Three previous spontaneous abortions (SAB) affecting care of mother, antepartum Upper extremity somatic dysfunction Surgical History Anesthesia H/O dilation and curettage (~2005) H/O LEEP (~10/29/19) History of dilatation and curettage (~07/2010) History of spinal fusion for scoliosis (~2003) Family History Mother No problems noted. Father Medication administered in error Grandfather Hepatic sclerosis Grandmother No problems noted. 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 [place] needs: No Smoking Status: Unknown if ever smoked Tobacco: How many years used: 15 second hand exposure: No alcohol intake: never substance use type: does not use Smoking Status: Unknown if ever smoked alcohol intake frequency: holidays/special occasions only Substance Use Type: marijuana Exam Initial Vital Signs Initial Vital Signs: Vital Signs Temperature 97.0 F L 03/27/22 21:08 Pulse Rate 99 H 03/27/22 21:08 Respiratory Rate 15 03/27/22 21:08 Blood Pressure 135/91 H 03/27/22 21:08 Pulse Oximetry 99 03/27/22 21:08 Oxygen Delivery Method 03/27/22 21:08 General: Alert appropriate in no acute distress Respiratory: Able to speak in full sentences, no obvious respiratory distress Skin: No obvious rashes, warm and dry Neurologic: Grossly intact no obvious asymmetries or abnormalities Psych: appropriate insight and affect, cooperative Extremity: Right hand is cleaned, the wound is explored. 1 cm over the joint crease with no complications. Procedures Laceration Repair Right hand, 4th finger: Time of procedure: 00:25 Site: hand Side (If applicable): right Size (cm): 1 Description: linear Depth: simple, single layer Local Anesthetic: lidocaine 2% Amount of anesthesia used (mL): 2 Pre-repair: wound explored and deep structures intact Skin layer closed with: nylon Skin layer suture size: 4-0 Number of sutures: 1 Technique: horizontal mattress Course Orders Ordered: Discontinued Medications Diphtheria/Tetanus/Acell Pertussis (Tet,Diph,Pertuss(Acell),Vac/Pf 0.5 Ml Syringe) 0.5 ml IM .ONCE ONE Stop: 03/28/22 00:08 Last Admin: 03/28/22 00:16 Dose: 0.5 ml Documented By: MATTHEW Vital Signs Vital signs: Vital Signs - 8 hr 03/27/22 21:08 Temperature 97.0 F L Pulse Rate 99 H Respiratory Rate 15 Blood Pressure 135/91 H Pulse Oximetry 99 Oxygen Delivery Method Room Air MDM - Wound/Laceration MDM Narrative Medical decision making narrative: 36-year-old woman with a minor laceration to palmar surface of the right 4th finger. A single horizontal mattress sutures placed without complication as the wound is in the joint crease. Recommend suture removal in 7 days. Keeping the wound clean and dry. Tetanus status is updated. Questions are answered patient is safe for discharge home Discharge Plan Departure Patient Disposition: Home Clinical Impression: Finger laceration Qualifiers: Encounter type: initial encounter Finger: ring finger Damage to nail status: without damage Foreign body presence: without foreign body Laterality: right Qualified Code(s): S61.214A - Laceration without foreign body of right ring finger without damage to nail, initial encounter Instructions: DI for Minor Laceration Activity Restrictions/Additional Instructions: Thank you for coming in today Put in a single stitch to help the wound heal more cleanly on your right hand. This stitch will need to be removed on or about April 04. Do keep the area covered, using antibiotic ointment will be helpful. If you notice increasing redness, pain, drainage, difficulty in bending the finger or new findings you do need to return to the ER. Prescriptions: No Action valacyclovir 500 mg tablet 500 mg PO .COMPLEX Qty: 60 1RF Rx Instructions: 500 mg PO BID x 7 days for outbreak, 500 mg PO daily clobetasol 0.05 % cream 1 applic topical DAILY Qty: 15 0RF Rx Instructions: Apply 0.5gm topically to external genitalia once daily for 2 weeks, then follow up with clinic. budesonide-formoterol [Symbicort] 80-4.5 mcg/actuation HFA aerosol inhaler 2 puff inhalation BID Qty: 10.2 11RF Rx Instructions: Start with 2 puffs once daily and increase to BID if needed famotidine [Acid Diagnostic Cardiac Sonographer (famotidine)] 20 mg tablet 20 mg PO BID 30 Days Qty: 60 5RF sertraline 25 mg tablet 25 mg PO DAILY Qty: 30 5RF Rx Instructions: start with 1/2 tab daily for two weeks and increase to 1 tab daily if needed. Referrals: Gil Moncada DO [Primary Care Provider] -
[2022-03-28] MEDS: LIDOCAINE 2% INJ SDV 5 ML (01:17)
[2022-03-28] MEDS: BACITRACIN OINT 0.9 GM PCKT 1 APPLIC TOP (01:17)
[2022-03-28 01:20] VITALS: BP 132/90; PULSE 90; RESP 16; O2SAT 99
== END 2022-03-28 01:21 | disposition home or self-care (01) ==
PROVIDERS: Emergency Provider Emergency Medicine; Family Provider Family Medicine; PCP Family Medicine
DX: S61.214A Laceration without foreign body of right ring finger without damage to nail, initial encounter (principal); W26.0XXA Contact with knife, initial encounter; Z23 Encounter for immunization
CPT/HCPCS: 12001; 90471; 99283; 90715

== ENCOUNTER → 2022-07-18 14:30 | Outpatient (CLI) | payer OTHER, MEDICAID, SELFPAY | PROVIDERS: PCP Family Medicine; Referring Provider Family Medicine; Visit Provider Family Medicine | DX: E04.9 Nontoxic goiter, unspecified (principal) | CPT/HCPCS: 36415; 84443 ==

== ENCOUNTER → 2022-08-08 12:21 | Outpatient (CLI) | payer OTHER, MEDICAID, SELFPAY ==
--- NOTE | 2022-08-08 12:22 | DI.US.S_ITS ---
PROCEDURE: US THYROID INDICATIONS: thyroid goiter TECHNIQUE: Real-time scanning was performed of the thyroid gland, with image documentation. COMPARISON: None. FINDINGS: Right: Thyroid lobe measures 4.8 x 1.5 x 2.0 cm, and is homogeneous in echotexture. Left: Thyroid lobe measures 4.7 x 1.5 x 1.7 cm, and is homogenous in echotexture. Isthmus: 3 mm thick. Nodule number: 1 Location: Right inferior Size: 1.1 x 0.6 x 0.9 cm. Composition: Predominantly cystic Echogenicity: Markedly hypoechoic Shape: wider than tall. Margins: Smooth Echogenic foci: None Total points: 3 ACR TI-RADS category: 3 Nodule number: 2 Location: Right mid Size: 0.6 x 0.4 x 0.4 cm. Composition: Solid Echogenicity: Hypoechoic Shape: wider than tall. Margins: Smooth Echogenic foci: None Total points: 4 ACR TI-RADS category: 4 Nodule number: 3 Location: Left inferior Size: 1.3 x 0.6 x 0.7 cm. Composition: Solid Echogenicity: Hypoechoic Shape: wider than tall. Margins: Lobulated Echogenic foci: None Total points: 6 ACR TI-RADS category: 4 Nodule number: 4 Location: Left mid Size: 0.8 x 0.4 x 0.6 cm. Composition: Predominantly cystic Echogenicity: Anechoic Shape: wider than tall. Margins: Smooth Echogenic foci: Punctate Total points: 3 ACR TI-RADS category: 3 IMPRESSION: Small multifocal thyroid nodules. Best practice follow-up schedule as below ACR TI-RADS definitions and recommendations: TI-RADS 1 (benign): 0 points. FNA not needed. TI-RADS 2 (not suspicious): 2 points. FNA not needed. TI-RADS 3 (mildly suspicious): 3 points. * FNA if 2.5 cm or larger, follow up if 1.5 cm or larger (at 1, 3, and 5 years). TI-RADS 4 (moderately suspicious): 4-6 points. * FNA if 1.5 cm or larger, follow up if 1 cm or larger (at 1, 2, 3, and 5 years). TI-RADS 5 (highly suspicious): 7 points or more. * FNA if 1 cm or larger, follow up if 0.5 cm or larger (every year for 5 years). Approved by: Luiz Washington M.D. on 08/08/2022 at 15:46
== END ==
PROVIDERS: PCP Family Medicine; Referring Provider Family Medicine; Visit Provider Family Medicine
DX: E04.2 Nontoxic multinodular goiter (principal)
CPT/HCPCS: 76536

== ENCOUNTER → 2022-08-29 18:50 | Outpatient (CLI) | payer OTHER, MEDICAID, SELFPAY | PROVIDERS: PCP Family Medicine; Visit Provider Nurse Practitioner Family | DX: J02.9 Acute pharyngitis, unspecified (principal) | CPT/HCPCS: 87070; 87880 ==

== ENCOUNTER → 2022-09-06 15:48 | Outpatient (CLI) | payer OTHER, MEDICAID, SELFPAY ==
[2022-09-06 18:12] LABS: TSH w/ Reflex to FT4 0.84 uIU/mL (0.47-4.68)
[2022-09-19 15:40] LABS: Anti Mullerian Hormone 0.177 ng/mL (.)
== END ==
PROVIDERS: PCP Family Medicine; Referring Provider Specialist; Visit Provider Specialist
DX: N97.9 Female infertility, unspecified (principal); R53.83 Other fatigue
CPT/HCPCS: 36415; 82397; 83001; 84443

== ENCOUNTER → 2022-10-08 14:29 | Outpatient (CLI) | payer OTHER, MEDICAID, SELFPAY ==
[2022-10-08 15:48] LABS: Add Manual Diff / Slide Review NO; Basophils Absolute Auto 0 /uL (0-100); Basophils Percent Auto 0.5 % (0-2); Eosinophils Absolute Auto 300 /uL (0-450); Eosinophils Percent Auto 3.2 % (2-4); Hemoglobin 14.8 g/dL (12.0-16.0); Lymphocytes Absolute Auto 2100 /uL (1100-4500); Lymphocytes Percent Auto 25.6 % (25-40); Mean Corpuscular HGB Conc 34.4 % (30-36); Mean Corpuscular Hemoglobin 32.3 PG (26-34); Mean Corpuscular Volume 93.9 fL (80-100); Monocytes Absolute Auto 600 /uL (0-900); Monocytes Percent Auto 6.9 % (3-14); Neutrophils Absolute Auto 5200 /uL (1500-7000); Neutrophils Percent Auto 63.8 % (50-75); Platelet Count 213 X10^3/uL (150-400); Red Blood Cell Count 4.58 X10^6/uL (4.0-5.2); Red Cell Distribution Width 12.6 % (11.6-14.8); White Blood Cell Count 8.1 X10^3/uL (4.5-11.0)
[2022-10-08 16:20] LABS: Alanine Aminotransferase 41 IU/L (<35); Albumin 4.3 g/dL (3.5-5.0); Albumin Globulin Ratio 1.4 (1.0-2.8); Alkaline Phosphatase 71 U/L (38-126); Aspartate Aminotransferase 28 IU/L (14-36); BUN Creatinine Ratio 20.8 (6-22); Bilirubin Total 0.6 mg/dL (0.2-1.3); Blood Urea Nitrogen 15 mg/dL (7-17); Calcium 8.9 mg/dL (8.4-10.2); Carbon Dioxide 28 mmol/L (22-32); Chloride 104 mmol/L (98-107); Estimated Glomerular Filt Rate > 60 mL/min (>60); Globulin 3.1 g/dL (1.7-4.1); Glucose 98 mg/dL (70-100); HEMOLYSIS < 15 (0-50); Potassium 3.9 mmol/L (3.4-5.1); Sodium 138 mmol/L (137-145); Total Protein 7.4 g/dL (6.3-8.2)
[2022-10-08 16:32] LABS: Vitamin D 25 Hydroxy (D3) 41.8 ng/mL (30.0-100.0)
[2022-10-08 16:46] LABS: TSH w/ Reflex to FT4 0.88 uIU/mL (0.47-4.68)
== END ==
PROVIDERS: PCP Family Medicine; Referring Provider Family Medicine; Visit Provider Family Medicine
DX: E04.9 Nontoxic goiter, unspecified (principal); Z13.220 Encounter for screening for lipoid disorders; Z13.21 Encounter for screening for nutritional disorder
CPT/HCPCS: 36415; 80053; 82306; 84443; 85025

== ENCOUNTER → 2022-11-30 18:28 | Outpatient (CLI) | payer OTHER, MEDICAID, SELFPAY ==
[2022-11-30 20:49] LABS: Urine N gonorrhoeae NOT DETECTED
[2022-11-30 20:50] LABS: Urine Chlamydia NOT DETECTED
== END ==
PROVIDERS: PCP Family Medicine; Visit Provider Physician Assistant
DX: R30.0 Dysuria (principal)
CPT/HCPCS: 81002; 87086; 87491; 87591